=== PATIENT | male | born 1940 | race Caucasian/White ===

== ENCOUNTER 2021-05-27 08:35 | Emergency (ER) | payer MEDICARE, SELFPAY ==
[2021-05-27] VITALS (12 sets, daily range): BP systolic 105–151; BP diastolic 39–69; PULSE 65–94; RESP 16–21; TEMP 36.9–38.8; O2SAT 94–98; BMI 39.2
--- NOTE | ~2021-05-27 | XR_ITS ---
EXAMINATION: CHEST, BILATERAL KNEE AND BILATERAL HIPS. CLINICAL INFORMATION: Fall. COMPARISON: None TECHNIQUE: Chest one view. 4 views each knee, AP pelvis and 2 views each hip. FINDINGS: Chest: The lungs are well-expanded and clear. The heart size and pulmonary vascularity is normal. There is mild spondylosis dorsal spine. No lytic process seen. Right knee: There is moderate to severe loss of tricompartment joint space with periarticular spurring but no loose body seen. No abnormal joint effusion. No acute fracture or dislocation. There is mild varus deformity.. The soft tissues are normal. Left knee: There is moderate loss of medial mild loss of patellofemoral and lateral compartment joint space with moderate periarticular spurring medial compartment. No visible acute fracture, dislocation or subluxation seen. No abnormal joint effusion. No bony erosive changes. AP pelvis: There is loss of bilateral SI joint space. Hip joint spaces are maintained. No visible acute fracture or dislocation seen. Right hip: There is no visible acute fracture, dislocation or lytic process. The soft tissues are normal.. There are enthesophytes along the hip joint and greater trochanter. Left hip: There is joint space is maintained normal. No fracture or dislocation. There is periarticular spurring enthesophytes along the greater trochanter. XR/XR knee RT 4V IMPRESSION: No acute process seen in the chest. 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 No visible fracture or dislocation in either knee. No joint effusion. Mild degenerative changes bilateral SI joints. No acute fracture or dislocation or bony erosive changes in either hip joints. Unremarkable soft tissues.
--- NOTE | ~2021-05-27 | XR_ITS ---
EXAMINATION: CHEST, BILATERAL KNEE AND BILATERAL HIPS. CLINICAL INFORMATION: Fall. COMPARISON: None TECHNIQUE: Chest one view. 4 views each knee, AP pelvis and 2 views each hip. FINDINGS: Chest: The lungs are well-expanded and clear. The heart size and pulmonary vascularity is normal. There is mild spondylosis dorsal spine. No lytic process seen. Right knee: There is moderate to severe loss of tricompartment joint space with periarticular spurring but no loose body seen. No abnormal joint effusion. No acute fracture or dislocation. There is mild varus deformity.. The soft tissues are normal. Left knee: There is moderate loss of medial mild loss of patellofemoral and lateral compartment joint space with moderate periarticular spurring medial compartment. No visible acute fracture, dislocation or subluxation seen. No abnormal joint effusion. No bony erosive changes. AP pelvis: There is loss of bilateral SI joint space. Hip joint spaces are maintained. No visible acute fracture or dislocation seen. Right hip: There is no visible acute fracture, dislocation or lytic process. The soft tissues are normal.. There are enthesophytes along the hip joint and greater trochanter. Left hip: There is joint space is maintained normal. No fracture or dislocation. There is periarticular spurring enthesophytes along the greater trochanter. XR/XR knee LT 4V IMPRESSION: No acute process seen in the chest. 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 No visible fracture or dislocation in either knee. No joint effusion. Mild degenerative changes bilateral SI joints. No acute fracture or dislocation or bony erosive changes in either hip joints. Unremarkable soft tissues.
--- NOTE | ~2021-05-27 | XR_ITS ---
EXAMINATION: CHEST, BILATERAL KNEE AND BILATERAL HIPS. CLINICAL INFORMATION: Fall. COMPARISON: None TECHNIQUE: Chest one view. 4 views each knee, AP pelvis and 2 views each hip. FINDINGS: Chest: The lungs are well-expanded and clear. The heart size and pulmonary vascularity is normal. There is mild spondylosis dorsal spine. No lytic process seen. Right knee: There is moderate to severe loss of tricompartment joint space with periarticular spurring but no loose body seen. No abnormal joint effusion. No acute fracture or dislocation. There is mild varus deformity.. The soft tissues are normal. Left knee: There is moderate loss of medial mild loss of patellofemoral and lateral compartment joint space with moderate periarticular spurring medial compartment. No visible acute fracture, dislocation or subluxation seen. No abnormal joint effusion. No bony erosive changes. AP pelvis: There is loss of bilateral SI joint space. Hip joint spaces are maintained. No visible acute fracture or dislocation seen. Right hip: There is no visible acute fracture, dislocation or lytic process. The soft tissues are normal.. There are enthesophytes along the hip joint and greater trochanter. Left hip: There is joint space is maintained normal. No fracture or dislocation. There is periarticular spurring enthesophytes along the greater trochanter. XR/XR chest 1V IMPRESSION: No acute process seen in the chest. 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 No visible fracture or dislocation in either knee. No joint effusion. Mild degenerative changes bilateral SI joints. No acute fracture or dislocation or bony erosive changes in either hip joints. Unremarkable soft tissues.
--- NOTE | ~2021-05-27 | CT_ITS ---
EXAMINATION: CT ABDOMEN AND PELVIS WITH CONTRAST CLINICAL INFORMATION: Elevated WBC. COMPARISON: Renal ultrasound of 05/21/2021 TECHNIQUE: Multidetector volumetric images were obtained from the superior aspect of the liver through the pubic symphysis following administration 85 mL of Omnipaque 350 intravenous contrast. Sagittal and coronal reformatted images were obtained on the technologist's workstation. Oral contrast: No This CT examination was performed using dose optimization techniques as appropriate, variously including the following: *Automated exposure control *Adjustment of mA and/or kV according to patient size (this includes techniques or standardized protocols for targeted exams where dose is matched to indication/reason for exam; i.e. extremities or head) *Use of iterative reconstruction technique DLP: 1163 mGy-cm FINDINGS: LUNG BASES: Mild bronchiectatic changes are noted at the lung bases. Minimal dependent atelectasis. No pleural or pericardial effusion. Cardiac size is normal. LIVER, GALLBLADDER, AND BILIARY TREE: The liver is normal in size, shape and attenuation. Innumerable diffusely scattered hypodense liver lesions are noted of varying sizes ranging from a few millimeters to a largest one at the junction of hepatic segments 5 and 6 measuring 3.9 cm in maximum dimension. The lesions greater than 1 cm in size and represent cysts by CT Hounsfield units criteria. Subcentimeter lesions are too small to characterize accurately. Several of the liver lesions demonstrate peripheral rim calcifications. The gallbladder is unremarkable with no evidence of radiopaque gallstones, gallbladder wall thickening, or obvious pericholecystic inflammatory changes. No biliary ductal dilatation. Common bile duct is normal in caliber and there is no evidence of filling defect in the common bile duct. PANCREAS: Unremarkable. SPLEEN: Unremarkable. ADRENAL GLANDS: Unremarkable. KIDNEYS AND URETERS: The kidneys are normal in size, shape and attenuation. A 4.6 cm partially exophytic hypodense lesion is noted from the lower pole of the left kidney laterally representing a cyst by CT Hounsfield units criteria; there is likely thin septation with punctate calcifications in the superior inferior aspect of the cyst (series 4 image 273, 303). The cyst is not significantly changed in size compared to previous ultrasound of 08/12/2019. No imaging follow-up of this cyst is recommended. There is no evidence of radiopaque urinary tract calculi, hydroureteronephrosis or significant perinephric stranding. There is an ill-defined area of abnormal hypoattenuation in the lower pole of the right kidney (series 4 image 309, series 5 image 48); possibility of focal pyelonephritis in this region cannot be excluded. A few small scattered hypodense right renal lesions, with the most prominent one in the mid kidney anteromedially represents a benign cyst by CT Hounsfield units criteria and no further imaging follow-up is recommended. A 1.1 cm peripelvic cyst in the right renal lower pole posteromedially. BLADDER: Unremarkable. 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 There is peristomal hernia containing omental fat and multiple nonobstructed small bowel loops. There is no evidence of abnormal bowel dilatation or bowel obstruction. 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 LYMPH NODES: No pathologically enlarged lymph nodes are seen. VASCULAR: The aortoiliac vessels are normal in caliber. Moderate to severe calcific atherosclerosis of the aorta and iliac vessels. PELVIC VISCERA: Unremarkable. OSSEOUS STRUCTURES: Prominent size anterolateral endplate osteophytes are noted in the visualized spine. Facet arthropathy in the lower lumbar spine. No acute or suspicious osseous lesions. Partial fusion of the bilateral sacroiliac joints is suspected. CT/CT abdomen pelvis w con IMPRESSION: Focal area of abnormal hypoattenuation in the lower pole of the right kidney is nonspecific, findings can be seen in the setting of pyelonephritis. No evidence of renal parenchymal or perirenal abscess collection at this time. Recommend clinical correlation and correlation with lab values and urinalysis. Multiple bilateral hypodense renal lesions representing cysts. No further imaging follow-up of this cyst is recommended. Innumerable hypodense liver lesions as detailed above; findings are consistent with polycystic liver disease. Changes suggestive of total colectomy and an ileostomy in the right lower abdominal quadrant with stomal/peristomal hernia containing omental fat and multiple nonobstructed small bowel loops. No evidence of abnormal bowel dilatation or bowel obstruction. Recommend correlation with surgical history.
--- NOTE | ~2021-05-27 | XR_ITS ---
EXAMINATION: CHEST, BILATERAL KNEE AND BILATERAL HIPS. CLINICAL INFORMATION: Fall. COMPARISON: None TECHNIQUE: Chest one view. 4 views each knee, AP pelvis and 2 views each hip. FINDINGS: Chest: The lungs are well-expanded and clear. The heart size and pulmonary vascularity is normal. There is mild spondylosis dorsal spine. No lytic process seen. Right knee: There is moderate to severe loss of tricompartment joint space with periarticular spurring but no loose body seen. No abnormal joint effusion. No acute fracture or dislocation. There is mild varus deformity.. The soft tissues are normal. Left knee: There is moderate loss of medial mild loss of patellofemoral and lateral compartment joint space with moderate periarticular spurring medial compartment. No visible acute fracture, dislocation or subluxation seen. No abnormal joint effusion. No bony erosive changes. AP pelvis: There is loss of bilateral SI joint space. Hip joint spaces are maintained. No visible acute fracture or dislocation seen. Right hip: There is no visible acute fracture, dislocation or lytic process. The soft tissues are normal.. There are enthesophytes along the hip joint and greater trochanter. Left hip: There is joint space is maintained normal. No fracture or dislocation. There is periarticular spurring enthesophytes along the greater trochanter. XR/XR hip BI w PEL1V IMPRESSION: No acute process seen in the chest. 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 No visible fracture or dislocation in either knee. No joint effusion. Mild degenerative changes bilateral SI joints. No acute fracture or dislocation or bony erosive changes in either hip joints. Unremarkable soft tissues.
--- NOTE | ~2021-05-27 | CT_ITS ---
EXAMINATION: CT BRAIN AND CT CERVICAL SPINE WITHOUT CONTRAST. CLINICAL INFORMATION: Fall. COMPARISON: None TECHNIQUE: 5 mm thin axial and reformatted 2 mm thin sagittal and coronal images of brain were obtained. Subsequently axial 3 mm thin and reformatted 2 mm thin sagittal and coronal images of cervical spine were obtained. DLP 1718 mGy. FINDINGS: Brain: There is no acute intra-axial, extra-axial bleed, masses, collection or midline shift. There is no acute infarction evolution. There is no edema. The lateral ventricles are symmetrical in size and configuration with mild prominence. There is mild periventricular hypodensity in both cerebral hemispheres without mass effect. Bone windows reveal no calvarial abnormality. Cervical spine: There is mild straightening of cervical lordosis. The vertebral heights are normal. There is minimal grade 1 anterolisthesis C3 over C4 and C4 over C5. There is loss of C5-C6 and C6-C7 and C7-T1 disc heights with moderate ventral and posterior spondylosis. No visible acute fracture, dislocation or subluxation seen. The craniovertebral junction and the C1-C2 alignment is normal except for mild degenerative spurring and the C1-C2 alignment. There is moderate left C2-C3, bilateral C3-C4, C4-C5 facet joint arthropathy and hypertrophy. The lung apices are clear. The thyroid glands are symmetrical and normal. Visualized salivary glands are symmetrical and normal. The prevertebral and the paravertebral soft tissues are normal. No visible acute fracture, dislocation or subluxation seen. CT/CT cervical spine wo con IMPRESSION: No acute intracranial process seen. No acute fracture or dislocation cervical spine. There are degenerative disc changes and spondylosis C5-C6 through C7-T1 disc levels. Grade 1 anterolisthesis C3 over C4 and C4-C5.
--- NOTE | 2021-05-27 08:58 | ECG_ITS ---
Test Reason : GENERALIZED WEAKNESS Blood Pressure : / mmHG Vent. Rate : 076 BPM Atrial Rate : 076 BPM P-R Int : 216 ms QRS Dur : 146 ms QT Int : 428 ms P-R-T Axes : 073 069 013 degrees QTc Int : 481 ms Sinus rhythm with 1st degree A-V block with Premature atrial complexes Right bundle branch block Abnormal ECG No previous ECGs available Referred By: Finn Shelton Electronically Signed By:MIO GARVEY MD
[2021-05-27 09:26] LABS: Basophils Percent Auto 0.1 % (0-2); Eosinophils Percent Auto 0.1 % (0-4); Hematocrit 39.9 % (42.0-52.0); Hemoglobin 12.5 g/dl (14.0-18.0); Imm Gran Abs Auto 0.08 X10*3/uL (0.00-0.03); Imm Gran Pct Auto 0.5 % (0.0-0.4); Lymphocytes Absolute Auto 0.4 X10*3/uL (1.2-4.9); Lymphocytes Percent Auto 2.5 % (20-40); MANUAL DIFF FLAG SCAN; Mean Corpuscular HGB Conc 31.3 g/dl (31.0-36.0); Mean Corpuscular Hemoglobin 31.4 pg (27.0-33.0); Mean Corpuscular Volume 100.3 fL (80.0-98.0); Mean Platelet Volume 8.7 fL (9.4-12.4); Monocytes Absolute Auto 0.7 X10*3/uL (0.1-1.2); Monocytes Percent Auto 4.2 % (2-11); Neutrophils Absolute Auto 15.1 x10*3/uL (2.0-8.3); Neutrophils Percent Auto 92.6 % (45-73); Platelet Count 161 X10*3/uL (160-400); Red Blood Count 3.98 X10*6/uL (4.60-5.80); Red Cell Distribution Width 13.4 % (11.0-16.0); SCAN SMEAR FLAG 1; White Blood Count 16.3 X10*3/uL (4.8-10.8)
--- NOTE | 2021-05-27 09:27 | ED_ITS ---
HPI - General Adult General Chief complaint: Fall <TANK Manuel - Last Filed: 05/27/21 17:09> Stated complaint: fall/weakness <TANK Manuel - Last Filed: 05/27/21 17:09> Time Seen by Provider: 05/27/21 08:57 <TANK Manuel - Last Filed: 05/27/21 17:09> Source: patient <TANK Manuel - Last Filed: 05/27/21 17:09> Mode of arrival: ambulatory <TANK Manuel - Last Filed: 05/27/21 17:09> Limitations: no limitations <TANK Manuel Last Filed: 05/27/21 17:09> History of Present Illness HPI narrative: 80-year-old male with history of high retention, DVT, ulcers colitis, stents placed 15 years ago and his heart presents to the ED for fall. Patient states walking from the bathroom back to his room and the floor was cleaned and was wet which caused him to slip and fall onto his knees. Patient states since yesterday with generalized weakness but had no neuro deficits. Patient does feel fatigued. Patient denied any slurred speech, loss of vision, paralysis of extremities, facial droop, or dizziness. States yesterday he also fell had another mechanical fall. Patient usually ambulate with walker. Patient states since incident this morning asymptomatic <TANK Manuel - Last Filed: 05/27/21 17:09> Related Data Home medications: Home Medications Medication Instructions Recorded Confirmed Flomax 0.4 mg PO BEDTIME 05/27/21 05/27/21 Januvia 100 mg PO DAILY 05/27/21 05/27/21 atenolol 25 mg tablet 1 tab PO DAILY 05/27/21 05/27/21 donepezil 10 mg tablet 1 tab PO DAILY 05/27/21 05/27/21 fenofibrate 160 mg tablet 1 tab PO DAILY 05/27/21 05/27/21 gabapentin 100 mg capsule 1 cap PO TID 05/27/21 05/27/21 glipizide 10 mg tablet 10 mg PO BID 05/27/21 05/27/21 insulin glargine 100 unit/mL 100 unit SUBCUT 05/27/21 subcutaneous solution (Lantus U-100 Insulin) rivaroxaban 20 mg tablet (Xarelto) 1 tab PO DAILY 05/27/21 05/27/21 <TANK Manuel Last Filed: 05/27/21 17:09> Allergies/adverse reactions: Allergies Allergy/AdvReac Type Severity Reaction Status Date / Time No Known Allergies Allergy Unverified 03/19/20 18:26 <TANK Manuel Last Filed: 05/27/21 17:09> Review of Systems Review of Systems: Yes all other systems are reviewed and are negative <TANK Manuel Last Filed: 05/27/21 17:09> Constitutional: Constitutional: Reports as per HPI, Reports no additional co nstitutional complaints and Reports fatigue <TANK Manuel Last Filed: 05/27/21 17:09> Eyes: Eyes: Reports as per HPI and Reports no additional eye complaints <TANK Manuel Last Filed: 05/27/21 17:09> ENT: Reports system reviewed and no additional complaints, except as documented and Reports as per HPI <TANK Manuel Last Filed: 05/27/21 17:09> Cardiovascular: Cardiovascular: Reports as per HPI and Reports no additional cardiovascular complaints <TANK Manuel Last Filed: 05/27/21 17:09> Respiratory: Respiratory: Reports as per HPI and Reports no additional respiratory complaints <TANK Manuel Last Filed: 05/27/21 17:09> Gastrointestinal: Gastrointestinal: Reports as per HPI and Reports no additional gastrointestinal complaints <TANK Manuel Last Filed: 05/27 17:09> Genitourinary: Genitourinary: Reports no additional male genitourinary complaints and Reports as per HPI <TANK Manuel Last Filed: 05/27/21 17:09> Musculoskeletal: Musculoskeletal: Reports no additional musculoskeletal complaints and Reports as per HPI <TANK Manuel Last Filed: 05/27/21 17:09> Comments: Bilateral knee pain <TANK Manuel Last Filed: 05/27/21 17:09> Neurologic: Reports system reviewed and no additional complaints, except as documented and Reports as per HPI <TANK Manuel Last Filed: 05/27/21 17:09> Psychiatric: Psychiatric: Reports no additional psychiatric complaints and Reports as per HPI <TANK Manuel - Last Filed: 05/27/21 17:09> Endocrine: Endocrine: Reports fatigue <TANK Manuel - Last Filed: 05/27/21 17:09> [facility] Social History Social History: Social History Alcohol intake: never Patient Tobacco Use Status: Never used Tobacco Use of substances other than those prescribed or required for medical reasons: No Advance Directives: Yes Advance Directives Information Provided: No Advance Directives on File: No <TANK Manuel - Last Filed: 05/27/21 17:09> Physical Exam Vital Signs: Vital Signs: Last Vital Signs Temp 99.1 F 05/27/21 14:07 Pulse 84 05/27/21 14:07 Resp 18 05/27/21 14:07 BP 151/53 H 05/27/21 14:07 Pulse Ox 96 05/27/21 14:07 Body Mass Index 39.2 <TANK Manuel - Last Filed: 05/27/21 17:09> Vital Signs: Last Vital Signs Temp 99.1 F 05/27/21 14:07 Pulse 84 05/27/21 14:07 Resp 18 05/27/21 14:07 BP 151/53 H 05/27/21 14:07 Pulse Ox 96 05/27/21 14:07 Body Mass Index 39.2 <Nav De La Cruz MD - Last Filed: 05/27/21 13:57> Const: General: cooperative, healthy appearing, comfortable, no acute distress, well developed, alert, awake and Physically active <TANK Manuel - Last Filed: 05/27/21 17:09> Orientation/consciousness: patient oriented x3 <TANK Manuel - Last Filed: 05/27/21 17:09> HENMT: Head: Yes normal to inspection, Yes No palpable skull fracture present, Yes normocephalic, Yes atraumatic, Yes abrasion, No Selby's sign, No contusion, No cranial bruits, No hematoma, No laceration, No occipital foramen tenderness, No palpable skull fracture, No raccoon eyes, No scalp lesion, No scalp tenderness and No Temporal artery tenderness present <TANK Manuel - Last Filed: 05/27/21 17:09> Eyes: General: appearance normal, both eyes and all related structures <Finn Nikita, PA Tami Last Filed: 05/27/21 17:09> Neck: Neck: Yes normal visual inspection, Yes full ROM, Yes no lymphadenopathy, Yes no meningeal signs, Yes trachea midline, Yes supple and No tender <Finn Nikita, PA Last Filed: 05/27/21 17:09> Chest: Chest palpation & inspection: normal inspection of the chest and normal palpation of entire chest wall <TANK Manuel Last Filed: 05/27/21 17:09> Resp: Effort & Inspection: normal respiratory effort and able to speak in complete sentences <TANK Manuel Last Filed: 05/27/21 17:09> Auscultation: clear to auscultation bilaterally <TANK Manuel Filed: 05/27/21 17:09> GI: Inspection: Yes normal to inspection and No abdominal wall ecchymosis <TANK Manuel Filed: 05/27/21 17:09> Palpation (GI): Soft to palpation, not firm, nontender, no guarding and not rigid <Finn Nikita, PA Last Filed: 05/27/21 17:09> : General: No CVA tenderness and Yes no CVA tenderness <Finn Nikita, PA Filed: 05/27/21 17:09> Back/Spine/Pelvis: Back: no CVA tenderness, No CVA tenderness and No back tenderness <TANK Manuel Last Filed: 05/27/21 17:09> Skin: General skin exam: no rashes or lesions noted and elasticity normal <Finn Nikita, PA Filed: 05/27/21 17:09> Neuro: Other: Negative facial droop. Negative pronator drift. All extremities equal strength 5+. [id number] and rapid hand movement intact. Negative slurred speech. <TANK Manuel Last Filed: 05/27/21 17:09> General: patient oriented x3, gait normal, no meningeal signs and CN's II-XI intact bilaterally <TANK Manuel Last Filed: 05/27/21 17:09> Cranial nerves: Yes CN's II-XII intact bilaterally <TANK Manuel Last Filed: 05/27/21 17:09> Extrem: Other: Patient able to move all extremities. Negative for any deformity, crepitus, or tenderness on evaluation of extremities. Negative for a ny internal/ external rotation of lower extremities. Patient states right knee pain but states chronic and is supposed to have knee replacement surgery. Patient states since fall able to walk with walker at home. Patient came to the ED to be evaluated <TANK Manuel Last Filed: 05/27/21 17:09> General: Yes normal to inspection and Yes full ROM <TANK Manuel Last Filed: 05/27/21 17:09> Psych: Appearance: grossly normal, well kempt and not disheveled <TANK Manuel Last Filed: 05/27/21 17:09> NIH Stroke Scale Internal: Other <TANK Manuel Last Filed: 05/27/21 17:09> Level of Consciousness: Alert <TANK Manuel Last Filed: 05/27/21 17:09> Level of Consciousness Questions: Answers both questions correctly <TANK Manuel Last Filed: 05/27/21 17:09> Level of Consciousness Commands: Performs both tasks correctly <TANK Manuel Last Filed: 05/27/21 17:09> Best Gaze: Normal <TANK Manuel Last Filed: 05/27/21 17:09> Visual: No visual loss <TANK Manuel Last Filed: 05/27/21 17:09> Facial Palsy: Normal <TANK Manuel Last Filed: 05/27/21 17:09> Motor Arm (Right): No drift <TANK Manuel Last Filed: 05/27/21 17:09> Motor Arm (Left): No drift <TANK Manuel Last Filed: 05/27/21 17:09> Motor Leg (Right): No drift <TANK Manuel Last Filed: 05/27/21 17:09> Motor Leg (Left): No drift <TANK Manuel Last Filed: 05/27/21 17:09> Limb Ataxia: Absent <Finn Nikita, PA - Last Filed: 05/27/21 17:09> Sensory: Normal <Finn Nikita, PA - Last Filed: 05/27/21 17:09> Best Language: No aphasia <Finn Nikita, PA - Last Filed: 05/27/21 17:09> Dysarthia: Normal <Finn Nikita, PA - Last Filed: 05/27/21 17:09> Extinction and Inattention: No abnormality <TANK Manuel - Last Filed: 05/27/21 17:09> Score: 0 <Finn Nikita, PA - Last Filed: 05/27/21 17:09> Course Course Course Narrative: Patient alert oriented x3 and well appearing. Today patient fell onto his knees yesterday he fell in his head. Presently patient is symptomatic. Due to patient stating fatigue since yesterday and mechanical fall will do medical workup. EKG, troponin, CPK, chest x-ray, UA, and other x-rays ordered to make sure there is no fracture although patient denies any pain anywhere in the body. <TANK Manuel - Last Filed: 05/27/21 17:09> Reevaluation(s) Reevaluation #1: Initial orthostatics were positive. EKG negative STEMI. White blood cell count [id number]. Presently no source of infection. Reason for chest x-ray UA results. CT normal. <TANK Manuel - Last Filed: 05/27/21 17:09> Reevaluation #2: I agree with the history and plan <Nav De La Cruz MD - Last Filed: 05/27/21 13:57> Time: 13:57 <Nav De La Cruz MD - Last Filed: 05/27/21 13:57> Reevaluation #3: Patient's repeat orthostatics normal. Both troponins negative. Images negative for fracture. CT abdomen does not show any acute medical/surgical etiology. CT scan states possible pyelonephritis but patient has a normal UA and most likely has polycystic disease. Patient was given walker to try to ambulate with a but still states feeling fatigue. Negative for any neuro deficits. Negative for any nystagmus. Discussed with Dr. De La Cruz and we agreed not suspecting posterior stroke. Patient had initial orthostatic hypotension which caused his weakness. Patient Told me front of his son that he admits to not drinking water but losts of coffee and food. Son and patient states patient was admitted 3 times for similar presentation for dehydration. Patient agreeable with plan for overnight stay in the ER for PT case management e valuation morning. <TANK Manuel - Last Filed: 05/27/21 17:09> Medical Decision Making Lab Data Result diagrams: : 05/27/21 09:17 05/27/21 09:17 <TANK Manuel - Last Filed: 05/27/21 17:09> Labs: Lab Results 05/27/21 05/27/21 05/27/21 Range/Units 09:17 09:17 09:17 WBC 16.3 H (4.8-10.8) X10*3/uL RBC 3.98 L (4.60-5.80) X10*6/uL Hgb 12.5 L (14.0-18.0) g/dl Hct 39.9 L (42.0-52.0) % MCV 100.3 H (80.0-98.0) fL MCH 31.4 (27.0-33.0) pg MCHC 31.3 (31.0-36.0) g/dl RDW 13.4 (11.0-16.0) % Plt Count 161 (160-400) X10*3/uL MPV 8.7 L (9.4-12.4) fL Immature Gran % (Auto) 0.5 H (0.0-0.4) % Neut % (Auto) 92.6 H (45-73) % Lymph % (Auto) 2.5 L (20-40) % [place] % (Auto) 4.2 (2-11) % Eos % (Auto) 0.1 (0-4) % Baso % (Auto) 0.1 (0-2) % Lymph # (Auto) 0.4 L (1.2-4.9) X10*3/uL [place] # (Auto) 0.7 (0.1-1.2) X10*3/uL Eos # (Auto) 0.0 (0.0-0.4) X10*3/uL Baso # (Auto) 0.0 (0.0-0.2) X10*3/uL Abs Immat Gran (auto) 0.08 H (0.00-0.03) X10*3/uL Absolute Neuts (auto) 15.1 H (2.0-8.3) x10*3/uL Absolute Nucleated RBC 0.000 (0.0-0.012) X10*3/uL Nucleated RBC % (auto) 0.0 (0.0-0.2) /100WBC Smear Tech's Comments VERIFIED PT (9.9-13.0) SEC INR (0.9-1.1) APTT (24.1-38.0) SEC Sodium 141 (135-145) mmol/L Potassium 4.7 (3.3-5.1) mmol/L Chloride 107 (96-108) mmol/L Carbon Dioxide 25 (22-29) mmol/L Anion Gap 14 (12-20) BUN 23 H (9-16) mg/dL Creatinine 1.33 (0.5-1.4) mg/dL Estim Creat Clear Calc 51.5 Estimated GFR 51 Random Glucose 108 (60-115) mg/dL Lactic Acid (0.5-2.0) mmol/L Calcium 9.5 (8.4-10.2) mg/dL Total Bilirubin 0.8 (0.0-1.0) mg/dL AST 26 (5-37) U/L ALT 15 (0-40) U/L Alkaline Phosphatase 59 (39-117) U/L Total Creatine Kinase 299 H (38-174) U/L Troponin I High Sens 22.2 (<3.5-35.0) ng/L B-Natriuretic Peptide 73 (<100) pg/mL Total Protein 6.4 L (6.5-8.0) g/dL Albumin 3.9 (3.5-5.0) g/dL Urine Color Urine Appearance Urine pH (5.0-8.0) Ur Specific [place] (1.005-1.025) Urine Protein (NEG-TRACE) MG/DL Urine Glucose (UA) (NEG) MG/DL Urine Ketones (NEG) MG/DL Urine Blood (NEG) Urine Nitrite (NEG) Ur Leukocyte Esterase (NEG) Urine RBC (0) /HPF Urine WBC (0-4) /HPF Ur Squamous Epith Cells /LPF Urine Bacteria /LPF Urine Mucus /LPF COVID-19 (MARTHA) (Negative) COVID-19 Clin Com 05/27/21 05/27/21 05/27/21 Range/Units 09:17 10:02 10:50 WBC (4.8-10.8) X10*3/uL RBC (4.60-5.80) X10*6/uL Hgb (14.0-18.0) g/dl Hct (42.0-52.0) % MCV (80.0-98.0) fL MCH (27.0-33.0) pg MCHC (31.0-36.0) g/dl RDW (11.0-16.0) % Plt Count (160-400) X10*3/uL MPV (9.4-12.4) fL Immature Gran % (Auto) (0.0-0.4) % Neut % (Auto) (45-73) % Lymph % (Auto) (20-40) % [place] % (Auto) (2-11) % Eos % (Auto) (0-4) % Baso % (Auto) (0-2) % Lymph # (Auto) (1.2-4.9) X10*3/uL [place] # (Auto) (0.1-1.2) X10*3/uL Eos # (Auto) (0.0-0.4) X10*3/uL Baso # (Auto) (0.0-0.2) X10*3/uL Abs Immat Gran (auto) (0.00-0.03) X10*3/uL Absolute Neuts (auto) (2.0-8.3) x10*3/uL Absolute Nucleated RBC (0.0-0.012) X10*3/uL Nucleated RBC % (auto) (0.0-0.2) /100WBC Smear Tech's Comments PT 22.7 H (9.9-13.0) SEC INR 2.0 H (0.9-1.1) APTT 40.0 H (24.1-38.0) SEC Sodium (135-145) mmol/L Potassium (3.3-5.1) mmol/L Chloride (96-108) mmol/L Carbon Dioxide (22-29) mmol/L Anion Gap (12-20) BUN (9-16) mg/dL Creatinine (0.5-1.4) mg/dL Estim Creat Clear Calc Estimated GFR Random Glucose (60-115) mg/dL Lactic Acid 1.1 (0.5-2.0) mmol/L Calcium (8.4-10.2) mg/dL Total Bilirubin (0.0-1.0) mg/dL AST (5-37) U/L ALT (0-40) U/L Alkaline Phosphatase (39-117) U/L Total Creatine Kinase (38-174) U/L Troponin I High Sens (<3.5-35.0) ng/L B-Natriuretic Peptide (<100) pg/mL Total Protein (6.5-8.0) g/dL Albumin (3.5-5.0) g/dL Urine Color YELLOW Urine Appearance CLEAR Urine pH 5.5 (5.0-8.0) Ur Specific [place] 1.025 (1.005-1.025) Urine Protein NEG (NEG-TRACE) MG/DL Urine Glucose (UA) NEG (NEG) MG/DL Urine Ketones NEG (NEG) MG/DL Urine Blood 1+ H (NEG) Urine Nitrite NEG (NEG) Ur Leukocyte Esterase NEG (NEG) Urine RBC 1-4 (0) /HPF Urine WBC 0-2 (0-4) /HPF Ur Squamous Epith Cells TRACE /LPF Urine Bacteria NONE /LPF Urine Mucus TRACE /LPF COVID-19 (MARTHA) (Negative) COVID-19 Clin Com 05/27/21 05/27/21 Range/Units 11:57 12:34 WBC (4.8-10.8) X10*3/uL RBC (4.60-5.80) X10*6/uL Hgb (14.0-18.0) g/dl Hct (42.0-52.0) % MCV (80.0-98.0) fL MCH (27.0-33.0) pg MCHC (31.0-36.0) g/dl RDW (11.0-16.0) % Plt Count (160-400) X10*3/uL MPV (9.4-12.4) fL Immature Gran % (Auto) (0.0-0.4) % Neut % (Auto) (45-73) % Lymph % (Auto) (20-40) % [place] % (Auto) (2-11) % Eos % (Auto) (0-4) % Baso % (Auto) (0-2) % Lymph # (Auto) (1.2-4.9) X10*3/uL [place] # (Auto) (0.1-1.2) X10*3/uL Eos # (Auto) (0.0-0.4) X10*3/uL Baso # (Auto) (0.0-0.2) X10*3/uL Abs Immat Gran (auto) (0.00-0.03) X10*3/uL Absolute Neuts (auto) (2.0-8.3) x10*3/uL Absolute Nucleated RBC (0.0-0.012) X10*3/uL Nucleated RBC % (auto) (0.0-0.2) /100WBC Smear Tech's Comments PT (9.9-13.0) SEC INR (0.9-1.1) APTT (24.1-38.0) SEC Sodium (135-145) mmol/L Potassium (3.3-5.1) mmol/L Chloride (96-108) mmol/L Carbon Dioxide (22-29) mmol/L Anion Gap (12-20) BUN (9-16) mg/dL Creatinine (0.5-1.4) mg/dL Estim Creat Clear Calc Estimated GFR Random Glucose (60-115) mg/dL Lactic Acid (0.5-2.0) mmol/L Calcium (8.4-10.2) mg/dL Total Bilirubin (0.0-1.0) mg/dL AST (5-37) U/L ALT (0-40) U/L Alkaline Phosphatase (39-117) U/L Total Creatine Kinase (38-174) U/L Troponin I High Sens 24.7 (<3.5-35.0) ng/L B-Natriuretic Peptide (<100) pg/mL Total Protein (6.5-8.0) g/dL Albumin (3.5-5.0) g/dL Urine Color Urine Appearance Urine pH (5.0-8.0) Ur Specific [place] (1.005-1.025) Urine Protein (NEG-TRACE) MG/DL Urine Glucose (UA) (NEG) MG/DL Urine Ketones (NEG) MG/DL Urine Blood (NEG) Urine Nitrite (NEG) Ur Leukocyte Esterase (NEG) Urine RBC (0) /HPF Urine WBC (0-4) /HPF Ur Squamous Epith Cells /LPF Urine Bacteria /LPF Urine Mucus /LPF COVID-19 (MARTHA) Negative (Negative) COVID-19 Clin Com See Note <TANK Manuel - Last Filed: 05/27/21 17:09> Lab Results 05/27/21 05/27/21 05/27/21 Range/Units 09:17 09:17 09:17 WBC 16.3 H (4.8-10.8) X10*3/uL RBC 3.98 L (4.60-5.80) X10*6/uL Hgb 12.5 L (14.0-18.0) g/dl Hct 39.9 L (42.0-52.0) % MCV 100.3 H (80.0-98.0) fL MCH 31.4 (27.0-33.0) pg MCHC 31.3 (31.0-36.0) g/dl RDW 13.4 (11.0-16.0) % Plt Count 161 (160-400) X10*3/uL MPV 8.7 L (9.4-12.4) fL Immature Gran % (Auto) 0.5 H (0.0-0.4) % Neut % (Auto) 92.6 H (45-73) % Lymph % (Auto) 2.5 L (20-40) % [place] % (Auto) 4.2 (2-11) % Eos % (Auto) 0.1 (0-4) % Baso % (Auto) 0.1 (0-2) % Lymph # (Auto) 0.4 L (1.2-4.9) X10*3/uL [place] # (Auto) 0.7 (0.1-1.2) X10*3/uL Eos # (Auto) 0.0 (0.0-0.4) X10*3/uL Baso # (Auto) 0.0 (0.0-0.2) X10*3/uL Abs Immat Gran (auto) 0.08 H (0.00-0.03) X10*3/uL Absolute Neuts (auto) 15.1 H (2.0-8.3) x10*3/uL Absolute Nucleated RBC 0.000 (0.0-0.012) X10*3/uL Nucleated RBC % (auto) 0.0 (0.0-0.2) /100WBC Smear Tech's Comments VERIFIED PT (9.9-13.0) SEC INR (0.9-1.1) APTT (24.1-38.0) SEC Sodium 141 (135-145) mmol/L Potassium 4.7 (3.3-5.1) mmol/L Chloride 107 (96-108) mmol/L Carbon Dioxide 25 (22-29) mmol/L Anion Gap 14 (12-20) BUN 23 H (9-16) mg/dL Creatinine 1.33 (0.5-1.4) mg/dL Estim Creat Clear Calc 51.5 Estimated GFR 51 Random Glucose 108 (60-115) mg/dL Lactic Acid (0.5-2.0) mmol/L Calcium 9.5 (8.4-10.2) mg/dL Total Bilirubin 0.8 (0.0-1.0) mg/dL AST 26 (5-37) U/L ALT 15 (0-40) U/L Alkaline Phosphatase 59 (39-117) U/L Total Creatine Kinase 299 H (38-174) U/L Troponin I High Sens 22.2 (<3.5-35.0) ng/L B-Natriuretic Peptide 73 (<100) pg/mL Total Protein 6.4 L (6.5-8.0) g/dL Albumin 3.9 (3.5-5.0) g/dL Urine Color Urine Appearance Urine pH (5.0-8.0) Ur Specific [place] (1.005-1.025) Urine Protein (NEG-TRACE) MG/DL Urine Glucose (UA) (NEG) MG/DL Urine Ketones (NEG) MG/DL Urine Blood (NEG) Urine Nitrite (NEG) Ur Leukocyte Esterase (NEG) Urine RBC (0) /HPF Urine WBC (0-4) /HPF Ur Squamous Epith Cells /LPF Urine Bacteria /LPF Urine Mucus /LPF COVID-19 (MARTHA) (Negative) COVID-19 Clin Com 05/27/21 05/27/21 05/27/21 Range/Units 09:17 10:02 10:50 WBC (4.8-10.8) X10*3/uL RBC (4.60-5.80) X10*6/uL Hgb (14.0-18.0) g/dl Hct (42.0-52.0) % MCV (80.0-98.0) fL MCH (27.0-33.0) pg MCHC (31.0-36.0) g/dl RDW (11.0-16.0) % Plt Count (160-400) X10*3/uL MPV (9.4-12.4) fL Immature Gran % (Auto) (0.0-0.4) % Neut % (Auto) (45-73) % Lymph % (Auto) (20-40) % [place] % (Auto) (2-11) % Eos % (Auto) (0-4) % Baso % (Auto) (0-2) % Lymph # (Auto) (1.2-4.9) X10*3/uL [place] # (Auto) (0.1-1.2) X10*3/uL Eos # (Auto) (0.0-0.4) X10*3/uL Baso # (Auto) (0.0-0.2) X10*3/uL Abs Immat Gran (auto) (0.00-0.03) X10*3/uL Absolute Neuts (auto) (2.0-8.3) x10*3/uL Absolute Nucleated RBC (0.0-0.012) X10*3/uL Nucleated RBC % (auto) (0.0-0.2) /100WBC Smear Tech's Comments PT 22.7 H (9.9-13.0) SEC INR 2.0 H (0.9-1.1) APTT 40.0 H (24.1-38.0) SEC Sodium (135-145) mmol/L Potassium (3.3-5.1) mmol/L Chloride (96-108) mmol/L Carbon Dioxide (22-29) mmol/L Anion Gap (12-20) BUN (9-16) mg/dL Creatinine (0.5-1.4) mg/dL Estim Creat Clear Calc Estimated GFR Random Glucose (60-115) mg/dL Lactic Acid 1.1 (0.5-2.0) mmol/L Calcium (8.4-10.2) mg/dL Total Bilirubin (0.0-1.0) mg/dL AST (5-37) U/L ALT (0-40) U/L Alkaline Phosphatase (39-117) U/L Total Creatine Kinase (38-174) U/L Troponin I High Sens (<3.5-35.0) ng/L B-Natriuretic Peptide (<100) pg/mL Total Protein (6.5-8.0) g/dL Albumin (3.5-5.0) g/dL Urine Color YELLOW Urine Appearance CLEAR Urine pH 5.5 (5.0-8.0) Ur Specific [place] 1.025 (1.005-1.025) Urine Protein NEG (NEG-TRACE) MG/DL Urine Glucose (UA) NEG (NEG) MG/DL Urine Ketones NEG (NEG) MG/DL Urine Blood 1+ H (NEG) Urine Nitrite NEG (NEG) Ur Leukocyte Esterase NEG (NEG) Urine RBC 1-4 (0) /HPF Urine WBC 0-2 (0-4) /HPF Ur Squamous Epith Cells TRACE /LPF Urine Bacteria NONE /LPF Urine Mucus TRACE /LPF COVID-19 (MARTHA) (Negative) COVID-19 Clin Com 05/27/21 05/27/21 Range/Units 11:57 12:34 WBC (4.8-10.8) X10*3/uL RBC (4.60-5.80) X10*6/uL Hgb (14.0-18.0) g/dl Hct (42.0-52.0) % MCV (80.0-98.0) fL MCH (27.0-33.0) pg MCHC (31.0-36.0) g/dl RDW (11.0-16.0) % Plt Count (160-400) X10*3/uL MPV (9.4-12.4) fL Immature Gran % (Auto) (0.0-0.4) % Neut % (Auto) (45-73) % Lymph % (Auto) (20-40) % [place] % (Auto) (2-11) % Eos % (Auto) (0-4) % Baso % (Auto) (0-2) % Lymph # (Auto) (1.2-4.9) X10*3/uL [place] # (Auto) (0.1-1.2) X10*3/uL Eos # (Auto) (0.0-0.4) X10*3/uL Baso # (Auto) (0.0-0.2) X10*3/uL Abs Immat Gran (auto) (0.00-0.03) X10*3/uL Absolute Neuts (auto) (2.0-8.3) x10*3/uL Absolute Nucleated RBC (0.0-0.012) X10*3/uL Nucleated RBC % (auto) (0.0-0.2) /100WBC Smear Tech's Comments PT (9.9-13.0) SEC INR (0.9-1.1) APTT (24.1-38.0) SEC Sodium (135-145) mmol/L Potassium (3.3-5.1) mmol/L Chloride (96-108) mmol/L Carbon Dioxide (22-29) mmol/L Anion Gap (12-20) BUN (9-16) mg/dL Creatinine (0.5-1.4) mg/dL Estim Creat Clear Calc Estimated GFR Random Glucose (60-115) mg/dL Lactic Acid (0.5-2.0) mmol/L Calcium (8.4-10.2) mg/dL Total Bilirubin (0.0-1.0) mg/dL AST (5-37) U/L ALT (0-40) U/L Alkaline Phosphatase (39-117) U/L Total Creatine Kinase (38-174) U/L Troponin I High Sens 24.7 (<3.5-35.0) ng/L B-Natriuretic Peptide (<100) pg/mL Total Protein (6.5-8.0) g/dL Albumin (3.5-5.0) g/dL Urine Color Urine Appearance Urine pH (5.0-8.0) Ur Specific [place] (1.005-1.025) Urine Protein (NEG-TRACE) MG/DL Urine Glucose (UA) (NEG) MG/DL Urine Ketones (NEG) MG/DL Urine Blood (NEG) Urine Nitrite (NEG) Ur Leukocyte Esterase (NEG) Urine RBC (0) /HPF Urine WBC (0-4) /HPF Ur Squamous Epith Cells /LPF Urine Bacteria /LPF Urine Mucus /LPF COVID-19 (MARTHA) Negative (Negative) COVID-19 Clin Com See Note <Nav De La Cruz MD - Last Filed: 05/27/21 13:57> ECG Data Interpretation: Sinus rhythm with first-degree AV block with premature atrial complexes. Ventricular rate 76. Peer interval 216. QRS 146. QTC 481. Negative <TANK Manuel - Last Filed: 05/27/21 17:09> Discharge Plan Discharge Clinical Impression: Generalized weakness <TANK Manuel - Last Filed: 05/27/21 17:09> Prescriptions: No Action donepezil 10 mg tablet 1 tab PO DAILY RF: 0 atenolol 25 mg tablet 1 tab PO DAILY RF: 0 gabapentin 100 mg capsule 1 cap PO TID RF: 0 fenofibrate 160 mg tablet 1 tab PO DAILY RF: 0 Xarelto 20 mg tablet 1 tab PO DAILY RF: 0 glipizide 10 mg Tablet 10 mg PO BID RF: 0 Flomax tablet 0.4 mg PO BEDTIME RF: 0 Januvia 100 mg PO DAILY RF: 0 Lantus U-100 Insulin 100 unit/mL Solution 100 unit SUBCUT RF: 0 <TANK Manuel - Last Filed: 05/27/21 17:09>
[2021-05-27 09:31] LABS: Prothrombin Time 22.7 SEC (9.9-13.0)
[2021-05-27 09:43] LABS: Alanine Aminotransferase 15 U/L (0-40); Albumin Level 3.9 g/dL (3.5-5.0); Alkaline Phosphatase 59 U/L (39-117); Anion Gap 14 (12-20); Aspartate Amino Transferase 26 U/L (5-37); Bilirubin Total 0.8 mg/dL (0.0-1.0); Blood Urea Nitrogen 23 mg/dL (9-16); Calcium 9.5 mg/dL (8.4-10.2); Carbon Dioxide 25 mmol/L (22-29); Chloride 107 mmol/L (96-108); Creatinine Clr Calc Pharmacy 51.5; Estimated Glomerular Filt Rate 51; Glucose Random 108 mg/dL (60-115); Potassium 4.7 mmol/L (3.3-5.1); Sodium 141 mmol/L (135-145); Total Protein 6.4 g/dL (6.5-8.0)
[2021-05-27 09:50] LABS: B Type Natriuretic Peptide 73 pg/mL (<100); Troponin-I High Sensitivity 22.2 ng/L (<3.5-35.0)
[2021-05-27 10:11] LABS: Appearance Urine CLEAR; Color Urine YELLOW; Glucose Urine UA NEG (NEG); Leukocyte Esterase Urine NEG (NEG); Nitrite Urine NEG (NEG); PH 5.5 (5.0-8.0); Specific Gravity - Urine 1.025 (1.005-1.025); UACC Culture Trigger NO; Urine Blood 1+ (NEG); Urine Ketones NEG (NEG); Urine Protein NEG (NEG-TRACE)
[2021-05-27 10:12] LABS: SLIDE REVIEW VERIFIED
[2021-05-27 10:25] LABS: Mucus Urine TRACE /LPF; Squamous Epithelial Cell Urine TRACE /LPF; WBC Urine 0-2 /HPF (0-4)
[2021-05-27] MEDS: 0.9 % Sodium Chloride 1,000 ML 999 ML IV ×2 (10:53→11:29)
[2021-05-27 11:07] LABS: Lactic Acid 1.1 mmol/L (0.5-2.0)
[2021-05-27] MEDS: iohexoL 350 MG/ML 100 ML INFUS..BTL IV (12:05)
[2021-05-27 12:21] LABS: COVID-19 Test Negative (Negative)
[2021-05-27 13:06] LABS: Troponin-I High Sensitivity 24.7 ng/L (<3.5-35.0)
[2021-05-27] MEDS: Acetaminophen 325 MG TABLET 650 MG PO (16:39)
[2021-05-27] MEDS: atenoloL 25 MG TABLET PO (17:22)
[2021-05-27] MEDS: Gabapentin 100 MG CAPSULE PO ×2 (17:22→20:44)
[2021-05-27] MEDS: Donepezil HCl 10 MG TABLET PO (17:22)
[2021-05-27] MEDS: Fenofibrate 160 MG TABLET PO (17:23)
[2021-05-27] MEDS: Rivaroxaban 20 MG TABLET PO (17:23)
[2021-05-27] MEDS: Tamsulosin HCL 0.4 MG CAPSULE PO (20:44)
[2021-05-27] MEDS: glipiZIDE 10 MG TABLET PO (20:44)
[2021-05-28 02:00] VITALS: BP 116/47; PULSE 72; RESP 16; TEMP 36.4; O2SAT 96
[2021-05-28 06:15] VITALS: BP 108/60; PULSE 85; RESP 20
[2021-05-28 07:41] VITALS: BP 127/47; PULSE 68
[2021-05-28] MEDS: glipiZIDE 10 MG TABLET PO (07:41)
[2021-05-28] MEDS: Gabapentin 100 MG CAPSULE PO (07:41)
[2021-05-28] MEDS: Donepezil HCl 10 MG TABLET PO (07:41)
[2021-05-28] MEDS: SITagliptin Phosphate 100 MG TABLET PO (07:41)
[2021-05-28] MEDS: Fenofibrate 160 MG TABLET PO (07:41)
[2021-05-28] MEDS: atenoloL 25 MG TABLET PO (07:41)
[2021-05-28] MEDS: Rivaroxaban 20 MG TABLET PO (07:41)
[2021-05-28 08:00] VITALS: BP 127/47; PULSE 68; RESP 16
--- NOTE | 2021-05-28 08:00 | PC.NURSE ---
pt covered in leaking ostomy from head to toe. linen soiled. pt cleaned and ostomy care provided. bed changed and pt re positioned and assisted to use bedside urinal. medicated per emar.
[2021-05-28 09:10] VITALS: O2SAT 92
--- NOTE | 2021-05-28 09:54 | MHC.CM.ED ---
Received case management consult overnight. Patient came to the ER due to weakness. Patient found to be mildly dehydrated. IVF and rest provided. Physical therapy eval completed. Home therapy is recommended. Attempted to meet with patient. Patient currently sleeping. Spoke with patient's son, Mega, via telephone at [phone]. Patient lives with his at [facility] independent living, ambulates with a walker and had no services prior to coming to the ER. PCP verified. Patient has a HCP. Mega will try to obtain a copy. Mega agreeable to referral to [facility]. Referral made via [employer]. Mega will come to ER to transport patient home. Patient, Lety TAYLOR and Finn FU aware. Continue to monitor for d/c needs.
== END 2021-05-28 10:37 | disposition home or self-care (01) ==
PROVIDERS: Physician Assistant; Emergency Provider Emergency Medicine; PCP Family Medicine
DX: R53.1 Weakness (principal); I95.1 Orthostatic hypotension; Z20.822 Contact with and (suspected) exposure to COVID-19; Z91.81 History of falling
CPT/HCPCS: 36415; 51701; 70450; 71045; 72125; 73521; 73564; 74177; 80053; 81001; 82550; 83605; 83880; 84484; 85025; 85610; 85730; 87040; 87635; 93005; 96360; 97162; 99285; Q9967

== ENCOUNTER 2021-11-24 14:00 | Outpatient (RCR) | payer MEDICARE, SELFPAY | END 2021-12-21 13:10 | disposition home or self-care (01) | LOC: HO.PT 14:00 | PROVIDERS: PCP Family Medicine; Visit Provider Family Medicine | DX: H81.10 Benign paroxysmal vertigo, unspecified ear (principal); M25.561 Pain in right knee | CPT/HCPCS: 95992; 97110; 97112; 97163; 97530 ==

== ENCOUNTER 2021-12-08 13:45 | Emergency (ER) | payer MEDICARE, SELFPAY ==
--- NOTE | ~2021-12-08 | XR_ITS ---
EXAMINATION: XR RIBS, RIGHT CLINICAL INFORMATION: Fall with pain COMPARISON: Chest x-ray of May 27, 2021 TECHNIQUE: PA chest with 3 views of the right ribs. FINDINGS: There is no evidence of acute parenchymal disease, pneumothorax, or pleural effusion. Heart normal size. No evidence of pulmonary edema. There is degenerative marginal spurring seen throughout the thoracic spine. There is an essentially nondisplaced fracture seen involving the anterolateral aspect of the right 10th rib. There is question of some osteopenia involving regions of the ribs which may be related to osteoporosis. Infiltrative process cannot be excluded. XR/XR ribs RT min 3V w CXR1V IMPRESSION: No acute parenchymal disease within the chest. No evidence of pneumothorax or hemothorax. Fracture anterolateral aspect of the right 10th rib. Osteopenia visualized bones as described.
[2021-12-08 13:53] VITALS: BP 138/70; BP 162/68; PULSE 63; PULSE 68; RESP 20; TEMP 36.8; O2SAT 99; BMI 35.8
--- NOTE | 2021-12-08 14:03 | ED_ITS ---
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 Patient tells me he slipped while he was in the shower hitting his right ribs on the shower wall. He denies hitting his head. No loss of consciousness. Since the fall he has had right rib pain. No abdominal pain, no nausea, vomiting. No headache, neck pain, back pain, dizziness, vision changes. Related Data Home Medications Medication Instructions Recorded Confirmed Flomax 0.4 mg PO BEDTIME 05/27/21 05/27/21 Januvia 100 mg PO DAILY 05/27/21 05/27/21 atenolol 25 mg tablet 1 tab PO DAILY 05/27/21 05/27/21 donepezil 10 mg tablet 1 tab PO DAILY 05/27/21 05/27/21 fenofibrate 160 mg tablet 1 tab PO DAILY 05/27/21 05/27/21 gabapentin 100 mg capsule 1 cap PO TID 05/27/21 05/27/21 glipizide 10 mg tablet 10 mg PO BID 05/27/21 05/27/21 insulin glargine 100 unit/mL 100 unit subcut 05/27/21 subcutaneous solution (Lantus U-100 Insulin) rivaroxaban 20 mg tablet (Xarelto) 1 tab PO DAILY 05/27/21 05/27/21 Previous Rx's Medication Instructions Recorded oxycodone 5 mg tablet 5 mg PO Q8H PRN pain #8 tabs 12/08/21 Allergies Allergy/AdvReac Type Severity Reaction Status Date / Time No Known Allergies Allergy Unverified 03/19/20 18:26 Review of Systems Review of Systems: Yes all other systems are reviewed and are negative Constitutional: Constitutional: Reports no additional constitutional complaints, Denies body ache(s), Denies chills, Denies fever(s), Denies headache(s) and Denies weakness Eyes: Eyes: Reports no additional eye complaints and Denies change in vision ENT: Reports system reviewed and no additional complaints, except as documented, Denies dizziness, Denies headache(s), Denies nasal congestion, Denies nasal discharge and Denies neck pain Cardiovascular: Cardiovascular: Reports no additional cardiovascular complaints, Reports chest pain, Denies leg edema and Denies dyspnea Respiratory: Respiratory: Reports no additional respiratory complaints, Denies cough and Denies dyspnea Gastrointestinal: Gastrointestinal: Reports no additional gastrointestinal complaints, Denies abdominal pain, Denies diarrhea, Denies nausea and Denies vomiting Genitourinary: Genitourinary: Denies urinary incontinence Musculoskeletal: Musculoskeletal: Reports no additional musculoskeletal comp laints, Denies back pain, Denies arthralgias, Denies joint swelling, Denies neck pain, Denies numbness and Denies tingling Integumentary/Breasts: Skin/Breast: Reports system reviewed and no additional complaints, except as docu and Denies rash Neurologic: Reports system reviewed and no additional complaints, except as documented, Denies Abnormal speech present, Denies dizziness, Denies headache(s), Denies numbness, Denies tingling and Denies weakness PMFSH Past Medical History Attestation statement: The following information was validated with the patient. Source: old records reviewed and nursing notes reviewed Social History Social History Alcohol intake: never Patient Tobacco Use Status: Never used Tobacco Advance Directives: Yes Advance Directives Information Provided: No Advance Directives on File: No Physical Exam Vital Signs: Vital Signs: Last Vital Signs Temp 98.3 F 12/08/21 13:53 Pulse 68 12/08/21 13:53 Resp 20 12/08/21 13:53 BP 162/68 H 12/08/21 13:53 Pulse Ox 99 12/08/21 13:53 O2 Del Method 12/08/21 13:53 BMI result Body Mass Index 35.8 Const: General: cooperative, healthy appearing, comfortable and no acute distress Orientation/consciousness: patient oriented x3 Limitations: no limitations HEENT: Head: Yes normal to inspection Ears: hearing grossly normal bilaterally and TM's normal bilaterally General nose exam: Normal external nose present Face and sinus: Yes normal facial exam Mouth: Normal oral and palatal mucosa present Throat: Yes posterior oropharynx normal, Yes tonsils normal and Yes uvula midline Eyes: General: appearance normal, both eyes and all related structures Pupils: Equal, round and reactive pupils present Neck: Other: No cervical tenderness, step-offs deformities Neck: Yes normal visual inspection and Yes full ROM Chest: Other: Tenderness to the right lateral chest wall with no crepitus or ecchymosis. Chest palpation & inspection: normal inspection of the chest Resp: Effort & Inspection: normal respiratory effort Auscultation: clear to auscultation bilaterally Cardio: Rate: regular rate Rhythm: regular rhythm Peripheral pulses: Peripheral pulses 2+ throughout GI: Inspection: Yes normal to inspection Palpation (GI): Soft to palpation and nontender Auscultation: normal bowel sounds Back/Spine/Pelvis: Thoracic/Lumbar Spine: thoracic and lumbar spine normal to inspection Skin: General skin exam: no rashes or lesions noted Neuro: General: patient oriented x3, moves all extremities, no focal motor deficits and normal sensation to monofilament Cranial nerves: Yes CN's II-XII intact bilaterally, Yes Equal, round and reactive pupils present, Yes Bilaterally intact EOM present, Yes Nystagmus not present, Yes Normal facial strength present and Yes Midline tongue present Cognition (Neuro): normal cognition Speech: No Abnormal speech present Gait exam (Neuro): Normal gait present Motor exam (neuro): 5/5 motor strength present throughout Sensory Exam: Normal double simultaneous stimulation for sensation Extrem: General: Yes normal to inspection Course Course Course Narrative: 81-year-old male here with right chest wall pain after mechanical fall which occurred just prior to arrival. No head injury or loss of consciousness. Normal neuro exam. Will obtain x-ray of the right ribs and provide analgesia Reevaluation(s) Reevaluation #1: Chest x-ray shows a solitary rib fracture over the 10th rib which is nondisplaced. Patient has stable vital signs. No hypoxia. He was instructed how to use an incentive spirometer. He has no abdominal pain. No vomiting. No headache or reports of head injury. I reviewed with the patient that he should return should he developed the symptoms. He should also return for any shortness of breath, cough or fever. Reviewed worrisome signs and symptoms with the patient and his family. Comfortable plan for discharge home. Time: 15:30 MDM - Fall MDM Narrative Medical decision making narrative: Contusion, fracture Medical Records Attestation: I reviewed the patient's medical records. Lab Data Attestation: I reviewed the patient's lab results. Imaging Data Chest x-ray: Attestation: I personally reviewed and interpreted this imaging study as follows: Radiologist's impression: [address] [address] XRay Report Signed Patient: Kevin Pena MR#: [id number] : 1940 Acct:[id number] Age/Sex: 81 / M ADM Date: 12/08/21 Loc: HO.ED Attending Dr: Ordering Physician: Mary Jo Miles NP Date of Service: 12/08/21 Procedure(s): XR ribs RT min 3V w CXR1V Accession Number(s): [id number] cc: Mary Jo Miles NP~ EXAMINATION: XR RIBS, RIGHT CLINICAL INFORMATION: Fall with pain COMPARISON: Chest x-ray of May 27, 2021 TECHNIQUE: PA chest with 3 views of the right ribs. FINDINGS: There is no evidence of acute parenchymal disease, pneumothorax, or pleural effusion. Heart normal size. No evidence of pulmonary edema. There is degenerative marginal spurring seen throughout the thoracic spine. There is an essentially nondisplaced fracture seen involving the anterolateral aspect of the right 10th rib. There is question of some osteopenia involving regions of the ribs which may be related to osteoporosis. Infiltrative process cannot be excluded. XR/XR ribs RT min 3V w CXR1V IMPRESSION: No acute parenchymal disease within the chest. No evidence of pneumothorax or hemothorax. ? Fracture anterolateral aspect of the right 10th rib. ? Osteopenia visualized bones as described. ? ? ? Discharge Plan Discharge Clinical Impression: Closed rib fracture Patient Disposition: Home, Self-Care Instructions: Rib Fracture (ED) Additional Instructions: Use incentive spirometer 10 times a day Tylenol several times a day for pain Only takes oxycodone as needed Return for severe pain, difficulty breathing, cough, fever Prescriptions: New oxycodone 5 mg tablet 5 mg PO Q8H PRN (Reason: pain) Qty: 8 0RF Rx Instructions: Partial Fill upon patient request. No Action donepezil 10 mg tablet 1 tab PO DAILY atenolol 25 mg tablet 1 tab PO DAILY gabapentin 100 mg capsule 1 cap PO TID fenofibrate 160 mg tablet 1 tab PO DAILY Xarelto 20 mg tablet 1 tab PO DAILY glipizide 10 mg Tablet 10 mg PO BID Flomax tablet 0.4 mg PO BEDTIME Januvia 100 mg PO DAILY Lantus U-100 Insulin 100 unit/mL Solution 100 unit SUBCUT Referrals: Shahid Reno MD [Primary Care Provider] - 1 week
[2021-12-08] MEDS: oxyCODONE HCl Immed Release 5 MG TABLET PO (14:17)
[2021-12-08] MEDS: Acetaminophen 325 MG TABLET 975 MG PO (14:17)
== END 2021-12-08 15:48 | disposition home or self-care (01) ==
PROVIDERS: Emergency Provider Emergency Medicine; PCP Family Medicine
DX: S22.31XA Fracture of one rib, right side, initial encounter for closed fracture (principal); W18.2XXA Fall in (into) shower or empty bathtub, initial encounter; Y93.E1 Activity, personal bathing and showering; Y92.031 Bathroom in apartment as the place of occurrence of the external cause; Y99.9 Unspecified external cause status
CPT/HCPCS: 71101; 99283

== ENCOUNTER 2022-10-20 09:23 | Emergency (ER) | payer MEDICARE, SELFPAY ==
--- NOTE | ~2022-10-20 | CT_ITS ---
EXAMINATION: CT HEAD W/O IV CONTRAST CT CERVICAL SPINE W/O IV CONTRAST CLINICAL INFORMATION: Unwitnessed fall. Patient on blood thinner. Possible head and neck injury. COMPARISON: 05/27/2021 TECHNIQUE: Head - Contiguous axial imaging of the head was performed from the skull base to the vertex without the administration of intravenous contrast, and axial images are reconstructed at 2 mm and 5 mm slice thickness. Cervical spine - A volumetric, helical CT acquisition of the cervical spine was obtained without contrast; in addition to the standard set of axial images, multiplanar reformatted images were provided in the coronal and sagittal imaging planes. This CT examination was performed using dose optimization techniques as appropriate, variously including the following: *Automated exposure control *Adjustment of mA and/or kV according to patient size (this includes techniques or standardized protocols for targeted exams where dose is matched to indication/reason for exam; i.e. extremities or head) *Use of iterative reconstruction technique DLP: 1358 mGy-cm (total) FINDINGS: HEAD: There is mild amount of hyperdense subarachnoid hemorrhage overlying right cerebral hemisphere in region of right central and precentral sulcus. Atherosclerotic calcification of vertebral and cavernous carotid arteries. Chronic patchy hypoattenuation within the supratentorial white matter is compatible with sequela of moderate microangiopathy. 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 The ramírez-white matter differentiation is maintained. No evidence of an acute major vascular territory infarction. Chronic [id number] parenchymal volume loss with commensurate prominence of ventricles and sulci; no hydrocephalus. The brainstem and cerebellum are unremarkable. No evidence of calvarial fracture. The visualized paranasal sinuses and mastoid air cells are well aerated. Temporomandibular joints and orbits are unremarkable. CERVICAL SPINE: No acute abnormality compared to 05/27/2021. There is chronic lack of lordotic curvature of the degenerated cervical spine. The craniocervical junction is normal. The occipital condyles, dens and atlantodental articulation are intact. The vertebral body heights are maintained. Chronic multilevel facet osteoarthritis and degenerative disc disease. Chronic mild degenerative anterolisthesis at C3-C4 and C4-C5. There is right-sided facet joint ankylosis at C4-C5. Mild spinal canal stenosis at C4-C5, C5-C6 and C6-C7. There are varying degrees of chronic multilevel bilateral neural foraminal stenosis. No acute fracture or traumatic subluxation. No prevertebral edema or soft tissue hematoma. Lung apices are unremarkable. The visualized portion of the thyroid gland is normal. CT/CT cervical spine wo IV con IMPRESSION: * There is acute subarachnoid hemorrhage in the right perirolandic region. Otherwise, no acute intracranial pathology compared to prior head CT from 05/27/2021. * No fracture or traumatic subluxation in the chronically degenerated cervical spine. The critical test result was discussed with Dr. Lovett at 11:23 AM on 10/20/2022 was ascertained that the content and the importance of the findings was understood at the time of the direct communication.
--- NOTE | ~2022-10-20 | XR_ITS ---
EXAMINATION: XR CHEST CLINICAL INFORMATION: Unwitnessed fall COMPARISON: 12/08/2021 TECHNIQUE: Frontal view of the chest was obtained. FINDINGS: Cardiac leads overlie the chest. The lungs are well expanded. There is no focal consolidation, edema, or effusion. No pneumothorax. The cardiomediastinal silhouette is within normal limits of size with a calcified aorta. No acute osseous abnormality. Degenerative changes throughout the spine. Degenerative change at both shoulders.. Chronic appearing right lateral healed rib fractures. XR/XR chest 1V IMPRESSION: No acute pulmonary disease. No displaced fractures are seen.
[2022-10-20 09:24] VITALS: BP 124/58; BP 128/80; PULSE 73; PULSE 74; RESP 14; O2SAT 94; O2SAT 98; BMI 34.5
--- NOTE | 2022-10-20 09:37 | ECG_ITS ---
Test Reason : fall possible syncope Blood Pressure : / mmHG Vent. Rate : 060 BPM Atrial Rate : 060 BPM P-R Int : 220 ms QRS Dur : 144 ms QT Int : 452 ms P-R-T Axes : 086 059 034 degrees QTc Int : 452 ms Sinus rhythm with 1st degree A-V block Right bundle branch block Abnormal ECG When compared with ECG of 27-MAY-2021 09:03, No significant changes seen Referred By: Nima Lovett Electronically Signed By:YOSELIN BAIRES
--- NOTE | 2022-10-20 09:41 | ED.GENADULT ---
HPI - General Adult General Chief complaint: Fall Stated complaint: UNWIT FALL IN BR,EVENT/UNK,NECK PAIN/+CCOLLAR Time Seen by Provider: 10/20/22 09:33 Source: patient Mode of arrival: ambulatory Limitations: no limitations History of Present Illness HPI narrative: 81-year-old male presents after an unwitnessed fall. Patient was found in the bathroom pain behind the door. He does not remember falling. He does not know if he hit his head. Denies any pain such as headache, chest pain, shortness breath, palpitations, lightheadedness. Denies any pelvic pain or hip pain. Patient is on blood thinning medications. There are no clear relieving or exacerbating features. Symptoms are described as moderate to severe. It was unable to get himself up. Patient appears to be at his baseline mental status. Related Data Home Medications Medication Instructions Recorded Confirmed atenolol 25 mg tablet 1 tab PO DAILY 05/27/21 10/20/22 donepezil 10 mg tablet 1 tab PO BEDTIME 05/27/21 10/20/22 gabapentin 100 mg capsule 1 cap PO TID 05/27/21 10/20/22 insulin glargine 100 unit/mL 30 unit subcut DAILY 05/27/21 10/20/22 subcutaneous solution (Lantus U-100 Insulin) rivaroxaban 20 mg tablet (Xarelto) 1 tab PO DAILY@1700 05/27/21 10/20/22 atorvastatin 40 mg tablet 40 mg PO BEDTIME 10/20/22 10/20/22 sitagliptin phosphate 100 mg 100 mg PO DAILY 10/20/22 10/20/22 tablet (Januvia) venlafaxine 150 mg 150 mg PO DAILY 10/20/22 10/20/22 capsule,extended release 24 hr Allergies Allergy/AdvReac Type Severity Reaction Status Date / Time No Known Allergies Allergy Verified 10/20/22 09:37 [facility] Social History Social History Alcohol intake: never Patient Tobacco Use Status: Never used Tobacco Advance Directives: No Physical Exam ED Vital Signs: Vital Signs - 24 hr 10/20/22 09:24 10/20/22 10:53 Temperature 95.8 F L Pulse Rate 74 64 Respiratory Rate 14 10 L Blood Pressure 124/58 L 141/62 H Pulse Oximetry 98 99 Oxygen Delivery Method Room Air Room Air BMI result Body Mass Index 34.5 GEN: Well developed, no acute distress, alert, oriented HEENT: Normocephalic, atraumatic, normal external ears, nose appears normal, no oropharyngeal edema or exudates Eyes: Normal to appearance Neck: c collar, no midline tenderness Respiratory: Talks in complete sentences, no respiratory distress, clear to auscultation bilaterally Cardiovascular: Regular rate and rhythm, 2/6 systolic blowing murmur Abdomen: Soft, nontender, nondistended, no guarding, no rebound Back: No CVA tenderness Extremities: No clubbing cyanosis or edema Neurologic: No focal neurologic deficits, cranial nerves 2-12 intact, strength is 5/5 bilaterally Skin: No rash Course Course Course Narrative: 81-year-old male presents with an unwitnessed fall. There is no evidence of traumatic injury however, patient is on blood thinning medications will scan head and cervical spine. Will obtain chest x-ray. There is no pelvic or hip tenderness. There is no external rotation or shortening of the lower extremity. Abdomen is soft and nontender. He does have a systolic murmur. Will place patient on a monitor tech, EKG, laboratory analysis. Would consider admitting patient for possible syncope. Reevaluation(s) Reevaluation #1: I discussed off the phone with Radiology. They are identifying a subarachnoid hemorrhage in the right parietal area. He is on Xarelto. Last dose was last night. Did not take a dose this morning. I was able to remove his C-collar based on verbal report from Radiology. Time: 11:30 Reevaluation #2: Has been approximately 15-20 minutes bedside discussing transfer, all results with patient in the family. They are aware of her recent for transfer to [facility]. They are aware that this represents a higher level of care with the trauma team. I spoke with the emergency attending Dr. Herminio Parmar who accepted the patient to the ED. Time: 12:36 Consultations Consultation #1: Contacting [facility] for traumatic bleedon Xarelto Time: 11:37 Medical Decision Making Medical Decision Making MDM Narrative: 81-year-old male presents with an unwitnessed fall. There is no evidence of traumatic injury however, patient is on blood thinning medications will scan head and cervical spine. Will obtain chest x-ray. There is no pelvic or hip tenderness. There is no external rotation or shortening of the lower extremity. Abdomen is soft and nontender. He does have a systolic murmur. Will place patient on a monitor tech, EKG, laboratory analysis. Would consider admitting patient for possible syncope. Differential Diagnosis Differential Diagnoses: The differential diagnosis associated with the presentation includes (Fall, syncope, anemia, electrolyte abnormality, cardiac dysrhythmia) Admission/Observation Consideration of admission/observation: Escalation of care including admission/observation considered Lab Data MDM Lab Attestation statement: I reviewed the patient's lab results. 10/20/22 09:59 10/20/22 11:05 Labs: Lab Results 10/20/22 10/20/22 10/20/22 Range/Units 09:59 09:59 10:47 WBC 8.5 (4.8-10.8) X10*3/uL RBC 4.13 L (4.60-5.80) X10*6/uL Hgb 13.3 L (14.0-18.0) g/dl Hct 39.7 L (42.0-52.0) % MCV 96.1 (80.0-98.0) fL MCH 32.2 (27.0-33.0) pg MCHC 33.5 (31.0-36.0) g/dl RDW 13.2 (11.0-16.0) % Plt Count 148 L (160-400) X10*3/uL MPV 9.7 (9.4-12.4) fL Immature Gran % (Auto) 0.6 H (0.0-0.4) % Neut % (Auto) 84.2 H (45-73) % Lymph % (Auto) 10.0 L (20-40) % Lynn % (Auto) 4.1 (2-11) % Eos % (Auto) 0.7 (0-4) % Baso % (Auto) 0.4 (0-2) % Lymph # (Auto) 0.9 L (1.2-4.9) X10*3/uL Lynn # (Auto) 0.4 (0.1-1.2) X10*3/uL Eos # (Auto) 0.1 (0.0-0.4) X10*3/uL Baso # (Auto) 0.0 (0.0-0.2) X10*3/uL Abs Immat Gran (auto) 0.05 H (0.00-0.03) X10*3/uL Absolute Neuts (auto) 7.2 (2.0-8.3) x10*3/uL Absolute Nucleated RBC 0.000 (0.0-0.012) X10*3/uL Nucleated RBC % (auto) 0.0 (0.0-0.2) /100WBC Troponin I High Sens 22.4 (<3.5-35.0) ng/L Urine Color Yellow Urine Appearance Clear Urine pH 5.5 (5.0-9.0) Ur Specific [place] >= 1.030 H (1.005-1.025) Urine Protein 30 (1+) H (Neg-Trace) mg/dL Urine Glucose (UA) 500 H (Negative) mg/dL Urine Ketones Negative (Negative) mg/dL Urine Blood Small (1+) H (Negative) Urine Nitrite Negative (Negative) Ur Leukocyte Esterase Negative (Negative) Urine RBC 0-2 (0-2) /HPF Urine WBC 0-5 (0-5) /HPF Ur Squamous Epith Cells 0-2 (0-2) /HPF Urine Bacteria None Seen (None Seen) Hyaline Casts 0-2 (0-2) /LPF COVID-19 (MARTHA) (Negative) COVID-19 Clin Com 10/20/22 Range/Units 11:46 WBC (4.8-10.8) X10*3/uL RBC (4.60-5.80) X10*6/uL Hgb (14.0-18.0) g/dl Hct (42.0-52.0) % MCV (80.0-98.0) fL MCH (27.0-33.0) pg MCHC (31.0-36.0) g/dl RDW (11.0-16.0) % Plt Count (160-400) X10*3/uL MPV (9.4-12.4) fL Immature Gran % (Auto) (0.0-0.4) % Neut % (Auto) (45-73) % Lymph % (Auto) (20-40) % Lynn % (Auto) (2-11) % Eos % (Auto) (0-4) % Baso % (Auto) (0-2) % Lymph # (Auto) (1.2-4.9) X10*3/uL Lynn # (Auto) (0.1-1.2) X10*3/uL Eos # (Auto) (0.0-0.4) X10*3/uL Baso # (Auto) (0.0-0.2) X10*3/uL Abs Immat Gran (auto) (0.00-0.03) X10*3/uL Absolute Neuts (auto) (2.0-8.3) x10*3/uL Absolute Nucleated RBC (0.0-0.012) X10*3/uL Nucleated RBC % (auto) (0.0-0.2) /100WBC Troponin I High Sens (<3.5-35.0) ng/L Urine Color Urine Appearance Urine pH (5.0-9.0) Ur Specific [place] (1.005-1.025) Urine Protein (Neg-Trace) mg/dL Urine Glucose (UA) (Negative) mg/dL Urine Ketones (Negative) mg/dL Urine Blood (Negative) Urine Nitrite (Negative) Ur Leukocyte Esterase (Negative) Urine RBC (0-2) /HPF Urine WBC (0-5) /HPF Ur Squamous Epith Cells (0-2) /HPF Urine Bacteria (None Seen) Hyaline Casts (0-2) /LPF COVID-19 (MARTHA) Negative (Negative) COVID-19 Clin Com See Note Independent Interpretation I performed an independent interpretation of an: EKG (Normal sinus rhythm heart rate 60, first-degree AV block, right bundle branch block, no acute ST elevations or depressions), Plain X-Ray and CT Scan (Hyperattenuation in the right parietal area consistent with intracranial bleeding) Radiology Impression Discussion of test interpretation with radiology: I have reviewed the radiologist's reading. ( CT/CT head/brain wo IV con IMPRESSION: * There is acute subarachnoid hemorrhage in the right perirolandic region. Otherwise, no acute intracranial pathology compared to prior head CT from 05/27/2021. * No fracture or traumatic subluxation in the chronically degenerated cervical ) Independent Historian Clinical information obtained from an independent historian. History obtained from or confirmed by: Other (Son) Chronic Conditions Patient?s care impacted by: Diabetes Critical Care Time Critical Care Time Critical Care Time: Yes Total Critical Care Time: 45 Attestation: Critical care time in the amount of approximately 45 minutes was perform with bedside care, conversation with family and patient, interpretation and medical data, consultation with outside hospital providers, arranging transfer patient to higher level of care. Discharge Plan Discharge Clinical Impression: Unwitnessed fall, Subarachnoid hemorrhage Patient Disposition: [facility] Hospital Transfer Details: [facility] Emergency Department Prescriptions: No Action donepezil 10 mg tablet 1 tab PO BEDTIME atenolol 25 mg tablet 1 tab PO DAILY gabapentin 100 mg capsule 1 cap PO TID Xarelto 20 mg tablet 1 tab PO DAILY@1700 insulin glargine [Lantus U-100 Insulin] 100 unit/mL Solution 30 unit SUBCUT DAILY atorvastatin 40 mg tablet 40 mg PO BEDTIME Januvia 100 mg tablet 100 mg PO DAILY venlafaxine 150 mg capsule,extended release 24hr 150 mg PO DAILY
--- NOTE | 2022-10-20 10:06 | PC.NURSE ---
Pt arrived via EMS, in C-Collar, fall in bathroom this morning, denies pain, numbness or tingling. Son at bedside, awaiting results
[2022-10-20 10:08] LABS: MANUAL DIFF FLAG NO
[2022-10-20 10:11] LABS: Basophils Percent Auto 0.4 % (0-2); Eosinophils Absolute Auto 0.1 X10*3/uL (0.0-0.4); Eosinophils Percent Auto 0.7 % (0-4); Hematocrit 39.7 % (42.0-52.0); Hemoglobin 13.3 g/dl (14.0-18.0); Imm Gran Abs Auto 0.05 X10*3/uL (0.00-0.03); Imm Gran Pct Auto 0.6 % (0.0-0.4); Lymphocytes Absolute Auto 0.9 X10*3/uL (1.2-4.9); Mean Corpuscular HGB Conc 33.5 g/dl (31.0-36.0); Mean Corpuscular Hemoglobin 32.2 pg (27.0-33.0); Mean Corpuscular Volume 96.1 fL (80.0-98.0); Mean Platelet Volume 9.7 fL (9.4-12.4); Monocytes Absolute Auto 0.4 X10*3/uL (0.1-1.2); Monocytes Percent Auto 4.1 % (2-11); Neutrophils Absolute Auto 7.2 x10*3/uL (2.0-8.3); Neutrophils Percent Auto 84.2 % (45-73); Platelet Count 148 X10*3/uL (160-400); Red Blood Count 4.13 X10*6/uL (4.60-5.80); Red Cell Distribution Width 13.2 % (11.0-16.0); White Blood Count 8.5 X10*3/uL (4.8-10.8)
[2022-10-20 10:32] LABS: Troponin-I High Sensitivity 22.4 ng/L (<3.5-35.0)
[2022-10-20 10:53] VITALS: BP 141/62; PULSE 64; RESP 10; TEMP 35.4; O2SAT 99
[2022-10-20 11:08] LABS: Appearance Urine Clear; Color Urine Yellow; Glucose Urine UA 500 mg/dL (Negative); Leukocyte Esterase Urine Negative (Negative); Nitrite Urine Negative (Negative); PH 5.5 (5.0-9.0); Specific Gravity - Urine >= 1.030 (1.005-1.025); UMIC TRIGGER UACC YES; Urine Blood Small (1+) (Negative); Urine Ketones Negative (Negative); Urine Protein 30 (1+) mg/dL (Neg-Trace)
[2022-10-20 11:17] LABS: Bacteria Urine None Seen (None Seen); Hyaline Casts Urine 0-2 /LPF (0-2); RBC Urine 0-2 /HPF (0-2); Squamous Epithelial Cell Urine 0-2 /HPF (0-2); WBC Urine 0-5 /HPF (0-5)
--- NOTE | 2022-10-20 11:23 | PHA.MEDREC ---
Pharmacy Consult ? Medication Reconciliation Pharmacy has completed the medication reconciliation. Patient has not been taking lantus for a while now secondary to not having pen needles (prefers the vials anyway). He knew most of the meds, but got some from [facility]. I called [facility] mail order that gave me a complete list of medications. Patient states he is not on flomax. Kamron
[2022-10-20 12:15] LABS: COVID-19 Test Negative (Negative); IDNOW Serial# 55D5AD1C
--- NOTE | 2022-10-20 13:06 | PC.NURSE ---
Report given to EMS, family at bedside, patient to be transferred to [facility] ED. Report called to ED for nurse to nurse. Pt was a/ox4 when he left, and was in agreement with current plan.
[2022-10-20 14:45] LABS: Anion Gap 15 (12-20); Blood Urea Nitrogen 16 mg/dL (9-16); Calcium 9.4 mg/dL (8.4-10.2); Carbon Dioxide 24 mmol/L (22-29); Chloride 104 mmol/L (96-108); Creatinine Clr Calc Pharmacy 57.6; Estimated Glomerular Filt Rate > 60; Glucose Random 286 mg/dL (60-115); Potassium 4.5 mmol/L (3.3-5.1); Sodium 138 mmol/L (135-145)
== END 2022-10-20 19:49 | disposition short-term general hospital (02) ==
PROVIDERS: Emergency Provider Emergency Medicine; PCP Family Medicine
DX: S06.6XAA Traumatic subarachnoid hemorrhage with loss of consciousness status unknown, initial encounter (principal); W19.XXXA Unspecified fall, initial encounter; R01.1 Cardiac murmur, unspecified; Z20.822 Contact with and (suspected) exposure to COVID-19; E11.9 Type 2 diabetes mellitus without complications; Z79.01 Long term (current) use of anticoagulants; Z79.4 Long term (current) use of insulin; Z79.02 Long term (current) use of antithrombotics/antiplatelets; Z79.899 Other long term (current) drug therapy; Y93.89 Activity, other specified; Y92.121 Bathroom in nursing home as the place of occurrence of the external cause; Y99.9 Unspecified external cause status
CPT/HCPCS: 36415; 70450; 71045; 72125; 80048; 81001; 81003; 82550; 84484; 85025; 87635; 93005; 99284; 99285

== ENCOUNTER 2022-12-11 10:44 | Emergency (ER) | payer MEDICARE, SELFPAY ==
--- NOTE | ~2022-12-11 | XR_ITS ---
EXAMINATION: XR CHEST CLINICAL INFORMATION: Shortness of breath. COMPARISON: 10/20/2022 chest radiograph. TECHNIQUE: Frontal view of the chest was obtained. FINDINGS: The lungs are clear. Old healed right rib fractures are noted. The heart and mediastinal structures are unremarkable. Bilateral shoulder degenerative joint changes. XR/XR chest 1V IMPRESSION: No acute cardiopulmonary process.
--- NOTE | ~2022-12-11 | CT_ITS ---
EXAMINATION: CT HEAD WITHOUT CONTRAST (STROKE PROTOCOL) CLINICAL INFORMATION: Stroke protocol. Left upper extremity weakness. COMPARISON: 10/20/[address] scan. TECHNIQUE: Contiguous axial imaging was performed from the skull base to vertex without intravenous administration of contrast. Coronal and sagittal reformatted images were obtained. This CT examination was performed using dose optimization techniques as appropriate, variously including the following: *Automated exposure control *Adjustment of mA and/or kV according to patient size (this includes techniques or standardized protocols for targeted exams where dose is matched to indication/reason for exam; i.e. extremities or head) *Use of iterative reconstruction technique DLP: 830 mGy-cm FINDINGS: There is mild widening of the cortical sulci and associated ventriculomegaly. The lateral ventricles are symmetrical. The third and fourth ventricles are in their normal midline position. The basilar and prepontine cisterns are unremarkable. Mild periventricular microvascular changes are seen. There is no acute intra or extracerebral abnormality. There is no mass effect or midline shift. Sections through the bony calvarium are unremarkable. The orbits are intact. The paranasal sinuses are clear. The mastoid air cells are clear. CT/CT head for stroke IMPRESSION: No acute intracranial pathology. This critical result was discussed with Jess FU at 12:25 PM hours on 12/11/2022. It was ascertained that the content and urgency of the report was understood at the time of direct communication.
[2022-12-11 10:49] VITALS: BP 110/56; PULSE 66; RESP 16; TEMP 36.4; O2SAT 94
--- NOTE | 2022-12-11 10:55 | ECG_ITS ---
Test Reason : WEAKNESS Blood Pressure : / mmHG Vent. Rate : 065 BPM Atrial Rate : 065 BPM P-R Int : 210 ms QRS Dur : 146 ms QT Int : 458 ms P-R-T Axes : 100 050 066 degrees QTc Int : 476 ms Sinus rhythm with 1st degree A-V block Right bundle branch block Cannot rule out Inferior infarct , age undetermined Abnormal ECG When compared with ECG of 20-OCT-2022 09:50, Minimal criteria for Inferior infarct are now Present T wave inversion now evident in Anterior leads Referred By: Bree Valenzuela Electronically Signed By:[place]
[2022-12-11 10:59] VITALS: BP 110/56; PULSE 65; RESP 16; TEMP 36.4; O2SAT 95; BMI 34.5
[2022-12-11 11:02] VITALS: BP 142/78; PULSE 56; O2SAT 100
[2022-12-11 11:21] LABS: MANUAL DIFF FLAG NO
[2022-12-11 11:39] LABS: Lactic Acid 1.5 mmol/L (0.5-2.0)
[2022-12-11 11:43] LABS: Alanine Aminotransferase 19 U/L (0-40); Albumin Level 4.2 g/dL (3.5-5.0); Alkaline Phosphatase 65 U/L (39-117); Anion Gap 16 (12-20); Aspartate Amino Transferase 20 U/L (5-37); Bilirubin Total 1.9 mg/dL (0.0-1.0); Blood Urea Nitrogen 41 mg/dL (9-16); Carbon Dioxide 23 mmol/L (22-29); Chloride 105 mmol/L (96-108); Creatinine Clr Calc Pharmacy 39.7; Estimated Glomerular Filt Rate 41; Glucose Random 134 mg/dL (60-115); Magnesium 1.9 mg/dL (1.6-2.6); Potassium 4.2 mmol/L (3.3-5.1); Sodium 140 mmol/L (135-145); Total Protein 7.1 g/dL (6.5-8.0)
[2022-12-11 11:47] LABS: Basophils Percent Auto 0.4 % (0-2); Eosinophils Absolute Auto 0.1 X10*3/uL (0.0-0.4); Eosinophils Percent Auto 0.6 % (0-4); Hematocrit 40.5 % (42.0-52.0); Hemoglobin 13.4 g/dl (14.0-18.0); Imm Gran Abs Auto 0.04 X10*3/uL (0.00-0.03); Imm Gran Pct Auto 0.4 % (0.0-0.4); Lymphocytes Absolute Auto 1.6 X10*3/uL (1.2-4.9); Lymphocytes Percent Auto 16.3 % (20-40); Mean Corpuscular HGB Conc 33.1 g/dl (31.0-36.0); Mean Corpuscular Hemoglobin 32.1 pg (27.0-33.0); Mean Corpuscular Volume 96.9 fL (80.0-98.0); Mean Platelet Volume 9.3 fL (9.4-12.4); Monocytes Absolute Auto 0.7 X10*3/uL (0.1-1.2); Monocytes Percent Auto 7.4 % (2-11); Neutrophils Absolute Auto 7.3 x10*3/uL (2.0-8.3); Neutrophils Percent Auto 74.9 % (45-73); Platelet Count 220 X10*3/uL (160-400); Red Blood Count 4.18 X10*6/uL (4.60-5.80); Red Cell Distribution Width 13.2 % (11.0-16.0); White Blood Count 9.8 X10*3/uL (4.8-10.8)
[2022-12-11 11:51] LABS: Troponin-I High Sensitivity 17.5 ng/L (<3.5-35.0)
[2022-12-11 12:09] LABS: COVID-19 Test Negative (Negative); IDNOW Serial# 6674DD1D
--- NOTE | 2022-12-11 12:30 | ED.GENADULT ---
HPI - General Adult General Chief complaint: Weakness Stated complaint: Increased weakness, from SNF per EMS Time Seen by Provider: 12/11/22 10:47 Source: patient and family Mode of arrival: EMS Limitations: no limitations History of Present Illness HPI narrative: This is an 82-year-old male history of DVTs on Xarelto, cardiac stents, recently with a hematoma head presenting to the emergency department with fatigue, malaise, weakness, shortness of breath with exertion worsening over the past few days however worse this morning. According to patient's son who is here at the bedside this morning patient had a difficult time ambulating about 8 ft, he became very short of breath, and experience labored breathing. Also noted that approximately 930 this morning patient had some left upper extremity weakness and difficulty walking which has since resolved. Patient is anticoagulated on Xarelto and med compliant. Patient endorses shortness of breath only with exertion not at rest. Denies chest pain, fevers, chills, nausea, vomiting, abdominal pain, headache, vision changes, dizziness and weakness. On arrival NIH stroke scale is 0. Related Data Home Medications Medication Instructions Recorded Confirmed atenolol 25 mg tablet 1 tab PO DAILY 05/27/21 10/20/22 donepezil 10 mg tablet 1 tab PO BEDTIME 05/27/21 10/20/22 gabapentin 100 mg capsule 1 cap PO TID 05/27/21 10/20/22 insulin glargine 100 unit/mL 30 unit subcut DAILY 05/27/21 10/20/22 subcutaneous solution (Lantus U-100 Insulin) rivaroxaban 20 mg tablet (Xarelto) 1 tab PO DAILY@1700 05/27/21 10/20/22 atorvastatin 40 mg tablet 40 mg PO BEDTIME 10/20/22 10/20/22 sitagliptin phosphate 100 mg 100 mg PO DAILY 10/20/22 10/20/22 tablet (Januvia) venlafaxine 150 mg 150 mg PO DAILY 10/20/22 10/20/22 capsule,extended release 24 hr Allergies Allergy/AdvReac Type Severity Reaction Status Date / Time No Known Allergies Allergy Verified 10/20/22 09:37 Review of Systems Review of Systems: Constitutional : No Weight loss, No Fever, No Chills, + Fatigue, + Malaise ENT/Mouth : No sore throat, No Rhinorrhea Eyes: No Eye Pain, No Swelling, No Redness Cardiovascular : No Chest Pain, No SOB, No Dyspnea on Exertion, No Orthopnea, No Edema, No Palpitations Respiratory : No Cough, No Sputum, No Wheezing Gastrointestinal : No Nausea, No Vomiting, No Diarrhea, No Constipation, No abdominal Pain, No Hematochezia, No Melena Genitourinary : No Dysuria, No Urinary Frequency, No Hematuria, Musculoskeletal : No joint pain, No Myalgias, No Joint Swelling Skin : No Skin Lesions, No rash Neuro : + Weakness, No Numbness, No Dizziness, No Headache Psych : No Anxiety/Panic, No Depression All other systems reviewed and are negative Yes all other systems are reviewed and are negative [facility] Past Medical History Attestation statement: The following information was validated with the patient. Source: old records reviewed and nursing notes reviewed Social History Social History Alcohol intake: never Patient Tobacco Use Status: Never used Tobacco Smoked in Last 30 Days: No Advance Directives: No Physical Exam ED Vital Signs: Vital Signs - 24 hr 12/11/22 10:49 12/11/22 10:59 Temperature 97.6 F 97.6 F Pulse Rate 66 65 Respiratory Rate 16 16 Blood Pressure 110/56 L 110/56 L Pulse Oximetry 94 95 Oxygen Delivery Method Room Air Room Air BMI result Body Mass Index 34.5 Vital signs stable Appearance: Alert.? Oriented X3.? No acute distress.? Head: Normocephalic, atraumatic, no step-offs or deformities Eyes: Pupils equal, round and reactive to light.? CVS: Normal heart rate and rhythm.? Pulses normal.? Respiratory: No respiratory distress.? Breath sounds normal.? Abdomen: Soft and nontender.? Skin: Skin warm and dry.? Normal skin color.? Normal skin turgor.? Extremities: No lower extremity edema.? No calf ttp. 5/5 strength to bilateral upper and lower extremities Neuro: Oriented X 3.? No motor deficit.? No sensory deficit. CN 2-12 intact . Normal [id number], negative Romberg and pronator drift. Normal hand toggler bilaterally. NIH stroke scale 0. Course Reevaluation(s) Reevaluation #1: CBC appears to be around patient's baseline with normocytic anemia. Patient's chemistry with slight MARIAN, will give IV fluids at this time. Lactic acid within normal limits. Total bilirubin 1.9 however there is no abdominal tenderness to palpation on exam no need for the further imaging at this time with patient without abdominal pain. Patient's initial troponin 17.5, EKG showing ST elevations in lead 3, however these appear to be old, also noted to have first-degree AV block and right bundle-branch block, similar to previous EKGs I do not suspect acute ischemia at this time. BNP is pending. Low suspicion for PE as patient is med compliant and anticoagulated. Chest x-ray no acute finding. Head CT no sign of stroke. Time: 13:00 Reevaluation #2: Second troponin flat, unlikely that this is ACS, BNP within normal limits. Kidney function improved, patient's son did state that he was eating and drinking less than usual, likely some dehydration involved. Patient is not feeling short of breath in states he feels well just weak. As stated previously he is anticoagulated therefore low suspicion for PE. UA without infection. Spoke to patient's son who does not feel comfortable taking patient home due to increasing weakness, and he lives at home. For this reason patient will be placed into observation to allow more time to be evaluated by physical therapy and case management. At time observation was started patient has neuro nonfocal. Time: 15:29 Medications Administered Discontinued Medications Generic Name Dose Route Start Last Admin Trade Name Freq PRN Reason Stop Dose Admin Sodium Chloride 1,000 mls @ 999 mls/hr 12/11/22 12:30 12/11/22 13:56 Ns IV 12/11/22 13:30 Infused .Q1H1M [facility] Infusion Medical Decision Making Medical Decision Making [facility] Narrative: 1232 82-year-old male presents with physical deconditioning, fatigue, malaise, dyspnea on exertion. Physical examination benign. NIH stroke scale 0. Cerebellar intact. Abdomen soft nontender nondistended. Breath sounds clear bilaterally. Regular rate and rhythm. Vital signs stable. Concerns for possible electrolyte abnormalities, CHF, unlikely pneumonia, PE, ACS, dissection. I do not suspect stroke or posterior stroke. Possible TIA Plan labs, imaging, urine. Differential Diagnosis Differential Diagnoses: The differential diagnosis associated with the presentation includes Concerns for possible act to light abnormalities, CHF, unlikely pneumonia, PE, ACS, dissection. I do not suspect stroke or posterior stroke. Possible TIA Admission/Observation Consideration of admission/observation: Escalation of care including admission/observation considered Lab Data MDM Lab Attestation statement: I reviewed the patient's lab results. 12/11/22 11:13 12/11/22 11:13 Labs: Lab Results 12/11/22 12/11/22 12/11/22 Range/Units 11:13 11:13 11:13 WBC 9.8 (4.8-10.8) X10*3/uL RBC 4.18 L (4.60-5.80) X10*6/uL Hgb 13.4 L (14.0-18.0) g/dl Hct 40.5 L (42.0-52.0) % MCV 96.9 (80.0-98.0) fL MCH 32.1 (27.0-33.0) pg MCHC 33.1 (31.0-36.0) g/dl RDW 13.2 (11.0-16.0) % Plt Count 220 D (160-400) X10*3/uL MPV 9.3 L (9.4-12.4) fL Immature Gran % (Auto) 0.4 (0.0-0.4) % Neut % (Auto) 74.9 H (45-73) % Lymph % (Auto) 16.3 L (20-40) % [place] % (Auto) 7.4 (2-11) % Eos % (Auto) 0.6 (0-4) % Baso % (Auto) 0.4 (0-2) % Lymph # (Auto) 1.6 (1.2-4.9) X10*3/uL [place] # (Auto) 0.7 (0.1-1.2) X10*3/uL Eos # (Auto) 0.1 (0.0-0.4) X10*3/uL Baso # (Auto) 0.0 (0.0-0.2) X10*3/uL Abs Immat Gran (auto) 0.04 H (0.00-0.03) X10*3/uL Absolute Neuts (auto) 7.3 (2.0-8.3) x10*3/uL Absolute Nucleated RBC 0.000 (0.0-0.012) X10*3/uL Nucleated RBC % (auto) 0.0 (0.0-0.2) /100WBC Sodium 140 (135-145) mmol/L Potassium 4.2 (3.3-5.1) mmol/L Chloride 105 (96-108) mmol/L Carbon Dioxide 23 (22-29) mmol/L Anion Gap 16 (12-20) BUN 41 H (9-16) mg/dL Creatinine 1.61 H (0.5-1.4) mg/dL Estim Creat Clear Calc 39.7 Estimated GFR 41 Random Glucose 134 H (60-115) mg/dL Lactic Acid (0.5-2.0) mmol/L Calcium 10.0 D (8.4-10.2) mg/dL Magnesium 1.9 (1.6-2.6) mg/dL Total Bilirubin 1.9 H (0.0-1.0) mg/dL AST 20 (5-37) U/L ALT 19 (0-40) U/L Alkaline Phosphatase 65 (39-117) U/L Troponin I High Sens 17.5 (<3.5-35.0) ng/L B-Natriuretic Peptide (<100) pg/mL Total Protein 7.1 (6.5-8.0) g/dL Albumin 4.2 (3.5-5.0) g/dL Urine Color Urine Appearance Urine pH (5.0-9.0) Ur Specific [place] (1.005-1.025) Urine Protein (Neg-Trace) mg/dL Urine Glucose (UA) (Negative) mg/dL Urine Ketones (Negative) mg/dL Urine Blood (Negative) Urine Nitrite (Negative) Ur Leukocyte Esterase (Negative) Urine RBC (0-2) /HPF Urine WBC (0-5) /HPF Ur Squamous Epith Cells (0-2) /HPF Urine Bacteria (None Seen) Hyaline Casts (0-2) /LPF Granular Casts COVID-19 (MARTHA) (Negative) COVID-19 Clin Com 12/11/22 12/11/22 12/11/22 Range/Units 11:13 11:13 11:13 WBC (4.8-10.8) X10*3/uL RBC (4.60-5.80) X10*6/uL Hgb (14.0-18.0) g/dl Hct (42.0-52.0) % MCV (80.0-98.0) fL MCH (27.0-33.0) pg MCHC (31.0-36.0) g/dl RDW (11.0-16.0) % Plt Count (160-400) X10*3/uL MPV (9.4-12.4) fL Immature Gran % (Auto) (0.0-0.4) % Neut % (Auto) (45-73) % Lymph % (Auto) (20-40) % [place] % (Auto) (2-11) % Eos % (Auto) (0-4) % Baso % (Auto) (0-2) % Lymph # (Auto) (1.2-4.9) X10*3/uL [place] # (Auto) (0.1-1.2) X10*3/uL Eos # (Auto) (0.0-0.4) X10*3/uL Baso # (Auto) (0.0-0.2) X10*3/uL Abs Immat Gran (auto) (0.00-0.03) X10*3/uL Absolute Neuts (auto) (2.0-8.3) x10*3/uL Absolute Nucleated RBC (0.0-0.012) X10*3/uL Nucleated RBC % (auto) (0.0-0.2) /100WBC Sodium (135-145) mmol/L Potassium (3.3-5.1) mmol/L Chloride (96-108) mmol/L Carbon Dioxide (22-29) mmol/L Anion Gap (12-20) BUN (9-16) mg/dL Creatinine (0.5-1.4) mg/dL Estim Creat Clear Calc Estimated GFR Random Glucose (60-115) mg/dL Lactic Acid 1.5 (0.5-2.0) mmol/L Calcium (8.4-10.2) mg/dL Magnesium (1.6-2.6) mg/dL Total Bilirubin (0.0-1.0) mg/dL AST (5-37) U/L ALT (0-40) U/L Alkaline Phosphatase (39-117) U/L Troponin I High Sens (<3.5-35.0) ng/L B-Natriuretic Peptide 30 (<100) pg/mL Total Protein (6.5-8.0) g/dL Albumin (3.5-5.0) g/dL Urine Color Urine Appearance Urine pH (5.0-9.0) Ur Specific [place] (1.005-1.025) Urine Protein (Neg-Trace) mg/dL Urine Glucose (UA) (Negative) mg/dL Urine Ketones (Negative) mg/dL Urine Blood (Negative) Urine Nitrite (Negative) Ur Leukocyte Esterase (Negative) Urine RBC (0-2) /HPF Urine WBC (0-5) /HPF Ur Squamous Epith Cells (0-2) /HPF Urine Bacteria (None Seen) Hyaline Casts (0-2) /LPF Granular Casts COVID-19 (MARTHA) Negative (Negative) COVID-19 Clin Com See Note 12/11/22 12/11/22 12/11/22 Range/Units 14:02 14:45 14:45 WBC (4.8-10.8) X10*3/uL RBC (4.60-5.80) X10*6/uL Hgb (14.0-18.0) g/dl Hct (42.0-52.0) % MCV (80.0-98.0) fL MCH (27.0-33.0) pg MCHC (31.0-36.0) g/dl RDW (11.0-16.0) % Plt Count (160-400) X10*3/uL MPV (9.4-12.4) fL Immature Gran % (Auto) (0.0-0.4) % Neut % (Auto) (45-73) % Lymph % (Auto) (20-40) % [place] % (Auto) (2-11) % Eos % (Auto) (0-4) % Baso % (Auto) (0-2) % Lymph # (Auto) (1.2-4.9) X10*3/uL [place] # (Auto) (0.1-1.2) X10*3/uL Eos # (Auto) (0.0-0.4) X10*3/uL Baso # (Auto) (0.0-0.2) X10*3/uL Abs Immat Gran (auto) (0.00-0.03) X10*3/uL Absolute Neuts (auto) (2.0-8.3) x10*3/uL Absolute Nucleated RBC (0.0-0.012) X10*3/uL Nucleated RBC % (auto) (0.0-0.2) /100WBC Sodium 140 (135-145) mmol/L Potassium 4.6 (3.3-5.1) mmol/L Chloride 108 (96-108) mmol/L Carbon Dioxide 21 L (22-29) mmol/L Anion Gap 16 (12-20) BUN 37 H (9-16) mg/dL Creatinine 1.31 (0.5-1.4) mg/dL Estim Creat Clear Calc 48.8 Estimated GFR 52 Random Glucose 132 H (60-115) mg/dL Lactic Acid (0.5-2.0) mmol/L Calcium 9.2 D (8.4-10.2) mg/dL Magnesium (1.6-2.6) mg/dL Total Bilirubin (0.0-1.0) mg/dL AST (5-37) U/L ALT (0-40) U/L Alkaline Phosphatase (39-117) U/L Troponin I High Sens 10.4 (<3.5-35.0) ng/L B-Natriuretic Peptide (<100) pg/mL Total Protein (6.5-8.0) g/dL Albumin (3.5-5.0) g/dL Urine Color Yellow Urine Appearance Clear Urine pH 5.5 (5.0-9.0) Ur Specific [place] 1.025 (1.005-1.025) Urine Protein 30 (1+) H (Neg-Trace) mg/dL Urine Glucose (UA) Negative (Negative) mg/dL Urine Ketones Trace (Negative) mg/dL Urine Blood Negative (Negative) Urine Nitrite Negative (Negative) Ur Leukocyte Esterase Negative (Negative) Urine RBC 0-2 (0-2) /HPF Urine WBC 0-5 (0-5) /HPF Ur Squamous Epith Cells 0-2 (0-2) /HPF Urine Bacteria None Seen (None Seen) Hyaline Casts 6-10 (0-2) /LPF Granular Casts Present COVID-19 (MARTHA) (Negative) COVID-19 Clin Com Independent Interpretation I performed an independent interpretation of an: EKG (Ventricular rate of 65, MD normal, QRS normal, QT/QTC normal. EKG with ST elevations in lead 3, sinus rhythm with first-degree AV block, right bundle branch block, when compared to EKG from 10/20/2022 no acute findings.), Plain X-Ray (XR/XR chest 1V IMPRESSION: No acute cardiopulmonary process.) and CT Scan (CT/CT head for stroke IMPRESSION: No acute intracranial pathology.) Radiology Impression Discussion of test interpretation with radiology: I have reviewed the radiologist's reading. Tests considered The following testing was considered but not selected: No focal neuro deficits no need for CTA or MRI. Core Measures AMI core measures followed: Yes Measure exclusions: not indicated Critical Care Time Critical Care Time Critical Care Time: No Discharge Plan Discharge Clinical Impression: Dehydration, Physical deconditioning, Shortness of breath Patient Disposition: Still a Patient Prescriptions: No Action donepezil 10 mg tablet 1 tab PO BEDTIME atenolol 25 mg tablet 1 tab PO DAILY gabapentin 100 mg capsule 1 cap PO TID Xarelto 20 mg tablet 1 tab PO DAILY@1700 insulin glargine [Lantus U-100 Insulin] 100 unit/mL Solution 30 unit SUBCUT DAILY atorvastatin 40 mg tablet 40 mg PO BEDTIME Januvia 100 mg tablet 100 mg PO DAILY venlafaxine 150 mg capsule,extended release 24hr 150 mg PO DAILY
[2022-12-11 12:36] LABS: B Type Natriuretic Peptide 30 pg/mL (<100)
[2022-12-11] MEDS: 0.9 % Sodium Chloride 1,000 ML 999 ML IV ×2 (12:49→15:17)
[2022-12-11 14:10] LABS: Appearance Urine Clear; Color Urine Yellow; Glucose Urine UA Negative (Negative); Leukocyte Esterase Urine Negative (Negative); Nitrite Urine Negative (Negative); PH 5.5 (5.0-9.0); Specific Gravity - Urine 1.025 (1.005-1.025); UMIC TRIGGER UACC YES; Urine Blood Negative (Negative); Urine Ketones Trace mg/dL (Negative); Urine Protein 30 (1+) mg/dL (Neg-Trace)
[2022-12-11 14:25] LABS: Bacteria Urine None Seen (None Seen); Granular Casts Urine Present; RBC Urine 0-2 /HPF (0-2); Squamous Epithelial Cell Urine 0-2 /HPF (0-2); WBC Urine 0-5 /HPF (0-5)
[2022-12-11 15:10] LABS: Anion Gap 16 (12-20); Blood Urea Nitrogen 37 mg/dL (9-16); Calcium 9.2 mg/dL (8.4-10.2); Carbon Dioxide 21 mmol/L (22-29); Chloride 108 mmol/L (96-108); Creatinine Clr Calc Pharmacy 48.8; Estimated Glomerular Filt Rate 52; Glucose Random 132 mg/dL (60-115); Potassium 4.6 mmol/L (3.3-5.1); Sodium 140 mmol/L (135-145)
[2022-12-11 15:12] LABS: Troponin-I High Sensitivity 10.4 ng/L (<3.5-35.0)
--- NOTE | 2022-12-11 15:44 | MHC.CM.ED ---
PATIENT ASKS THAT THIS MEAT PASSER CALL HIS SON, JAYASHREE. [phone] PATIENT IS ACTIVE WITH [facility] FOR HOME HEALTH AID, RN SKILLS (OSTOMY CARE), AND P.T. PATIENT WAS IN REHAB AT [facility] UNTIL MOTHER'S DAY (NOVEMBER 13, 2022). SON ASKS FOR A REFERRAL TO FACILITY, NOW PLACED. COPY OF HCP REQUESTED IT IS REPORTEDLY AT PCP OFFICE. CALL CAN BE MADE ON MONDAY SON IS TRAVELING TO [place], [place] TOMORROW MORNING. HE CAN BE REACHED BY PHONE AND ASKS FOR UPDATE.
[2022-12-11 15:54] VITALS: BP 120/56; PULSE 56; RESP 12; TEMP 36.4; O2SAT 100
--- NOTE | 2022-12-11 17:05 | PHA.MEDREC ---
Pharmacy Consult ? Medication Reconciliation Pharmacy has completed the medication reconciliation. Patient's son at bedside with list of medications on phone
--- NOTE | 2022-12-11 17:30 | MHC.EDTECH ---
at 1727 tw assisted pt to empt out his colostomy bag. The content discarded had a liquid and brown-gus aspect, it was aprox 200mL.
--- NOTE | 2022-12-11 18:37 | PC.NURSE ---
Patient transferred from main ED to [facility] via stretcher. Patient attempted to ambulate from stretcher to bed but felt too dizzy. Patient AAOx3, reports continued lightheadedness. Denies chest pain, SOB, or generalized pains. Ostomy in place, emptied shortly before transfer. Urinal at bedside. Water given. Dinner ordered, awaiting for it to be brought. All needs met at this time.
--- NOTE | 2022-12-11 18:47 | MHC.EDTECH ---
pt did not receive dinner although order placed. pt moved to overflow after kitchen closed. t/w provided pt w/ sandwich, crackers, and cheese stick. pt currently resting, watching tv
[2022-12-11 19:36] VITALS: BP 138/65; PULSE 60; RESP 15; TEMP 37; O2SAT 98
--- NOTE | 2022-12-11 21:14 | MHC.EDTECH ---
t/w emptied ostomy bag per pt request. emptied 100 cc liquid output and mostly gas.
--- NOTE | 2022-12-11 21:30 | PC.NURSE ---
Pt A&OX4, calm and cooperative. VSS, on RA, Pt has ostomy to RLQ and uses urinal. He has some redness to R-leg and some non pitting lower ext edema. Pts med list has been confirmed by pharmacy however there are no meds ordered for him. Provider Ananya notified. Awaiting orders.
[2022-12-12 05:07] VITALS: BP 149/59; PULSE 61; RESP 18; TEMP 36.1; O2SAT 97
--- NOTE | 2022-12-12 08:57 | MHC.CM.ED ---
Addendum entered by Dorothy Mukherjee 12/12/22 12:00: PT eval completed. Short term rehab is recommended. [facility] has been asked to go for insurance auth. Original Note: Patient remains in ER overflow. Physical therapy eval is pending. Clinical updates sent to [facility]. Continue to monitor for d/c needs.
[2022-12-12] MEDS: Venlafaxine HCl ER 150 MG CAP.ER.24H PO (09:26)
[2022-12-12] MEDS: atenoloL 25 MG TABLET PO (09:27)
[2022-12-12] MEDS: amLODIPine Besylate 10 MG TABLET PO (09:27)
[2022-12-12] MEDS: Donepezil HCl 10 MG TABLET PO (09:27)
[2022-12-12] MEDS: Venlafaxine HCl ER 37.5 MG CAP.ER.24H PO (09:27)
[2022-12-12] MEDS: Gabapentin 100 MG CAPSULE 200 MG PO (09:27)
[2022-12-12] MEDS: Acetaminophen 325 MG TABLET 650 MG PO ×2 (09:28→20:37)
[2022-12-12] MEDS: SITagliptin Phosphate 100 MG TABLET PO (09:28)
[2022-12-12 10:52] VITALS: BP 136/61
[2022-12-12 13:42] VITALS: BP 142/69; PULSE 94; RESP 18; TEMP 36.6; O2SAT 98
--- NOTE | 2022-12-12 17:13 | PC.NURSE ---
Pt A/Ox3. PT eval completed today, rec rehab. CM involved and referral sent to [facility], awaiting auth. VSS, denies any pain or discomfort. Family in to visit. Ostomy in place, emptied as needed. Pt voiding in urinal without issues. Blood cultures 2 our of 2 came back positive for gram+ cocci TANK ramos made aware and repeat cultures drawn and sent to lab. Will cont to monitor.
[2022-12-12] MEDS: Rivaroxaban 20 MG TABLET PO (17:36)
[2022-12-12] MEDS: Atorvastatin Calcium 40 MG TABLET PO (20:37)
[2022-12-12] MEDS: Gabapentin 100 MG CAPSULE PO (20:37)
[2022-12-12] MEDS: Insulin Glargine,Hum.rec.anlog 100 UNIT/ML 10 ML VIAL 30 UNIT SUBCUT (20:37)
[2022-12-12 20:55] LABS: Glucose, Whole Blood 260 mg/dL (60-115)
[2022-12-12 22:00] VITALS: BP 149/59; PULSE 62; RESP 16; TEMP 36.4; O2SAT 98
--- NOTE | 2022-12-12 23:02 | MHC.EDTECH ---
Boost up in bed, emptied urinal, and gave a cup of water.
[2022-12-13 06:00] VITALS: BP 148/64; PULSE 60; RESP 20; TEMP 36.2; O2SAT 98
[2022-12-13 07:14] VITALS: BP 137/79; PULSE 98; RESP 18; TEMP 36.6; O2SAT 100
[2022-12-13 07:19] VITALS: BP 150/70; PULSE 59; RESP 16; TEMP 36.9; O2SAT 96
[2022-12-13] MEDS: amLODIPine Besylate 10 MG TABLET PO (08:14)
[2022-12-13] MEDS: Venlafaxine HCl ER 150 MG CAP.ER.24H PO (08:14)
[2022-12-13] MEDS: SITagliptin Phosphate 100 MG TABLET PO (08:14)
[2022-12-13] MEDS: Acetaminophen 325 MG TABLET 650 MG PO (08:14)
[2022-12-13] MEDS: Donepezil HCl 10 MG TABLET PO (08:14)
[2022-12-13] MEDS: Gabapentin 100 MG CAPSULE 200 MG PO (08:14)
[2022-12-13] MEDS: atenoloL 25 MG TABLET PO (08:14)
[2022-12-13] MEDS: Venlafaxine HCl ER 37.5 MG CAP.ER.24H PO (08:14)
--- NOTE | 2022-12-13 14:54 | MHC.CM.ED ---
Addendum entered by Dorothy Mukherjee 12/13/22 15:42: Insurance has been obtained from [facility]. Patient can leave at 5pm. [facility] booked. Med nec with chart. Patient, son JeancarlosCarmen RN and Kimberly FU aware. Original Note: Patient remains in ER overflow. Still waiting for insurance auth for [facility]. Continue to monitor for d/c needs.
--- NOTE | 2022-12-13 16:01 | PC.NURSE ---
Pt A/Ox3. VSS, denies any pain or discomfort. Family in to visit. Ostomy in place, emptied as needed. Pt voiding in urinal without issues. Plan to d/c to [facility] at 1700 via ambulance. Pt and family aware and in agreement with plan. Will cont to monitor.
[2022-12-13 16:05] VITALS: BP 132/61; PULSE 60; RESP 18; TEMP 36.3; O2SAT 97
[2022-12-13] MEDS: Rivaroxaban 20 MG TABLET PO (16:42)
== END 2022-12-13 16:20 | disposition skilled nursing facility (03) ==
PROVIDERS: Physician Assistant; Emergency Provider Student in an Organized Health Care Education/Training Program; PCP Family Medicine
DX: E86.0 Dehydration (principal); R06.02 Shortness of breath; R26.2 Difficulty in walking, not elsewhere classified; R51.9 Headache, unspecified; Z20.822 Contact with and (suspected) exposure to COVID-19; Z20.828 Contact with and (suspected) exposure to other viral communicable diseases; Z79.899 Other long term (current) drug therapy
CPT/HCPCS: 36415; 70450; 71045; 80048; 80053; 81001; 82947; 83605; 83735; 83880; 84484; 85025; 87040; 87077; 87147; 87186; 87205; 87635; 93005; 96360; 96361; 97162; 99285

== ENCOUNTER 2023-01-03 06:05 | Emergency (ER) | payer MEDICARE, SELFPAY ==
[2023-01-03 06:40] VITALS: BP 116/62; BP 148/60; PULSE 66; PULSE 90; RESP 17; O2SAT 99; BMI 31.8
[2023-01-03 06:51] VITALS: BP 140/64; BP 148/60; PULSE 66; RESP 17; O2SAT 99
--- NOTE | 2023-01-03 06:51 | PC.NURSE ---
pt comes from [facility] independent living with on blood thinners (Xarelto) fall- no LOC, no head strike, downtime 30-45 min slip/fall while attempting to empty ileostomy bag lac on back? pt's skin assessed, observed scrape/scratch on part of back, no lac noted C Collar placed
--- NOTE | 2023-01-03 07:15 | PC.NURSE ---
Dr Rain aware of pt's multiple falls and downtime, blood thinners
--- NOTE | 2023-01-03 07:17 | ED.FALL ---
HPI - Fall General Chief Complaint: Fall Stated Complaint: Fall Time Seen by Provider: 01/03/23 07:16 Source: patient and family (Son, Mega) Mode of arrival: EMS Limitations: no limitations History of Present Illness HPI Narrative: 82-year-old male patient who was brought to the emergency department by ambulance evaluation of fall this morning. Information came from the patient and from the patient's son, Mega was here in the emergency department according to the patient's son the patient had a fall in October 2022, initially presented here and was found to have a small hematoma is sent to [facility]. After leaving [facility] the patient was in rehab for approximately 3 weeks. He came home for a short period of time but needed to go back to short-term rehab again in October. Patient has been home from short-term rehab since 12/29/2022, 5 days. The patient does have a history of gait instability and orthostatic hypotension. The patient had a fall yesterday, his son was able to get him off the floor and get him back in bed. This morning, the patient states that he got up to empty his ileostomy bag. He states that after he got the bag back on he turned, lost his balance and fell. He does not believe that he struck his head or loss consciousness. He was on the floor for approximately 30-45 minutes. The patient was then brought to the emergency department by ambulance. The patient is awake and alert and is able to answer questions. He denied headache, neck pain, chest pain, abdominal pain. He states that the ostomy output is normal, he has not noticed any blood in the ostomy bag or dark stool. He denied fever, chills, chest pain, cough. Patient states that he has short shortness of breath at baseline and has dyspnea on exertion at 5-6 feet. The son notes that the patient gets very winded walking from his bed to the kitchen. Patient denied nausea, vomiting, frequency, urgency or dysuria. Related Data Home Medications Medication Instructions Recorded Confirmed atenolol 25 mg tablet 1 tab PO DAILY 05/27/21 01/03/23 donepezil 10 mg tablet 1 tab PO BEDTIME 05/27/21 01/03/23 insulin glargine 100 unit/mL 30 unit subcut DAILY 05/27/21 01/03/23 subcutaneous solution (Lantus U-100 Insulin) rivaroxaban 20 mg tablet (Xarelto) 1 tab PO DAILY@1700 05/27/21 01/03/23 atorvastatin 40 mg tablet 40 mg PO BEDTIME 10/20/22 01/03/23 sitagliptin phosphate 100 mg 100 mg PO DAILY 10/20/22 01/03/23 tablet (Januvia) venlafaxine 150 mg 150 mg PO DAILY 10/20/22 01/03/23 capsule,extended release 24 hr gabapentin 100 mg capsule 100 mg PO DAILY 12/11/22 01/03/23 Allergies Allergy/AdvReac Type Severity Reaction Status Date / Time No Known Allergies Allergy Verified 10/20/22 09:37 Review of Systems Review of Systems: Yes all other systems are reviewed and are negative [facility] Past Medical History [facility] Narrative: Past medical history: DVT on Xarelto, cardiac stent, colitis -ostomy bag, right 10 rib fracture-12/08/2021, acute subarachnoid hemorrhage 10/20/2022 in the right perirolandic region, diabetes mellitus, hyperlipidemia, cognitive impairment, orthostatic hypotension. Social history: He lives with his in an assisted living apartment. He denies tobacco, alcohol and drug use. Social History Social History Alcohol intake: never Patient Tobacco Use Status: Never used Tobacco Smoked in Last 30 Days: No Use of substances other than those prescribed or required for medical reasons: No Advance Directives: No Advance Directives Information Provided: Yes Physical Exam Vital Signs: Vital Signs: Last Vital Signs Temp 97.1 F 01/03/23 14:00 Pulse 72 01/03/23 14:00 Resp 16 01/03/23 14:00 BP 137/63 01/03/23 14:00 Pulse Ox 98 01/03/23 14:00 O2 Del Method Room Air 01/03/23 14:00 BMI result Body Mass Index 31.8 Vital signs were normal General: Awake, alert, elderly male, answers questions appropriately, HEENT: Head is normal cephalic and atraumatic, pupils were equal round reactive light, sclera contact however normal, mouth revealed moist membranes Neck: Supple, nontender Lungs: Clear to auscultation, breath sounds symmetric bilaterally Heart: Regular rate rhythm, normal S1-S2, 2/6 systolic murmur best heard at the left lower sternal border Abdomen: Soft, nontender, non distended, patient does have an ostomy bag which is filled with brown loose stool, the bag is leaking from the bottom since the patient did not fold the bottom and attaches with the Velcro older Back: No tenderness, patient does have a skin tear over the sacral area and sacral area skin appears to be very thin Neuro: Cranial nerves 2-12 intact, strength symmetric, patient was able to stand but appeared to be very off balance and can only take 1 step before we had to put him back in bed Medications Administered Generic Name Dose Route Start Last Admin Trade Name Freq PRN Reason Stop Dose Admin Atenolol 25 mg 01/03/23 10:30 01/03/23 11:52 Atenolol 25 Mg Tablet PO 25 mg DAILY SCOTT Administration Protocol Gabapentin 100 mg 01/03/23 10:45 01/03/23 11:52 Gabapentin 100 Mg Capsule PO 100 mg DAILY SCOTT Administration Insulin Glargine 30 unit 01/03/23 10:45 01/03/23 11:52 Insulin Glargine,Hum.Rec.Anlog 100 Unit/Ml 10 Ml Vial SUBCUT 30 unit DAILY SCOTT Administration Sitagliptin Phosphate 100 mg 01/03/23 10:45 01/03/23 11:53 Sitagliptin Phosphate 100 Mg Tablet PO 100 mg DAILY SCOTT Administration Venlafaxine HCl 150 mg 01/03/23 10:45 01/03/23 11:53 Venlafaxine Hcl Er 150 Mg Cap.Er.24h PO 150 mg DAILY SCOTT Administration Medical Decision Making Medical Decision Making [facility] Narrative: 82-year-old male with a history of diabetes mellitus, hyperlipidemia, hypertension, orthostatic hypotension, cognitive impairment, coronary artery disease with stent, DVT on Xarelto, subarachnoid hemorrhage (10/20/2022) who was released from short-term rehab 12/29/2022 and now presents emergency department for evaluation of a fall yesterday and a fall this morning. Patient's examination is most significant for inability to stand and walk-appears to be very off balance. I ordered a CBC, CMP, urinalysis, CT scan of the head and cervical spine 0803: Patient's laboratory evaluation is consistent with his baseline. I will get a case management and physical therapy consult to determine if this patient is safe to be discharged home I did discuss my concerns with the patient's son. The patient has been short-term rehab at least 2 times and at this time I believe that long-term care facility needs to be considered since despite having home VNA and today [facility] services, the family is not able to care for the patient at home. 1010: Start physician observation: The patient CT scan of the head and neck was unremarkable. Laboratory evaluation was consistent with mild anemia, elevated INR, PTT related to Xarelto treatment Urinalysis was negative. Patient is medically cleared for PT/case management evaluation I did order a diabetic diet, we will check patient's when he for glucose before meals and at bedtime Patient's medications were reconciled in ordered Patient will be sent to the overflow area and kept on physician observation until appropriate/safe disposition can be determined. 1523: Physician observation continued The patient is waiting for normal physical therapy and case management evaluation. At the end of my shift, patient's care was turned over to my colleague, Dr. Hein Differential Diagnosis Differential Diagnoses: The differential diagnosis associated with the presentation includes Differential diagnosis includes was not limited to skull fracture, cerebral bleed neck fracture, neck sprain, anemia, electrolyte abnormality, urinary tract infection, gait instability Admission/Observation Consideration of admission/observation: Escalation of care including admission/observation considered Consult Healthcare Provider Management of the patient was discussed with: Registered Massage Therapist (Case management and physical therapy) Lab Data MDM Lab Attestation statement: I reviewed the patient's lab results. My interpretation patient's laboratory evaluation is as follows: WBC was normal. Patient is anemic with an H&H of 12 and 36.5. Platelet count was normal. BUN and creatinine are elevated 32 and 1.41-this is chronic. Glucose elevated 260. Urinalysis was negative. 01/03/23 06:56 01/03/23 06:56 Labs: Lab Results 01/03/23 01/03/23 01/03/23 Range/Units 06:56 06:56 07:45 WBC 9.2 (4.8-10.8) X10*3/uL RBC 3.77 L (4.60-5.80) X10*6/uL Hgb 12.0 L (14.0-18.0) g/dl Hct 36.5 L (42.0-52.0) % MCV 96.8 (80.0-98.0) fL MCH 31.8 (27.0-33.0) pg MCHC 32.9 (31.0-36.0) g/dl RDW 13.7 (11.0-16.0) % Plt Count 187 (160-400) X10*3/uL MPV 9.4 (9.4-12.4) fL Immature Gran % (Auto) 0.4 (0.0-0.4) % Neut % (Auto) 75.5 H (45-73) % Lymph % (Auto) 15.4 L (20-40) % [place] % (Auto) 7.9 (2-11) % Eos % (Auto) 0.5 (0-4) % Baso % (Auto) 0.3 (0-2) % Lymph # (Auto) 1.4 (1.2-4.9) X10*3/uL [place] # (Auto) 0.7 (0.1-1.2) X10*3/uL Eos # (Auto) 0.1 (0.0-0.4) X10*3/uL Baso # (Auto) 0.0 (0.0-0.2) X10*3/uL Abs Immat Gran (auto) 0.04 H (0.00-0.03) X10*3/uL Absolute Neuts (auto) 6.9 (2.0-8.3) x10*3/uL Absolute Nucleated RBC 0.000 (0.0-0.012) X10*3/uL Nucleated RBC % (auto) 0.0 (0.0-0.2) /100WBC Sodium 137 (135-145) mmol/L Potassium 4.5 (3.3-5.1) mmol/L Chloride 105 (96-108) mmol/L Carbon Dioxide 20 L (22-29) mmol/L Anion Gap 17 (12-20) BUN 32 H (9-16) mg/dL Creatinine 1.41 H (0.5-1.4) mg/dL Estim Creat Clear Calc 43.5 Estimated GFR 48 POC Glucose (60-115) mg/dL Random Glucose 99 (60-115) mg/dL Calcium 10.3 H D (8.4-10.2) mg/dL Total Bilirubin 1.7 H (0.0-1.0) mg/dL AST 20 (5-37) U/L ALT 19 (0-40) U/L Alkaline Phosphatase 65 (39-117) U/L Total Protein 6.9 (6.5-8.0) g/dL Albumin 4.0 (3.5-5.0) g/dL Urine Color Yellow Urine Appearance Clear Urine pH 5.0 (5.0-9.0) Ur Specific [place] <= 1.005 (1.005-1.025) Urine Protein Negative (Neg-Trace) mg/dL Urine Glucose (UA) Negative (Negative) mg/dL Urine Ketones Negative (Negative) mg/dL Urine Blood Negative (Negative) Urine Nitrite Negative (Negative) Ur Leukocyte Esterase Negative (Negative) COVID-19 (MARTHA) (Negative) COVID-19 Clin Com 01/03/23 01/03/23 Range/Units 09:26 11:29 WBC (4.8-10.8) X10*3/uL RBC (4.60-5.80) X10*6/uL Hgb (14.0-18.0) g/dl Hct (42.0-52.0) % MCV (80.0-98.0) fL MCH (27.0-33.0) pg MCHC (31.0-36.0) g/dl RDW (11.0-16.0) % Plt Count (160-400) X10*3/uL MPV (9.4-12.4) fL Immature Gran % (Auto) (0.0-0.4) % Neut % (Auto) (45-73) % Lymph % (Auto) (20-40) % [place] % (Auto) (2-11) % Eos % (Auto) (0-4) % Baso % (Auto) (0-2) % Lymph # (Auto) (1.2-4.9) X10*3/uL [place] # (Auto) (0.1-1.2) X10*3/uL Eos # (Auto) (0.0-0.4) X10*3/uL Baso # (Auto) (0.0-0.2) X10*3/uL Abs Immat Gran (auto) (0.00-0.03) X10*3/uL Absolute Neuts (auto) (2.0-8.3) x10*3/uL Absolute Nucleated RBC (0.0-0.012) X10*3/uL Nucleated RBC % (auto) (0.0-0.2) /100WBC Sodium (135-145) mmol/L Potassium (3.3-5.1) mmol/L Chloride (96-108) mmol/L Carbon Dioxide (22-29) mmol/L Anion Gap (12-20) BUN (9-16) mg/dL Creatinine (0.5-1.4) mg/dL Estim Creat Clear Calc Estimated GFR POC Glucose 201 H (60-115) mg/dL Random Glucose (60-115) mg/dL Calcium (8.4-10.2) mg/dL Total Bilirubin (0.0-1.0) mg/dL AST (5-37) U/L ALT (0-40) U/L Alkaline Phosphatase (39-117) U/L Total Protein (6.5-8.0) g/dL Albumin (3.5-5.0) g/dL Urine Color Urine Appearance Urine pH (5.0-9.0) Ur Specific [place] (1.005-1.025) Urine Protein (Neg-Trace) mg/dL Urine Glucose (UA) (Negative) mg/dL Urine Ketones (Negative) mg/dL Urine Blood (Negative) Urine Nitrite (Negative) Ur Leukocyte Esterase (Negative) COVID-19 (MARTHA) Negative (Negative) COVID-19 Clin Com See Note Independent Interpretation I performed an independent interpretation of an: CT Scan Interpretation: My independent interpretation patient's CT scan of the brain is as follows: No acute fracture, no acute bleed Radiology Impression Discussion of test interpretation with radiology: I discussed test interpretation with the radiologist Radiologist Impression: CT head/brain and CT cervical spine wo IV con IMPRESSION: 1. No acute intracranial pathology. 2. No fractures or dislocations of the cervical spine. Dictated By:Rizwan Palacio MD Discharge Plan Discharge Clinical Impression: Fall, Abnormal gait Patient Disposition: Still a Patient Prescriptions: No Action donepezil 10 mg tablet 1 tab PO BEDTIME atenolol 25 mg tablet 1 tab PO DAILY Xarelto 20 mg tablet 1 tab PO DAILY@1700 insulin glargine [Lantus U-100 Insulin] 100 unit/mL Solution 30 unit SUBCUT DAILY atorvastatin 40 mg tablet 40 mg PO BEDTIME Januvia 100 mg tablet 100 mg PO DAILY venlafaxine 150 mg capsule,extended release 24hr 150 mg PO DAILY gabapentin 100 mg capsule 100 mg PO DAILY
[2023-01-03 07:22] LABS: Alanine Aminotransferase 19 U/L (0-40); Alkaline Phosphatase 65 U/L (39-117); Anion Gap 17 (12-20); Aspartate Amino Transferase 20 U/L (5-37); Bilirubin Total 1.7 mg/dL (0.0-1.0); Blood Urea Nitrogen 32 mg/dL (9-16); Calcium 10.3 mg/dL (8.4-10.2); Carbon Dioxide 20 mmol/L (22-29); Chloride 105 mmol/L (96-108); Creatinine Clr Calc Pharmacy 43.5; Estimated Glomerular Filt Rate 48; Glucose Random 99 mg/dL (60-115); Potassium 4.5 mmol/L (3.3-5.1); Sodium 137 mmol/L (135-145); Total Protein 6.9 g/dL (6.5-8.0)
--- NOTE | 2023-01-03 08:27 | PHA.MEDREC ---
Pharmacy Consult ? Medication Reconciliation Pharmacy has completed the medication reconciliation. Med rec complete using list from [facility].
--- NOTE | 2023-01-03 09:16 | PC.NURSE ---
pt reporting that his ostomy is constantly draining and that's why he is falling so much. upon inspection, pt ostomy bag not properly closed, leading to drainage. educated pt on proper closure technique of ostomy bag.
[2023-01-03 10:51] VITALS: BP 145/65; PULSE 77; RESP 16; TEMP 36.1; O2SAT 98
--- NOTE | 2023-01-03 11:22 | MHC.CM.ED ---
Received consult for assessment of d/c needs. Met w/pt who states he has [facility] for RN and PT visits at [facility]. He states he is mostly independent but is slowing down. His son/HCP is concerned about his fall hx and is hoping for a PT eval and possible STR placement. Pt is in agreement w/plan: Pt states he uses a walker, PCP is Dr. Cotter ([facility]). PT eval to occur on 01/04 - STR referrals placed and pt re-referred to [facility] should he be able to return to home. ED CM to follow.
[2023-01-03 14:00] VITALS: BP 137/63; PULSE 72; RESP 16; TEMP 36.2; O2SAT 98
[2023-01-03 22:24] VITALS: BP 149/67; PULSE 67; O2SAT 97
--- NOTE | 2023-01-03 22:37 | PC.NURSE ---
patient resting in bed quietly,has no complaints
--- NOTE | 2023-01-03 23:13 | PC.NURSE ---
colostomy intact,emptied for large amt of flatus and medium soft brown BM
--- NOTE | 2023-01-03 23:15 | PC.NURSE ---
voided 220 ml yellow rine in urinal
--- NOTE | 2023-01-03 23:18 | PC.NURSE ---
repositioned patient,redness present under bilateral abdominal folds,bilateral groins and [place]-rectal area,cleansed patient and protective cream applied,small open area present on patient coocyx,area cleansed and protective drsg applied also noticed redness to bilateral heels,elevated both heels on 2 pillows,need for frequent hygiene and skin reassessment communicated with JON Kearns and 11-7 BRANDON Cantor.
--- NOTE | 2023-01-03 23:45 | PC.NURSE ---
BS 250 at 2245,patient asymptomatic,tiger message sent to Dr. Coelho.
[2023-01-04 00:34] VITALS: TEMP 36.3
--- NOTE | 2023-01-04 01:12 | PC.NURSE ---
Assumed care of patient at 2300. Patient resting quietly. No complaints at present time. Will continue to monitor.
[2023-01-04 05:20] VITALS: BP 138/65; PULSE 76; RESP 16; TEMP 36.3; O2SAT 96
[2023-01-04 14:00] VITALS: BP 134/53; PULSE 55; RESP 16; TEMP 36.9; O2SAT 99
--- NOTE | 2023-01-04 15:37 | PC.NURSE ---
Pt resting in bed at this time. Denies pain. All needs in reach
[2023-01-04 22:42] VITALS: BP 162/70; PULSE 66; RESP 20; O2SAT 97
--- NOTE | 2023-01-05 03:21 | PC.NURSE ---
ileostomy emptied. using urinal without difficulty. mental status at baseline, speech clear. madison care given--redness to abdominal folds/poweder applied. denies pain. awaiting authorization for placement to rehab. cont to reinforce safety.
[2023-01-05 06:00] VITALS: BP 152/93; PULSE 66; RESP 16; TEMP 36.1; O2SAT 95
[2023-01-05 11:29] VITALS: O2SAT 83
--- NOTE | 2023-01-05 11:49 | MHC.CM.ED ---
Addendum entered by Dorothy Mukherjee 01/05/23 13:12: Insurance auth has been obtained by [facility]. Patient can leave at 3pm. Lisa YOUNG booked. [facility] with chart. Patient, son Mega, Griselda RN and Kimberly FU aware. Original Note: Patient remains in ER oveflow. [facility] is in the process of trying to obtain insurance auth. Insurance is asking for additional PT note. Additional PT note provided to [facility]. Continue to monitor for d/c needs.
[2023-01-05 15:29] VITALS: BP 139/68; PULSE 56; RESP 18; TEMP 36.7; O2SAT 96
--- NOTE | 2023-01-05 15:40 | PC.NURSE ---
Patient transported to [facility] in [place] via ems. aware
== END 2023-01-05 15:42 | disposition skilled nursing facility (03) ==
PROVIDERS: Emergency Medicine Emergency Medical Services; Emergency Provider Emergency Medicine Emergency Medical Services; PCP Family Medicine
DX: R26.9 Unspecified abnormalities of gait and mobility (principal); Z91.81 History of falling; I95.1 Orthostatic hypotension; R06.09 Other forms of dyspnea; I82.409 Acute embolism and thrombosis of unspecified deep veins of unspecified lower extremity; Z79.01 Long term (current) use of anticoagulants; E11.9 Type 2 diabetes mellitus without complications; E78.5 Hyperlipidemia, unspecified; G31.84 Mild cognitive impairment of uncertain or unknown etiology; Z93.2 Ileostomy status
CPT/HCPCS: 36415; 70450; 72125; 80053; 81003; 82947; 85025; 87635; 97162; 97530; 99285

== ENCOUNTER 2023-03-07 15:28 | Emergency (ER) | payer MEDICARE, SELFPAY ==
--- NOTE | ~2023-03-07 | CT_ITS ---
EXAMINATION: CT CHEST WITHOUT CONTRAST CLINICAL INFORMATION: Left-sided rib pain COMPARISON: Previous chest x-ray most recent December 2022 TECHNIQUE: Multidetector volumetric CT imaging of the chest was done. Axial MIP volume rendering provided. Sagittal and coronal reformatted images were obtained. This CT examination was performed using dose optimization techniques as appropriate, variously including the following: *Automated exposure control *Adjustment of mA and/or kV according to patient size (this includes techniques or standardized protocols for targeted exams where dose is matched to indication/reason for exam; i.e. extremities or head) *Use of iterative reconstruction technique DLP: 384 mGy-cm FINDINGS: LUNGS: Mild increased peripheral reticular markings at the lung bases. There is some traction bronchiolectasis. Appearance is suggestive of mild interstitial lung disease. MEDIASTINUM: Normal heart size. Severe coronary artery calcification. Aortic valve calcification. No pericardial effusion. No enlarged lymph nodes. CORONARY ARTERY CALCIFICATION: Severe PLEURA: Trace bilateral pleural effusion or pleural thickening. AXILLA: No lymphadenopathy. UPPER ABDOMEN: Numerous liver cysts. Some cysts demonstrate wall calcification. Left renal cysts. No imaging follow-up recommended. Left renal stone. OSSEOUS STRUCTURES: Degenerative changes of the spine. Right rib fractures. No acute rib fractures. CT/CT chest wo IV con IMPRESSION: No acute rib fracture or chest wall finding. Severe degenerative changes of the thoracic spine. Mild peripheral interstitial lung disease. Trace bilateral pleural effusion or pleural thickening. Severe coronary artery calcification and aortic valve calcification. Fleischner guidelines were followed.
[2023-03-07 15:35] VITALS: BP 132/56; PULSE 51; RESP 18; TEMP 37; O2SAT 99; BMI 33.4
--- NOTE | 2023-03-07 15:36 | ED.GENADULT ---
HPI - General Adult General Chief complaint: Fall Stated complaint: Fall 03/05, Rib pain Related Data Home Medications Medication Instructions Recorded Confirmed atenolol 25 mg tablet 1 tab PO DAILY 05/27/21 06/04/23 donepezil 10 mg tablet 1 tab PO BEDTIME 05/27/21 06/04/23 insulin glargine 100 unit/mL 30 unit subcut DAILY 05/27/21 06/04/23 subcutaneous solution (Lantus U-100 Insulin) rivaroxaban 20 mg tablet (Xarelto) 1 tab PO DAILY@1700 05/27/21 06/04/23 atorvastatin 40 mg tablet 40 mg PO DAILY 10/20/22 06/04/23 sitagliptin phosphate 100 mg 100 mg PO DAILY 10/20/22 06/04/23 tablet (Januvia) venlafaxine 150 mg 150 mg PO DAILY 10/20/22 06/04/23 capsule,extended release 24 hr gabapentin 100 mg capsule 100 mg PO BID 12/11/22 06/04/23 acetaminophen 500 mg tablet 1,000 mg PO BID Pain 06/04/23 06/04/23 amlodipine 10 mg tablet 5 mg PO DAILY 06/04/23 06/04/23 ipratropium bromide 21 mcg (0.03 2 spray intranasal BID 06/04/23 06/04/23 %) nasal spray pioglitazone 15 mg tablet 15 mg PO DAILY 06/04/23 06/04/23 venlafaxine 37.5 mg 37.5 mg PO DAILY 06/04/23 06/04/23 capsule,extended release 24 hr Allergies Allergy/AdvReac Type Severity Reaction Status Date / Time No Known Allergies Allergy Verified 03/07/23 15:35 [facility] Social History Social History Alcohol intake: never Patient Tobacco Use Status: Never used Tobacco Advance Directives: No Advance Directives Information Provided: No Physical Exam ED Vital Signs: BMI result Body Mass Index 33.4 Course Course Course Narrative: Patient is an 82 year old male presenting after a fall on 03/05 where he hit his left side. On thinners. He hit his ribs, denies headstrike. Hard to take a deep breath. Rates pain a 7-8/10. Plan: Chest CT Discharge Plan Discharge Clinical Impression: Eloped from emergency department Patient Disposition: Elopement Prescriptions: No Action donepezil 10 mg tablet 1 tab PO BEDTIME atenolol 25 mg tablet 1 tab PO DAILY Xarelto 20 mg tablet 1 tab PO DAILY@1700 insulin glargine [Lantus U-100 Insulin] 100 unit/mL Solution 30 unit SUBCUT DAILY atorvastatin 40 mg tablet 40 mg PO DAILY Januvia 100 mg tablet 100 mg PO DAILY venlafaxine 150 mg capsule,extended release 24hr 150 mg PO DAILY Rx Instructions: take with 37.5 mg capsule pioglitazone 15 mg tablet 15 mg PO DAILY venlafaxine 37.5 mg capsule,extended release 24hr 37.5 mg PO DAILY Rx Instructions: take with 150 mg capsule amlodipine 10 mg tablet 5 mg PO DAILY ipratropium bromide 21 mcg (0.03 %) spray,non-aerosol 2 spray intranasal BID acetaminophen 500 mg Tablet 1,000 mg PO BID gabapentin 100 mg capsule 100 mg PO BID Discharge Date/Time: 03/07/23 17:54
== END 2023-03-07 17:54 | disposition left against medical advice (07) ==
PROVIDERS: Emergency Provider Emergency Medicine; PCP Family Medicine
DX: R07.81 Pleurodynia (principal); R06.02 Shortness of breath; Z79.899 Other long term (current) drug therapy; Z79.01 Long term (current) use of anticoagulants
CPT/HCPCS: 71250; 99281; 99284

== ENCOUNTER 2023-06-04 03:58 | Emergency (ER) | payer MEDICARE, SELFPAY ==
[2023-06-04] VITALS (11 sets, daily range): BP systolic 107–163; BP diastolic 51–71; PULSE 71–84; RESP 16–18; TEMP 36.2–37.1; O2SAT 96–100; BMI 34.9
--- NOTE | 2023-06-04 | ECG_ITS ---
Test Reason : FALL Blood Pressure : / mmHG Vent. Rate : 074 BPM Atrial Rate : 074 BPM P-R Int : 230 ms QRS Dur : 158 ms QT Int : 436 ms P-R-T Axes : 082 058 003 degrees QTc Int : 483 ms Sinus rhythm with 1st degree A-V block Right bundle branch block Abnormal ECG When compared with ECG of 11-DEC-2022 11:17, Minimal criteria for Inferior infarct are no longer Present T wave inversion now evident in Inferior leads T wave inversion no longer evident in Anterior leads Referred By: Generic ED Physician Electronically Signed By:YOSELIN BAIRES
--- NOTE | ~2023-06-04 | CT_ITS ---
EXAM: CT HEAD WITHOUT CONTRAST CT CERVICAL SPINE INDICATION: Reason for Exam +head strike, fall TECHNIQUE: A noncontrast CT scan was performed from the skull base to the vertex. A noncontrast CT scan of the cervical spine was performed from the base of the skull through T1 at 2.5 mm and 0.625 mm collimation. Coronal and sagittal reformats were obtained at the acquisition workstation. This CT examination was performed using dose optimization techniques as appropriate, variously including the following: * Automated exposure control * Adjustment of mA and/or kV according to patient size (this includes techniques or standardized protocols for targeted exams where dose is matched to indication/reason for exam; i.e. extremities or head) * Use of iterative reconstruction technique Dose length product is 505 mGy-cm. COMPARISON: None FINDINGS: Head: There is no evidence of acute intracranial hemorrhage or territorial infarction. No abnormal mass effect or midline shift is seen. Shah to white matter differentiation is well preserved. No extra-axial fluid collections are identified. Commensurate prominence of the ventricles and sulci is compatible with generalized parenchymal volume loss. There is periventricular and subcortical white matter hypoattenuation, most likely representing microangiopathic disease . No acute calvarial fracture.. Paranasal sinuses and mastoid air cells are well-aerated. Cervical Spine: The atlantooccipital and atlantoaxial articulations remain well aligned. Straightening of the normal cervical lordosis. Mild anterolisthesis of C3 on C4, C4 on C5. No evidence of acute fracture. Severe arthritis of the anterior arch of C1-dense. Multilevel disc degenerative changes, more prominent changes of severe disc degeneration at C5-6, C6-7, C7-T1. Multilevel posterior disc osteophyte complex protruding into the central canal. Anterior bridging osteophytes at C2-3. Multilevel severe facet degeneration. Chronic heterotopic ossification in the posterior soft tissues. Prevertebral soft tissue swelling. No suspicious thyroid findings. Subcentimeter lymph nodes in the neck. No pneumothorax in the lung apices. CT/CT cervical spine wo IV con IMPRESSION: Head: No CT evidence of acute intracranial hemorrhage or edematous territorial infarction. Chronic changes as detailed above. Cervical spine: No CT evidence of acute fracture. Severe cervical spondylosis.
--- NOTE | ~2023-06-04 | XR_ITS ---
EXAMINATION: XR CHEST CLINICAL INFORMATION: Dizziness COMPARISON: 03/07/2023 TECHNIQUE: Frontal view of the chest was obtained. FINDINGS: Lung volumes are symmetric. No focal consolidation is seen. No evidence of pneumothorax, pleural effusion, or pulmonary edema. Cardiac size is within normal limits. Calcification is present at the aortic arch. Degenerative changes noted in the shoulders and spine. XR/XR chest 1V IMPRESSION: No acute cardiopulmonary findings.
[2023-06-04 04:23] LABS: MANUAL DIFF FLAG NO
[2023-06-04 04:24] LABS: Basophils Percent Auto 0.3 % (0-2); Eosinophils Absolute Auto 0.2 X10*3/uL (0.0-0.4); Eosinophils Percent Auto 2.6 % (0-4); Hematocrit 33.4 % (42.0-52.0); Hemoglobin 10.8 g/dl (14.0-18.0); Imm Gran Abs Auto 0.02 X10*3/uL (0.00-0.03); Imm Gran Pct Auto 0.3 % (0.0-0.4); Lymphocytes Percent Auto 13.9 % (20-40); Mean Corpuscular HGB Conc 32.3 g/dl (31.0-36.0); Mean Corpuscular Hemoglobin 30.9 pg (27.0-33.0); Mean Corpuscular Volume 95.4 fL (80.0-98.0); Mean Platelet Volume 8.7 fL (9.4-12.4); Monocytes Absolute Auto 0.6 X10*3/uL (0.1-1.2); Monocytes Percent Auto 8.2 % (2-11); Neutrophils Absolute Auto 5.1 x10*3/uL (2.0-8.3); Neutrophils Percent Auto 74.7 % (45-73); Platelet Count 112 X10*3/uL (160-400); White Blood Count 6.8 X10*3/uL (4.8-10.8)
[2023-06-04 04:30] LABS: Prothrombin Time 24.9 SEC (11.1-13.3)
[2023-06-04 04:33] LABS: Partial Thromboplastin Time 41.6 SEC (26.0-36.4)
[2023-06-04 04:42] LABS: Alanine Aminotransferase 16 U/L (0-40); Albumin Level 3.8 g/dL (3.5-5.0); Alkaline Phosphatase 78 U/L (39-117); Anion Gap 13 (12-20); Aspartate Amino Transferase 26 U/L (5-37); Bilirubin Total 0.7 mg/dL (0.0-1.0); Blood Urea Nitrogen 28 mg/dL (9-16); Calcium 9.4 mg/dL (8.4-10.2); Carbon Dioxide 22 mmol/L (22-29); Chloride 107 mmol/L (96-108); Creatinine Clr Calc Pharmacy 52.6; Estimated Glomerular Filt Rate 53; Glucose Random 142 mg/dL (60-115); Potassium 4.3 mmol/L (3.3-5.1); Sodium 138 mmol/L (135-145)
[2023-06-04 04:42] LABS: Appearance Urine Clear; Color Urine Yellow; Glucose Urine UA Negative (Negative); Leukocyte Esterase Urine Negative (Negative); Nitrite Urine Negative (Negative); PH 5.5 (5.0-9.0); Specific Gravity - Urine 1.025 (1.005-1.025); UMIC TRIGGER UACC YES; Urine Blood Trace (Negative); Urine Ketones Negative (Negative); Urine Protein Negative (Neg-Trace)
[2023-06-04 04:43] LABS: Troponin-I High Sensitivity 10.4 ng/L (<3.5-35.0)
[2023-06-04 04:49] LABS: Bacteria Urine None Seen (None Seen); RBC Urine 0-2 /HPF (0-2); Squamous Epithelial Cell Urine 0-2 /HPF (0-2); WBC Urine 0-5 /HPF (0-5)
--- NOTE | 2023-06-04 06:38 | ED_ITS ---
HPI - General Adult General Chief complaint: Dizziness Stated complaint: Fall,Dizziness, Time Seen by Provider: 06/04/23 06:33 Source: patient and RN notes reviewed Mode of arrival: ambulatory Limitations: no limitations History of Present Illness HPI narrative: This is a 82-year-old male, with a history of DVTs on Xarelto, cardiac stents, presenting to the emergency department after mechanical fall which occurred last night. Patient reports that approximately 7:00 p.m. he was walking to the bathroom when he slipped and fell backwards on a wet floor and struck his head on ?something?, he believes it was the corner of his bed. He denies loss of consciousness. He states that he was on the ground for approximately 6 hours as his attempted to get him off the floor. They ultimately called the cash reconciliation specialist to help pick him up and bring him to be medically evaluated. Patient states that since the fall he has had dizziness only with ambulation, and has been unable to walk due to the dizziness. Denies any weakness. He states that he felt well prior to the fall. Denies any chest pain or shortness of breath. He states that he has a history of vertigo, he was in the rehabilitation center for 3 months last summer due to this. No other complaints or concerns at this time. MD complaint: Fall Onset (ago): hour(s) Radiation: non-radiation Quality: aching Pain Consistency: constant Relieving factors: none Exacerbating factors: none Associated symptoms: denies other symptoms Treatments prior to arrival: none Related Data Home Medications Medication Instructions Recorded Confirmed atenolol 25 mg tablet 1 tab PO DAILY 05/27/21 06/04/23 donepezil 10 mg tablet 1 tab PO BEDTIME 05/27/21 06/04/23 insulin glargine 100 unit/mL 30 unit subcut DAILY 05/27/21 06/04/23 subcutaneous solution (Lantus U-100 Insulin) rivaroxaban 20 mg tablet (Xarelto) 1 tab PO DAILY@1700 05/27/21 06/04/23 atorvastatin 40 mg tablet 40 mg PO DAILY 10/20/22 06/04/23 sitagliptin phosphate 100 mg 100 mg PO DAILY 10/20/22 06/04/23 tablet (Januvia) venlafaxine 150 mg 150 mg PO DAILY 10/20/22 06/04/23 capsule,extended release 24 hr gabapentin 100 mg capsule 100 mg PO BID 12/11/22 06/04/23 acetaminophen 500 mg tablet 1,000 mg PO BID Pain 06/04/23 06/04/23 amlodipine 10 mg tablet 5 mg PO DAILY 06/04/23 06/04/23 ipratropium bromide 21 mcg (0.03 2 spray intranasal BID 06/04/23 06/04/23 %) nasal spray pioglitazone 15 mg tablet 15 mg PO DAILY 06/04/23 06/04/23 venlafaxine 37.5 mg 37.5 mg PO DAILY 06/04/23 06/04/23 capsule,extended release 24 hr Allergies Allergy/AdvReac Type Severity Reaction Status Date / Time No Known Allergies Allergy Verified 03/07/23 15:35 Review of Systems 2 Review of Systems: Yes all other systems are reviewed and are negative Constitutional: Constitutional: Reports as per [facility] Past Medical History Attestation statement: The following information was validated with the patient. Social History Social History Alcohol intake: never Patient Tobacco Use Status: Never used Tobacco Advance Directives: No Advance Directives Information Provided: No Physical Exam ED Vital Signs: Vital Signs - 24 hr 06/04/23 04:11 06/04/23 05:54 06/04/23 08:49 Temperature 98.7 F 98.4 F 98.2 F Pulse Rate 73 75 80 Respiratory Rate 18 16 16 Blood Pressure 136/59 L 152/58 H 145/67 H Pulse Oximetry 97 96 100 Oxygen Delivery Method Room Air Room Air Room Air 06/04/23 09:57 06/04/23 09:58 06/04/23 10:00 Temperature 97.2 F Pulse Rate 75 84 71 Respiratory Rate 16 Blood Pressure 145/68 H 107/51 L 163/71 H Pulse Oximetry 99 Oxygen Delivery Method Room Air 06/04/23 15:00 06/04/23 15:18 06/04/23 15:21 Temperature 98.0 F Pulse Rate 73 81 79 Respiratory Rate 16 Blood Pressure 146/61 H 138/64 143/67 H Pulse Oximetry 100 Oxygen Delivery Method Room Air 06/04/23 15:22 Temperature Pulse Rate 84 Respiratory Rate Blood Pressure 142/66 H Pulse Oximetry Oxygen Delivery Method BMI result Body Mass Index 34.9 Const General: cooperative, comfortable and no acute distress Orientation/consciousness: patient oriented x3 Limitations: no limitations HENMT Other: Left occiput with hematoma noted, no skull step-off or deformity. Head: Yes normal to inspection and Yes normocephalic Ears: hearing grossly normal bilaterally General nose exam: Normal external nose present Face and sinus: Yes normal facial exam Mouth: Normal oral and palatal mucosa present, oropharynx normal and moist mucous membranes Throat: Yes posterior oropharynx normal Eyes General: appearance normal, both eyes and all related structures Eyelids: Yes eyelids normal Conjunctivae: conjunctivae normal Sclerae: sclerae normal Pupils: Equal, round and reactive pupils present EOM: EOMs intact bilaterally Neck Neck: Yes normal visual inspection, Yes full ROM and Yes no lymphadenopathy Lymphatic: no lymphadenopathy noted Chest Chest palpation & inspection: normal inspection of the chest and normal palpation of entire chest wall Resp Effort & Inspection: normal respiratory effort and able to speak in complete sentences Auscultation: clear to auscultation bilaterally, no crackles, no rales, no rhonchi and no wheezes Cardio Rate: regular rate Rhythm: regular rhythm Heart sounds: S1 normal heart sound present and S2 normal heart sound present GI Other: Abdomen is soft nontender, + 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 Neuro General: patient oriented x3 and moves all extremities Cranial nerves: Yes CN's II-XII intact bilaterally and Yes Equal, round and reactive pupils present Motor exam (neuro): 5/5 motor strength present throughout and Pronator motor function not present Coordination: [id number] test normal Romberg Test: Negative Extrem Other: Chronic venous stasis changes to the lower extremities, no calf tenderness. Upper and lower extremity strength 5/5. General: Yes normal to inspection Right upper extremity: normal to inspection Left upper extremity: normal to inspection Right lower extremity: normal to inspection Left lower extremity: normal to inspection NIH Stroke Scale Internal: Initial- Upon Arrival Level of Consciousness: Alert Level of Consciousness Questions: Answers both questions correctly Level of Consciousness Commands: Performs both tasks correctly Best Gaze: Normal Visual: No visual loss Facial Palsy: Normal Motor Arm (Right): No drift Motor Arm (Left): No drift Motor Leg (Right): No drift Motor Leg (Left): No drift Limb Ataxia: Absent Sensory: Normal Best Language: No aphasia Dysarthia: Normal Extinction and Inattention: No abnormality Score: 0 Course Reevaluation(s) Reevaluation #1: CT head and CT cervical spine without any acute findings. Patient is orthostatic. Patient not steady on his feet, will need to be seen and evaluated by Physical therapy. Patient medicated with 1 L of IV fluids. Time: 10:06 Reevaluation #2: Patient has been resting comfortably, was medicated with 1 L of IV fluids, patient is no longer orthostatic. He still has some dizziness, will be evaluated by PT and Case Management in the morning for evaluation. Patient is agreeable for staying the night to be seen by them. Patient given sign out to my colleague, Jaskaran Hayward pending PT/CM disposition Time: 16:56 Medications Administered Discontinued Medications Generic Name Dose Route Start Last Admin Trade Name Freq PRN Reason Stop Dose Admin Sodium Chloride 1,000 mls @ 999 mls/hr 06/04/23 13:00 06/04/23 15:50 Ns IV 06/04/23 14:00 Infused .Q1H1M ONE Infusion Procedures Procedure Narrative Procedure Narrative: Left elbow skin tear was cleansed with Betadine and saline, wound well approximated with for Steri-Strips. Patient tolerated procedure well without any complications or concerns. Patient had punctate active knee bleeding scalp laceration, which was closed with Dermabond. Patient tolerated procedure well. Medical Decision Making Medical Decision Making MDM Narrative: 82-year-old male presenting to the emergency department for evaluation of mechanical fall which occurred last night at 7:00 p.m.. Patient states that he was walking when he slipped and fell backwards striking his posterior head on the floor. He felt well prior to the fall. No chest pain or shortness of breath. Denies loss of consciousness. He was on the ground for approximately 6 hours as his had difficulty getting him back up. Patient states that since the fall he has had dizziness only with ambulation. Patient had an NIH score of 0. Plan: Labs, CT head, CT cervical spine, UA Differential Diagnosis Differential Diagnoses: The differential diagnosis associated with the presentation includes ICH, subdural hematoma, cervical spine fracture, closed head injury, vertigo Admission/Observation Consideration of admission/observation: Escalation of care including admission/observation considered Escalation of care including admission observation was considered given mechanical fall and dizziness since fall. Lab Data MDM Lab Attestation statement: I reviewed the patient's lab results. H&H stable, around his baseline, BUN 28, urine non infectious. 06/04/23 04:17 06/04/23 04:17 Labs: Lab Results 06/04/23 06/04/23 06/04/23 Range/Units 04:17 04:30 08:22 WBC 6.8 (4.8-10.8) X10*3/uL RBC 3.50 L (4.60-5.80) X10*6/uL Hgb 10.8 L (14.0-18.0) g/dl Hct 33.4 L (42.0-52.0) % MCV 95.4 (80.0-98.0) fL MCH 30.9 (27.0-33.0) pg MCHC 32.3 (31.0-36.0) g/dl RDW 14.0 (11.0-16.0) % Plt Count 112 L D (160-400) X10*3/uL MPV 8.7 L (9.4-12.4) fL Immature Gran % (Auto) 0.3 (0.0-0.4) % Neut % (Auto) 74.7 H (45-73) % Lymph % (Auto) 13.9 L (20-40) % [place] % (Auto) 8.2 (2-11) % Eos % (Auto) 2.6 (0-4) % Baso % (Auto) 0.3 (0-2) % Lymph # (Auto) 1.0 L (1.2-4.9) X10*3/uL [place] # (Auto) 0.6 (0.1-1.2) X10*3/uL Eos # (Auto) 0.2 (0.0-0.4) X10*3/uL Baso # (Auto) 0.0 (0.0-0.2) X10*3/uL Abs Immat Gran (auto) 0.02 (0.00-0.03) X10*3/uL Absolute Neuts (auto) 5.1 (2.0-8.3) x10*3/uL Absolute Nucleated RBC 0.000 (0.0-0.012) X10*3/uL Nucleated RBC % (auto) 0.0 (0.0-0.2) /100WBC PT 24.9 H (11.1-13.3) SEC INR 2.0 H (0.9-1.1) APTT 41.6 H (26.0-36.4) SEC Sodium 138 (135-145) mmol/L Potassium 4.3 (3.3-5.1) mmol/L Chloride 107 (96-108) mmol/L Carbon Dioxide 22 (22-29) mmol/L Anion Gap 13 (12-20) BUN 28 H (9-16) mg/dL Creatinine 1.30 (0.5-1.4) mg/dL Estim Creat Clear Calc 52.6 Estimated GFR 53 Random Glucose 142 H (60-115) mg/dL Calcium 9.4 D (8.4-10.2) mg/dL Total Bilirubin 0.7 (0.0-1.0) mg/dL AST 26 (5-37) U/L ALT 16 (0-40) U/L Alkaline Phosphatase 78 (39-117) U/L Total Creatine Kinase 100 (38-174) U/L Troponin I High Sens 10.4 10.5 (<3.5-35.0) ng/L Total Protein 7.0 (6.5-8.0) g/dL Albumin 3.8 (3.5-5.0) g/dL Urine Color Yellow Urine Appearance Clear Urine pH 5.5 (5.0-9.0) Ur Specific [place] 1.025 (1.005-1.025) Urine Protein Negative (Neg-Trace) mg/dL Urine Glucose (UA) Negative (Negative) mg/dL Urine Ketones Negative (Negative) mg/dL Urine Blood Trace (Negative) Urine Nitrite Negative (Negative) Ur Leukocyte Esterase Negative (Negative) Urine RBC 0-2 (0-2) /HPF Urine WBC 0-5 (0-5) /HPF Ur Squamous Epith Cells 0-2 (0-2) /HPF Urine Bacteria None Seen (None Seen) Hyaline Casts 3-5 (0-2) /LPF Independent Interpretation I performed an independent interpretation of an: EKG Interpretation: Sinus rhythm with first-degree AV block with ventricular rate of 74 bpm, LA interval 230, QTC 483, right bundle branch block noted. Right bundle branch block was also seen on previous EKG performed December 11, 2022. Radiology Impression Discussion of test interpretation with radiology: I have reviewed the radiologist's reading. Radiologist Impression: EXAM: CT HEAD WITHOUT CONTRAST CT CERVICAL SPINE INDICATION: Reason for Exam +head strike, fall TECHNIQUE: A noncontrast CT scan was performed from the skull base to the vertex. A noncontrast CT scan of the cervical spine was performed from the base of the skull through T1 at 2.5 mm and 0.625 mm collimation. Coronal and sagittal reformats were obtained at the acquisition workstation. This CT examination was performed using dose optimization techniques as appropriate, variously including the following: * Automated exposure control * Adjustment of mA and/or kV according to patient size (this includes techniques or standardized protocols for targeted exams where dose is matched to indication/reason for exam; i.e. extremities or head) * Use of iterative reconstruction technique Dose length product is 505 mGy-cm. COMPARISON: None FINDINGS: Head: There is no evidence of acute intracranial hemorrhage or territorial infarction. No abnormal mass effect or midline shift is seen. Shah to white matter differentiation is well preserved. No extra-axial fluid collections are identified. Commensurate prominence of the ventricles and sulci is compatible with generalized parenchymal volume loss. There is periventricular and subcortical white matter hypoattenuation, most likely representing microangiopathic disease . No acute calvarial fracture.. Paranasal sinuses and mastoid air cells are well-aerated. Cervical Spine: The atlantooccipital and atlantoaxial articulations remain well aligned. Straightening of the normal cervical lordosis. Mild anterolisthesis of C3 on C4, C4 on C5. No evidence of acute fracture. Severe arthritis of the anterior arch of C1-dense. Multilevel disc degenerative changes, more prominent changes of severe disc degeneration at C5-6, C6-7, C7-T1. Multilevel posterior disc osteophyte complex protruding into the central canal. Anterior bridging osteophytes at C2-3. Multilevel severe facet degeneration. Chronic heterotopic ossification in the posterior soft tissues. Prevertebral soft tissue swelling. No suspicious thyroid findings. Subcentimeter lymph nodes in the neck. No pneumothorax in the lung apices. CT/CT cervical spine wo IV con IMPRESSION: Head: No CT evidence of acute intracranial hemorrhage or edematous territorial infarction. Chronic changes as detailed above. Cervical spine: No CT evidence of acute fracture. Severe cervical spondylosis. Dictated By: Erik Peters MD Discharge Plan Discharge Clinical Impression: Fall, Dizziness, Skin tear of left elbow without complication, Scalp abrasion Patient Disposition: Still a Patient Additional Instructions: You presented to the emergency department after having a fall. Your head CT and neck CT do not show any new injuries. Your labs were reassuring. Please continue taking all at home medications. Please follow Case Management and Physical therapy recommendations. If any new or worsening symptoms occur including but not limited to worsening dizziness, headaches, chest pain or shortness of breath, please return for re- evaluation. We applied Steri-Strips to your left elbow, allow the Steri-Strips to fall off on their own. You may shower, do not submerge wound. Do not pick at the wound. Watch for any new or worsening symptoms of infection including redness, swelling, fevers or chills. I also applied skin glue to the top of your head as you appear to scratch her head causing it to bleed. Please do not pick at this wound. Last skin glue to fall off on its own. Prescriptions: No Action donepezil 10 mg tablet 1 tab PO BEDTIME atenolol 25 mg tablet 1 tab PO DAILY Xarelto 20 mg tablet 1 tab PO DAILY@1700 insulin glargine [Lantus U-100 Insulin] 100 unit/mL Solution 30 unit SUBCUT DAILY atorvastatin 40 mg tablet 40 mg PO DAILY Januvia 100 mg tablet 100 mg PO DAILY venlafaxine 150 mg capsule,extended release 24hr 150 mg PO DAILY Rx Instructions: take with 37.5 mg capsule pioglitazone 15 mg tablet 15 mg PO DAILY venlafaxine 37.5 mg capsule,extended release 24hr 37.5 mg PO DAILY Rx Instructions: take with 150 mg capsule amlodipine 10 mg tablet 5 mg PO DAILY ipratropium bromide 21 mcg (0.03 %) spray,non-aerosol 2 spray intranasal BID acetaminophen 500 mg Tablet 1,000 mg PO BID gabapentin 100 mg capsule 100 mg PO BID
[2023-06-04 08:47] LABS: Troponin-I High Sensitivity 10.5 ng/L (<3.5-35.0)
--- NOTE | 2023-06-04 08:52 | PC.NURSE ---
Pt reports 3/10 pain in head, skin tare to left elbow, cleaned with NS and DCD applied.Pt in no apparent distress. Colostomy bag noted, stool present, site intact. Neuros intact. urinal at bedside
--- NOTE | 2023-06-04 11:00 | PC.NURSE ---
Ambulation trial with walker failed, Pt was dizzy and unsteady, Provider aware, Plan to have PT eval in the AM.
--- NOTE | 2023-06-04 11:28 | PHA.MEDREC ---
Addendum entered by Kristan Sandoval RPh 06/04/23 11:44: Reviewed pdmp regarding gabapentin and only see fill history for december 2022 at once daily. Family of patient states [facility] and takes bid. Original Note: Pharmacy Consult ? Medication Reconciliation Pharmacy has completed the medication reconciliation. Spoke to patient's family member to confirm meds.
[2023-06-04] MEDS: 0.9 % Sodium Chloride 1,000 ML 999 ML IV (13:10)
--- NOTE | 2023-06-04 15:50 | PC.NURSE ---
Addendum entered by Jazmín Calvo 06/04/23 15:55: steri strips placed by Mary Jane FU Original Note: Pt feeling better, states less dizzy s/p fluid bolus. Small open area top of bleeding, cleaned and bleeding controlled. Ate lunch well. Using urinal as needed.
[2023-06-04] MEDS: Rivaroxaban 20 MG TABLET PO (18:38)
[2023-06-04] MEDS: Donepezil HCl 10 MG TABLET PO (22:07)
[2023-06-04] MEDS: Acetaminophen 325 MG TABLET 975 MG PO (22:07)
[2023-06-04] MEDS: Gabapentin 100 MG CAPSULE PO (22:07)
[2023-06-04] MEDS: Ipratropium Bromide Nas 0.03 % 30 ML SPRAY 2 SPRAY NOSTRIL-B (22:40)
[2023-06-05 01:27] VITALS: BP 139/64; PULSE 81; RESP 16; TEMP 37.2; O2SAT 97
--- NOTE | 2023-06-05 02:09 | PC.NURSE ---
pt resting comfortably with eyes closed, breathing even and unlabored. no apparent distress at this time.
--- NOTE | 2023-06-05 07:13 | PC.NURSE ---
skin tear to L elbow opened, wound redressed, bed changed
[2023-06-05 08:38] VITALS: BP 172/71; PULSE 70; RESP 16; TEMP 36.5; O2SAT 99
[2023-06-05] MEDS: atenoloL 25 MG TABLET PO (08:42)
[2023-06-05] MEDS: Acetaminophen 325 MG TABLET 975 MG PO ×2 (08:42→21:33)
[2023-06-05] MEDS: Insulin Glargine,Hum.rec.anlog 100 UNIT/ML 10 ML VIAL 30 UNIT SUBCUT (08:42)
[2023-06-05] MEDS: Gabapentin 100 MG CAPSULE PO ×2 (08:43→21:33)
[2023-06-05] MEDS: Ipratropium Bromide Nas 0.03 % 30 ML SPRAY 2 SPRAY NOSTRIL-B ×2 (08:43→21:33)
[2023-06-05] MEDS: Atorvastatin Calcium 40 MG TABLET PO (08:43)
[2023-06-05] MEDS: Venlafaxine HCl ER 37.5 MG CAP.ER.24H PO (08:43)
[2023-06-05] MEDS: amLODIPine Besylate 5 MG TABLET PO (08:43)
[2023-06-05] MEDS: Venlafaxine HCl ER 150 MG CAP.ER.24H PO (08:43)
--- NOTE | 2023-06-05 09:12 | PC.NURSE ---
patient alert and oriented, respirations even and unlabored. ate breakfast, medicated per the MAR. small skin tear to left elbow, re-wrapped due to bleeding, bleeding now controlled at this point. IV removed from right arm.
[2023-06-05 10:19] VITALS: BP 172/71; PULSE 70; O2SAT 99
[2023-06-05] MEDS: SITagliptin Phosphate 100 MG TABLET PO (10:28)
--- NOTE | 2023-06-05 10:33 | PC.NURSE ---
patient was ambulating with physical therapy when he began to feel dizzy, was placed in a chair and back into bed. dizziness has since resolved, patient aware that he will be awaiting case management and short term rehab. continues to rest comfortably and offering no complaints with call silva in reach
[2023-06-05] MEDS: Rivaroxaban 20 MG TABLET PO (18:57)
[2023-06-05 18:59] VITALS: BP 150/64; PULSE 62; RESP 16; TEMP 36.6; O2SAT 99
--- NOTE | 2023-06-05 19:14 | PC.NURSE ---
patient's bandage re-wrapped. medicated per the MAR, lights dimmed for patient to try to rest, call silva within reach
[2023-06-05] MEDS: Donepezil HCl 10 MG TABLET PO (21:33)
[2023-06-06 02:49] VITALS: BP 162/62; PULSE 61; RESP 15; O2SAT 99
--- NOTE | 2023-06-06 04:20 | MHC.EDTECH ---
Pt stated he needed his colostomy bag emptied. T/w assisted with this. Pt cleaned up and warm blankets given per request. Lights off, call silva within reach.
[2023-06-06 08:37] VITALS: BP 173/70; PULSE 65; RESP 16; TEMP 36.6; O2SAT 98
[2023-06-06] MEDS: Insulin Glargine,Hum.rec.anlog 100 UNIT/ML 10 ML VIAL 30 UNIT SUBCUT (08:40)
[2023-06-06] MEDS: Ipratropium Bromide Nas 0.03 % 30 ML SPRAY 2 SPRAY NOSTRIL-B ×2 (08:41→20:26)
[2023-06-06] MEDS: Gabapentin 100 MG CAPSULE PO ×2 (08:41→20:26)
[2023-06-06] MEDS: Venlafaxine HCl ER 37.5 MG CAP.ER.24H PO (08:41)
[2023-06-06] MEDS: Acetaminophen 325 MG TABLET 975 MG PO ×2 (08:41→20:26)
[2023-06-06] MEDS: atenoloL 25 MG TABLET PO (08:41)
[2023-06-06] MEDS: Atorvastatin Calcium 40 MG TABLET PO (08:41)
[2023-06-06] MEDS: Venlafaxine HCl ER 150 MG CAP.ER.24H PO (08:41)
[2023-06-06] MEDS: amLODIPine Besylate 5 MG TABLET PO (08:41)
[2023-06-06 08:49] LABS: Glucose, Whole Blood 196 mg/dL (60-115)
[2023-06-06] MEDS: SITagliptin Phosphate 100 MG TABLET PO (09:14)
[2023-06-06 09:41] LABS: COVID-19 Test Negative (Negative); IDNOW Serial# BCCEAD1C
--- NOTE | 2023-06-06 10:40 | MHC.CM.ED ---
Received case management consult from ER provider. Patient came to the ER due to falls and dizziness. Work up essentially negative. Physical therapy eval completed. Short term rehab is recommended. Met with patient in regards to discharge planning. Patient lives with his , uses a walker for mobility and had no services prior to coming to the ER. PCP verified. Copy of HCP verified to be on file. Patient has been to [facility] in the past. Patient requesting referrals to both facilities with [facility] being first choice. Referrals made via [facility]. [facility] is able to offer a bed. Patient accepts bed. [facility] has been asked to obtain insurance auth. Continue to monitor for d/c needs.
[2023-06-06 14:52] VITALS: BP 138/61; PULSE 62; RESP 16; TEMP 36.7; O2SAT 99
[2023-06-06] MEDS: Rivaroxaban 20 MG TABLET PO (16:18)
--- NOTE | 2023-06-06 19:29 | PC.NURSE ---
Ostomy bag emptied of brown firm and liquid feces. Pt tolerated well.
[2023-06-06 20:25] VITALS: BP 166/56; PULSE 65; RESP 20; O2SAT 98
[2023-06-06] MEDS: Donepezil HCl 10 MG TABLET PO (20:26)
[2023-06-07 01:26] VITALS: BP 150/64; PULSE 64; RESP 20; TEMP 36.6; O2SAT 99
--- NOTE | 2023-06-07 01:37 | PC.NURSE ---
Pt colostomy changed, urinal emptied, pt positioned, pt denies any pain at this time. Pt resting in bed, no sign of distress at this time.
--- NOTE | 2023-06-07 06:40 | PC.NURSE ---
pt reposition, emptied colostomy bag.
[2023-06-07] MEDS: Ipratropium Bromide Nas 0.03 % 30 ML SPRAY 2 SPRAY NOSTRIL-B (09:09)
[2023-06-07] MEDS: Atorvastatin Calcium 40 MG TABLET PO (09:10)
[2023-06-07] MEDS: Venlafaxine HCl ER 150 MG CAP.ER.24H PO (09:10)
[2023-06-07] MEDS: amLODIPine Besylate 5 MG TABLET PO (09:10)
[2023-06-07] MEDS: SITagliptin Phosphate 100 MG TABLET PO (09:10)
[2023-06-07] MEDS: Gabapentin 100 MG CAPSULE PO (09:10)
[2023-06-07] MEDS: Venlafaxine HCl ER 37.5 MG CAP.ER.24H PO (09:10)
[2023-06-07] MEDS: atenoloL 25 MG TABLET PO (09:10)
[2023-06-07] MEDS: Acetaminophen 325 MG TABLET 975 MG PO (09:10)
--- NOTE | 2023-06-07 09:10 | MHC.CM.ED ---
Patient remains in ER. Insurance auth has been obtained by [facility]. Patient can leave at 12pm. Patient, Janina TAYLOR and Layne FU aware. Spoke with patient's son, Mega, via telephone at [phone]. Mega aware of d/c plan. Continue to monitor for d/c needs.
[2023-06-07] MEDS: Insulin Glargine,Hum.rec.anlog 100 UNIT/ML 10 ML VIAL 30 UNIT SUBCUT (09:11)
[2023-06-07 12:03] VITALS: BP 173/78; PULSE 74; RESP 18; TEMP 36.2; O2SAT 98
--- NOTE | 2023-06-07 12:17 | PC.NURSE ---
Report to Bertha at [facility]
== END 2023-06-07 12:32 | disposition skilled nursing facility (03) ==
PROVIDERS: Physician Assistant Medical; Emergency Provider Emergency Medicine; PCP Family Medicine
DX: S00.01XA Abrasion of scalp, initial encounter (principal); S50.312A Abrasion of left elbow, initial encounter; W01.10XA Fall on same level from slipping, tripping and stumbling with subsequent striking against unspecified object, initial encounter; Y93.9 Activity, unspecified; Y92.9 Unspecified place or not applicable; Y99.9 Unspecified external cause status; R42 Dizziness and giddiness; Z11.52 Encounter for screening for COVID-19; Z79.899 Other long term (current) drug therapy
CPT/HCPCS: 36415; 70450; 71045; 72125; 80053; 81001; 82550; 82947; 84484; 85025; 85610; 85730; 87635; 93005; 96360; 96361; 97162; 99285

== ENCOUNTER → 2023-06-04 04:36 | Outpatient (BNV) | payer MEDICARE, SELFPAY | PROVIDERS: Emergency Provider Emergency Medicine; PCP Family Medicine; Visit Provider Internal Medicine | DX: I44.0 Atrioventricular block, first degree (principal); R94.31 Abnormal electrocardiogram [ECG] [EKG] | CPT/HCPCS: 93010 ==

== ENCOUNTER 2023-10-09 23:35 | Inpatient (IN) | payer MEDICARE, SELFPAY ==
--- NOTE | 2023-10-09 | ECG_ITS ---
Test Reason : FALL Blood Pressure : / mmHG Vent. Rate : 066 BPM Atrial Rate : 066 BPM P-R Int : 194 ms QRS Dur : 144 ms QT Int : 488 ms P-R-T Axes : 088 059 008 degrees QTc Int : 511 ms Normal sinus rhythm Right bundle branch block Abnormal ECG When compared with ECG of 04-JUN-2023 04:36, FL interval has decreased Referred By: Generic ED Physician Electronically Signed By:[place]
--- NOTE | ~2023-10-09 | CT_ITS ---
EXAMINATION: CT HEAD WITHOUT CONTRAST CT CERVICAL SPINE WITHOUT CONTRAST CLINICAL INFORMATION: Fall. Pain. COMPARISON: None available. TECHNIQUE: Contiguous axial imaging was performed through the head and cervical spine without intravenous administration of contrast. Sagittal and coronal reformatted images obtained. This CT examination was performed using dose optimization techniques as appropriate, variously including the following: *Automated exposure control *Adjustment of mA and/or kV according to patient size (this includes techniques or standardized protocols for targeted exams where dose is matched to indication/reason for exam; i.e. extremities or head) *Use of iterative reconstruction technique DLP: 1368 mGy-cm FINDINGS: There is cerebral volume loss with prominence of the lateral and the third ventricles. The cortical sulci are widened appropriately. The fourth ventricle and basal cisterns are normally outlined. There is extensive bilateral periventricular and central white matter diminished attenuation. There is no acute territorial defect, hemorrhage or midline shift. The extra-axial spaces are unremarkable. Calvarium: Intact. Maxillofacial sinuses and mastoids clear as visualized. Cervical spine: Motion slightly limits evaluation. The alignment is within normal limits. There is diffuse zvqb-ar-oeyrvbbo cervical disc degenerative change most pronounced at C5-C6, C6-C7 and C7-T1 with loss of disc space, endplate change and posterior osteophytes associated with diffuse mild to moderate facet osteoarthritic hypertrophic change with multilevel sqpl-ll-wsofgqpa spinal canal and neuroforaminal narrowing. The bony structures are heterogeneous/osteopenic. No fracture is seen. The soft tissues are unremarkable. The visualized upper lung rincon are clear. CT/CT head/brain wo IV con IMPRESSION: 1. No acute intracranial process seen. 2. Moderate cerebral volume loss with chronic small vessel ischemic changes. 3. There is no acute fracture, dislocation or subluxation seen in the cervical spine. There are degenerative disc changes and facet joint arthropathy as described above.
--- NOTE | ~2023-10-09 | CT_ITS ---
EXAMINATION: CT HEAD WITHOUT CONTRAST CT CERVICAL SPINE WITHOUT CONTRAST CLINICAL INFORMATION: Fall. Pain. COMPARISON: None available. TECHNIQUE: Contiguous axial imaging was performed through the head and cervical spine without intravenous administration of contrast. Sagittal and coronal reformatted images obtained. This CT examination was performed using dose optimization techniques as appropriate, variously including the following: *Automated exposure control *Adjustment of mA and/or kV according to patient size (this includes techniques or standardized protocols for targeted exams where dose is matched to indication/reason for exam; i.e. extremities or head) *Use of iterative reconstruction technique DLP: 1368 mGy-cm FINDINGS: There is cerebral volume loss with prominence of the lateral and the third ventricles. The cortical sulci are widened appropriately. The fourth ventricle and basal cisterns are normally outlined. There is extensive bilateral periventricular and central white matter diminished attenuation. There is no acute territorial defect, hemorrhage or midline shift. The extra-axial spaces are unremarkable. Calvarium: Intact. Maxillofacial sinuses and mastoids clear as visualized. Cervical spine: Motion slightly limits evaluation. The alignment is within normal limits. There is diffuse msbr-zr-kqamsqme cervical disc degenerative change most pronounced at C5-C6, C6-C7 and C7-T1 with loss of disc space, endplate change and posterior osteophytes associated with diffuse mild to moderate facet osteoarthritic hypertrophic change with multilevel gsdh-lk-xareyfmm spinal canal and neuroforaminal narrowing. The bony structures are heterogeneous/osteopenic. No fracture is seen. The soft tissues are unremarkable. The visualized upper lung rincon are clear. CT/CT cervical spine wo IV con IMPRESSION: 1. No acute intracranial process seen. 2. Moderate cerebral volume loss with chronic small vessel ischemic changes. 3. There is no acute fracture, dislocation or subluxation seen in the cervical spine. There are degenerative disc changes and facet joint arthropathy as described above.
[2023-10-09 23:45] VITALS: BP 128/75; PULSE 64; O2SAT 99
[2023-10-09 23:46] VITALS: BP 136/52; PULSE 68; RESP 18; TEMP 36.6; O2SAT 99; BMI 39.5
[2023-10-10] VITALS (13 sets, daily range): BP systolic 113–151; BP diastolic 40–72; PULSE 66–94; RESP 13–18; TEMP 36.2–36.8; O2SAT 97–99
[2023-10-10 00:22] LABS: MANUAL DIFF FLAG NO
[2023-10-10 00:24] LABS: Basophils Percent Auto 0.3 % (0-2); Eosinophils Percent Auto 0.1 % (0-4); Hematocrit 31.6 % (42.0-52.0); Hemoglobin 10.3 g/dl (14.0-18.0); Imm Gran Abs Auto 0.09 X10*3/uL (0.00-0.03); Imm Gran Pct Auto 0.7 % (0.0-0.4); Lymphocytes Percent Auto 7.2 % (20-40); Mean Corpuscular HGB Conc 32.6 g/dl (31.0-36.0); Mean Corpuscular Hemoglobin 32.1 pg (27.0-33.0); Mean Corpuscular Volume 98.4 fL (80.0-98.0); Mean Platelet Volume 9.4 fL (9.4-12.4); Monocytes Absolute Auto 0.6 X10*3/uL (0.1-1.2); Monocytes Percent Auto 4.5 % (2-11); Neutrophils Absolute Auto 11.9 x10*3/uL (2.0-8.3); Neutrophils Percent Auto 87.2 % (45-73); Platelet Count 138 X10*3/uL (160-400); Red Blood Count 3.21 X10*6/uL (4.60-5.80); Red Cell Distribution Width 13.1 % (11.0-16.0); White Blood Count 13.7 X10*3/uL (4.8-10.8)
[2023-10-10 01:11] LABS: Alanine Aminotransferase 17 U/L (0-40); Albumin Level 3.5 g/dL (3.5-5.0); Alkaline Phosphatase 78 U/L (39-117); Anion Gap 15 (12-20); Aspartate Amino Transferase 19 U/L (5-37); Bilirubin Total 0.7 mg/dL (0.0-1.0); Blood Urea Nitrogen 33 mg/dL (9-16); Calcium 9.5 mg/dL (8.4-10.2); Carbon Dioxide 23 mmol/L (22-29); Chloride 105 mmol/L (96-108); Creatinine Clr Calc Pharmacy 55.3; Estimated Glomerular Filt Rate 56; Glucose Random 361 mg/dL (60-115); Potassium 5.4 mmol/L (3.3-5.1); Sodium 138 mmol/L (135-145); Total Protein 6.3 g/dL (6.5-8.0)
[2023-10-10 04:54] LABS: Glucose, Whole Blood 293 mg/dL (60-115)
--- NOTE | 2023-10-10 05:43 | ECG_ITS ---
Test Reason : ELEVATED TROP Blood Pressure : / mmHG Vent. Rate : 083 BPM Atrial Rate : 083 BPM P-R Int : 224 ms QRS Dur : 150 ms QT Int : 442 ms P-R-T Axes : 083 052 011 degrees QTc Int : 519 ms Sinus rhythm with 1st degree A-V block Right bundle branch block Abnormal ECG When compared with ECG of 09-OCT-2023 23:51, IA interval has increased Inverted T waves have replaced nonspecific T wave abnormality in Anterior leads Referred By: Shanell Coelho Electronically Signed By:[place]
--- NOTE | 2023-10-10 05:50 | ED.FALL ---
HPI - Fall General Chief Complaint: Fall Stated Complaint: fall and dizziness Time Seen by Provider: 10/10/23 06:29 Source: patient Mode of arrival: EMS Limitations: no limitations History of Present Illness HPI Narrative: Patient comes in the emergency room complaining of a fall. Patient states that he does have history of orthostatic hypotension. Today, patient went to the bathroom, emptied his colostomy back and when he was on his way back to his room, patient fell. Patient states that he did not hit his head, did not lose consciousness. Patient states that he has not on blood thinners, although his home medications have Xarelto listed. Patient's tried helping him up but could not help him so he stayed on the floor for approximately 1/2 hour and then EMS arrived and brought him to the emergency room. Patient states that he has no chest pain or shortness of breath. Otherwise feels well. Related Data Home Medications ?Medication ?Instructions ?Recorded ?Confirmed atenolol 25 mg tablet 1 tab PO DAILY 05/27/21 06/04/23 donepezil 10 mg tablet 1 tab PO BEDTIME 05/27/21 06/04/23 insulin glargine 100 unit/mL 30 unit subcut DAILY 05/27/21 06/04/23 subcutaneous solution (Lantus U-100 Insulin) rivaroxaban 20 mg tablet (Xarelto) 1 tab PO DAILY@1700 05/27/21 06/04/23 atorvastatin 40 mg tablet 40 mg PO DAILY 10/20/22 06/04/23 sitagliptin phosphate 100 mg 100 mg PO DAILY 10/20/22 06/04/23 tablet (Januvia) venlafaxine 150 mg 150 mg PO DAILY 10/20/22 06/04/23 capsule,extended release 24 hr gabapentin 100 mg capsule 100 mg PO BID 12/11/22 06/04/23 acetaminophen 500 mg tablet 1,000 mg PO BID Pain 06/04/23 06/04/23 amlodipine 10 mg tablet 5 mg PO DAILY 06/04/23 06/04/23 ipratropium bromide 21 mcg (0.03 2 spray intranasal BID 06/04/23 06/04/23 %) nasal spray pioglitazone 15 mg tablet 15 mg PO DAILY 06/04/23 06/04/23 venlafaxine 37.5 mg 37.5 mg PO DAILY 06/04/23 06/04/23 capsule,extended release 24 hr Allergies Allergy/AdvReac Type Severity Reaction Status Date / Time No Known Allergies Allergy Verified 10/09/23 23:48 Review of Systems Review of Systems: Constitutional : No Weight loss, No Fever, No Chills, No Night Sweats, No Fatigue, No Malaise ENT/Mouth : No Hearing loss, No Ear Pain, No Nasal Congestion, No Sinus Pain, No Hoarseness, No sore throat, No Rhinorrhea, No Swallowing Difficulty Eyes: No Eye Pain, No Swelling, No Redness, No Foreign Body, No Discharge, No Vision Changes Cardiovascular : Patient complaining of orthostatic hypotension, No Chest Pain, No SOB, No Dyspnea on Exertion, No Orthopnea, No Edema, No Palpitations Respiratory : No Cough, No Sputum, No Wheezing, No Smoke Exposure, No Dyspnea Gastrointestinal : No Nausea, No Vomiting, No Diarrhea, No Constipation, No abdominal Pain, No Hematochezia, No Melena Genitourinary : no irregular bleeding, No Dysuria, No Urinary Frequency, No Hematuria, No Urinary Incontinence, No Urgency, No Flank Pain, No Urinary Flow Changes, No Hesitancy Musculoskeletal : No joint pain, No Myalgias, No Joint Swelling Skin : No Skin Lesions, No rash Neuro : No Weakness, No Numbness, No Paresthesias, No Loss of Consciousness, No Dizziness, No Headache Psych : No Anxiety/Panic, No Depression, No SI/HI/AH/VH, No Social Issues, Heme/Lymph: No Bruising, No Bleeding,No Lymphadenopathy Endocrine : No Polyuria, No Polydipsia, No Temperature Intolerance [facility] Social History Social History Alcohol intake: never Patient Tobacco Use Status: Never used Tobacco Smoked in Last 30 Days: No Use of substances other than those prescribed or required for medical reasons: No Advance Directives: Yes Advance Directives on File: Yes Advance Directives Date on File: 12/12/22 Physical Exam Vital Signs: Vital Signs: Last Vital Signs Temp 97.8 F 10/10/23 10:24 Pulse 94 10/10/23 11:32 Resp 17 10/10/23 10:24 BP 119/61 10/10/23 11:32 Pulse Ox 99 10/10/23 10:24 O2 Del Method Room Air 10/10/23 10:24 BMI result Body Mass Index 39.5 Const: Other: Appearance: Alert. Oriented X3. No acute distress. Eyes: Pupils equal, round and reactive to light. ENT: Pharynx normal. Neck: Normal inspection. Neck supple. No lymph nodes noted. No crepitus CVS: Normal heart rate and rhythm. Pulses normal. Normal S1 and S2 Respiratory: No respiratory distress. Breath sounds normal. No Wheezing. No rales Abdomen: Soft and nontender. No rigidity. No distention. Skin: Skin warm and dry. Normal skin color. Normal skin turgor. Extremities: No lower extremity edema. No Lacerations. No Rash Neuro: Oriented X 3. No motor deficit. No sensory deficit. Moving all extremities. No slurred speech. CN 2 through 12 grossly intact Psych: calm, cooperative, normal affect Course Reevaluation(s) Reevaluation #1: patient remains orthostatic, nearly fell with BP in 70s, will send UA and hydrate. Glucose resisitant to insulin. Time: 11:54 Medications Administered Discontinued Medications Generic Name Dose Route Start Last Admin Trade Name Freq PRN Reason Stop Dose Admin Sodium Chloride 1,000 mls @ 999 mls/hr 10/10/23 06:00 10/10/23 09:26 Ns IVCONT 10/10/23 07:00 Infused .Q1H1M ONE Infusion Insulin Glargine 30 unit 10/10/23 09:30 10/10/23 09:52 Insulin Glargine,Hum.Rec.Anlog 100 Unit/Ml 10 Ml Vial SUBCUT 10/10/23 09:31 30 unit ONCE ONE Administration Insulin Human Lispro 8 unit 10/10/23 09:30 10/10/23 09:50 Insulin Lispro 100 Unit/Ml 3 Ml Vial SUBCUT 10/10/23 09:31 8 unit ONCE ONE Administration Insulin Human Regular 10 unit 10/10/23 05:58 10/10/23 06:15 Insulin Regular, Human 100 Unit/Ml 3 Ml Vial IVPUSH 10/10/23 05:59 10 unit ONCE ONE Administration Medical Decision Making Medical Decision Making [facility] Narrative: My interpretation of EKG 1., normal sinus rhythm, heart rate 66, right bundle branch block, QTC 411, nonspecific ST segment elevation in lead 3 -my interpretation of EKG 2, no significant changes from the 1st EKG. -my interpretation of labs: White blood cell count 13.7, likely reactive leukocytosis, potassium slightly bumped 5.4, patient receiving insulin for potassium and hyperglycemia, labs to be rechecked -my interpretation of CT scan, no intracranial bleed -patient's orthostatic vitals are positive, patient receiving IV fluids. Also, patient's glucose elevated, received insulin. Patient's troponin improved/decreased from the 1. Patient never had chest pain. -sign-out given to my colleague Dr. De La Cruz Differential Diagnosis Differential Diagnoses: The differential diagnosis associated with the presentation includes (Orthostatic hypotension, vasovagal syncope, near syncope, BPPV) Admission/Observation Consideration of admission/observation: Escalation of care including admission/observation considered (Given patient's symptoms and presentation, admission was considered) Lab Data MDM Lab Attestation statement: I reviewed the patient's lab results. 10/10/23 00:17 10/10/23 06:08 Labs: Lab Results 10/09/23 10/10/23 10/10/23 Range/Units 23:51 00:17 06:06 WBC 13.7 H (4.8-10.8) X10*3/uL RBC 3.21 L (4.60-5.80) X10*6/uL Hgb 10.3 L (14.0-18.0) g/dl Hct 31.6 L (42.0-52.0) % MCV 98.4 H (80.0-98.0) fL MCH 32.1 (27.0-33.0) pg MCHC 32.6 (31.0-36.0) g/dl RDW 13.1 (11.0-16.0) % Plt Count 138 L (160-400) X10*3/uL MPV 9.4 (9.4-12.4) fL Immature Gran % (Auto) 0.7 H (0.0-0.4) % Neut % (Auto) 87.2 H (45-73) % Lymph % (Auto) 7.2 L (20-40) % Knott % (Auto) 4.5 (2-11) % Eos % (Auto) 0.1 (0-4) % Baso % (Auto) 0.3 (0-2) % Lymph # (Auto) 1.0 L (1.2-4.9) X10*3/uL Knott # (Auto) 0.6 (0.1-1.2) X10*3/uL Eos # (Auto) 0.0 (0.0-0.4) X10*3/uL Baso # (Auto) 0.0 (0.0-0.2) X10*3/uL Abs Immat Gran (auto) 0.09 H (0.00-0.03) X10*3/uL Absolute Neuts (auto) 11.9 H (2.0-8.3) x10*3/uL Absolute Nucleated RBC 0.000 (0.0-0.012) X10*3/uL Nucleated RBC % (auto) 0.0 (0.0-0.2) /100WBC Sodium 138 (135-145) mmol/L Potassium 5.4 H (3.3-5.1) mmol/L Chloride 105 (96-108) mmol/L Carbon Dioxide 23 (22-29) mmol/L Anion Gap 15 (12-20) BUN 33 H (9-16) mg/dL Creatinine 1.24 (0.5-1.4) mg/dL Estim Creat Clear Calc 55.3 Estimated GFR 56 POC Glucose 293 H (60-115) mg/dL Random Glucose 361 H* (60-115) mg/dL Calcium 9.5 (8.4-10.2) mg/dL Total Bilirubin 0.7 (0.0-1.0) mg/dL AST 19 (5-37) U/L ALT 17 (0-40) U/L Alkaline Phosphatase 78 (39-117) U/L Total Creatine Kinase 75 (38-174) U/L Troponin I High Sens 149.0 H* D 87.5 H (<3.5-35.0) ng/L Total Protein 6.3 L (6.5-8.0) g/dL Albumin 3.5 (3.5-5.0) g/dL 10/10/23 10/10/23 10/10/23 Range/Units 06:08 06:09 07:02 WBC (4.8-10.8) X10*3/uL RBC (4.60-5.80) X10*6/uL Hgb (14.0-18.0) g/dl Hct (42.0-52.0) % MCV (80.0-98.0) fL MCH (27.0-33.0) pg MCHC (31.0-36.0) g/dl RDW (11.0-16.0) % Plt Count (160-400) X10*3/uL MPV (9.4-12.4) fL Immature Gran % (Auto) (0.0-0.4) % Neut % (Auto) (45-73) % Lymph % (Auto) (20-40) % Knott % (Auto) (2-11) % Eos % (Auto) (0-4) % Baso % (Auto) (0-2) % Lymph # (Auto) (1.2-4.9) X10*3/uL Knott # (Auto) (0.1-1.2) X10*3/uL Eos # (Auto) (0.0-0.4) X10*3/uL Baso # (Auto) (0.0-0.2) X10*3/uL Abs Immat Gran (auto) (0.00-0.03) X10*3/uL Absolute Neuts (auto) (2.0-8.3) x10*3/uL Absolute Nucleated RBC (0.0-0.012) X10*3/uL Nucleated RBC % (auto) (0.0-0.2) /100WBC Sodium 139 (135-145) mmol/L Potassium 5.1 (3.3-5.1) mmol/L Chloride 107 (96-108) mmol/L Carbon Dioxide 24 (22-29) mmol/L Anion Gap 13 (12-20) BUN 33 H (9-16) mg/dL Creatinine 1.15 (0.5-1.4) mg/dL Estim Creat Clear Calc 59.6 Estimated GFR > 60 POC Glucose 368 H* 322 H (60-115) mg/dL Random Glucose 420 H* (60-115) mg/dL Calcium 9.4 (8.4-10.2) mg/dL Total Bilirubin (0.0-1.0) mg/dL AST (5-37) U/L ALT (0-40) U/L Alkaline Phosphatase (39-117) U/L Total Creatine Kinase (38-174) U/L Troponin I High Sens (<3.5-35.0) ng/L Total Protein (6.5-8.0) g/dL Albumin (3.5-5.0) g/dL 10/10/23 10/10/23 Range/Units 07:44 10:46 WBC (4.8-10.8) X10*3/uL RBC (4.60-5.80) X10*6/uL Hgb (14.0-18.0) g/dl Hct (42.0-52.0) % MCV (80.0-98.0) fL MCH (27.0-33.0) pg MCHC (31.0-36.0) g/dl RDW (11.0-16.0) % Plt Count (160-400) X10*3/uL MPV (9.4-12.4) fL Immature Gran % (Auto) (0.0-0.4) % Neut % (Auto) (45-73) % Lymph % (Auto) (20-40) % Knott % (Auto) (2-11) % Eos % (Auto) (0-4) % Baso % (Auto) (0-2) % Lymph # (Auto) (1.2-4.9) X10*3/uL Knott # (Auto) (0.1-1.2) X10*3/uL Eos # (Auto) (0.0-0.4) X10*3/uL Baso # (Auto) (0.0-0.2) X10*3/uL Abs Immat Gran (auto) (0.00-0.03) X10*3/uL Absolute Neuts (auto) (2.0-8.3) x10*3/uL Absolute Nucleated RBC (0.0-0.012) X10*3/uL Nucleated RBC % (auto) (0.0-0.2) /100WBC Sodium (135-145) mmol/L Potassium (3.3-5.1) mmol/L Chloride (96-108) mmol/L Carbon Dioxide (22-29) mmol/L Anion Gap (12-20) BUN (9-16) mg/dL Creatinine (0.5-1.4) mg/dL Estim Creat Clear Calc Estimated GFR POC Glucose 342 H 354 H* (60-115) mg/dL Random Glucose (60-115) mg/dL Calcium (8.4-10.2) mg/dL Total Bilirubin (0.0-1.0) mg/dL AST (5-37) U/L ALT (0-40) U/L Alkaline Phosphatase (39-117) U/L Total Creatine Kinase (38-174) U/L Troponin I High Sens (<3.5-35.0) ng/L Total Protein (6.5-8.0) g/dL Albumin (3.5-5.0) g/dL Independent Interpretation I performed an independent interpretation of an: EKG and CT Scan Radiology Impression Discussion of test interpretation with radiology: I have reviewed the radiologist's reading. Radiologist Impression: FINDINGS: There is cerebral volume loss with prominence of the lateral and the third ventricles. The cortical sulci are widened appropriately. The fourth ventricle and basal cisterns are normally outlined. There is extensive bilateral periventricular and central white matter diminished attenuation. There is no acute territorial defect, hemorrhage or midline shift. The extra-axial spaces are unremarkable. Calvarium: Intact. Maxillofacial sinuses and mastoids clear as visualized. Cervical spine: Motion slightly limits evaluation. The alignment is within normal limits. There is diffuse wzdf-jf-uyxrixhy cervical disc degenerative change most pronounced at C5-C6, C6-C7 and C7-T1 with loss of disc space, endplate change and posterior osteophytes associated with diffuse mild to moderate facet osteoarthritic hypertrophic change with multilevel wnht-up-wcoaheqh spinal canal and neuroforaminal narrowing. The bony structures are heterogeneous/osteopenic. No fracture is seen. The soft tissues are unremarkable. The visualized upper lung rincon are clear. CT/CT head/brain wo IV con IMPRESSION: 1. No acute intracranial process seen. 2. Moderate cerebral volume loss with chronic small vessel ischemic changes. 3. There is no acute fracture, dislocation or subluxation seen in the cervical spine. There are degenerative disc changes and facet joint arthropathy as described above. Critical Care Time Critical Care Time Critical Care Time: Yes Total Critical Care Time: 45 Attestation: I have personally provided critical care time. Time includes review of lab data, radiology results, discussion with consultants, and monitoring for potential decompensation. Intervention performed as documented. Discharge Plan Discharge Clinical Impression: Orthostatic hypotension, Hyperglycemia Patient Disposition: Still a Patient Prescriptions: No Action donepezil 10 mg tablet 1 tab PO BEDTIME atenolol 25 mg tablet 1 tab PO DAILY Xarelto 20 mg tablet 1 tab PO DAILY@1700 insulin glargine [Lantus U-100 Insulin] 100 unit/mL Solution 30 unit SUBCUT DAILY atorvastatin 40 mg tablet 40 mg PO DAILY Januvia 100 mg tablet 100 mg PO DAILY venlafaxine 150 mg capsule,extended release 24hr 150 mg PO DAILY Rx Instructions: take with 37.5 mg capsule pioglitazone 15 mg tablet 15 mg PO DAILY venlafaxine 37.5 mg capsule,extended release 24hr 37.5 mg PO DAILY Rx Instructions: take with 150 mg capsule amlodipine 10 mg tablet 5 mg PO DAILY ipratropium bromide 21 mcg (0.03 %) spray,non-aerosol 2 spray intranasal BID acetaminophen 500 mg Tablet 1,000 mg PO BID gabapentin 100 mg capsule 100 mg PO BID Print Language: O[place]i
[2023-10-10 06:15] LABS: Glucose, Whole Blood 368 mg/dL (60-115)
[2023-10-10] MEDS: Insulin Regular, Human 100 UNIT/ML 3 ML VIAL 10 UNIT IVPUSH (06:15)
[2023-10-10] MEDS: 0.9 % Sodium Chloride 1,000 ML 999 ML IVCONT (06:16)
[2023-10-10 06:29] LABS: Anion Gap 13 (12-20); Blood Urea Nitrogen 33 mg/dL (9-16); Calcium 9.4 mg/dL (8.4-10.2); Carbon Dioxide 24 mmol/L (22-29); Chloride 107 mmol/L (96-108); Creatinine Clr Calc Pharmacy 59.6; Estimated Glomerular Filt Rate > 60; Glucose Random 420 mg/dL (60-115); Potassium 5.1 mmol/L (3.3-5.1); Sodium 139 mmol/L (135-145)
[2023-10-10 06:35] LABS: Troponin-I High Sensitivity 87.5 ng/L (<3.5-35.0)
[2023-10-10 07:08] LABS: Glucose, Whole Blood 322 mg/dL (60-115)
[2023-10-10 07:51] LABS: Glucose, Whole Blood 342 mg/dL (60-115)
[2023-10-10] MEDS: Insulin Lispro 100 UNIT/ML 3 ML VIAL 8 UNIT SUBCUT (09:50)
[2023-10-10] MEDS: Insulin Glargine,Hum.rec.anlog 100 UNIT/ML 10 ML VIAL 30 UNIT SUBCUT (09:52)
[2023-10-10 10:50] LABS: Glucose, Whole Blood 354 mg/dL (60-115)
--- NOTE | 2023-10-10 11:38 | MHC.EDTECH ---
This pct along with another pct attempted to do orthos static vitals, the patient was unable to stand long enough to conduct ortho static vitals.RN Aware
--- NOTE | 2023-10-10 11:57 | ECG_ITS ---
Test Reason : TROPONIN ELEVATION Blood Pressure : / mmHG Vent. Rate : 071 BPM Atrial Rate : 071 BPM P-R Int : 216 ms QRS Dur : 152 ms QT Int : 454 ms P-R-T Axes : 081 061 012 degrees QTc Int : 493 ms Sinus rhythm with 1st degree A-V block with Premature atrial complexes Right bundle branch block Abnormal ECG When compared with ECG of 10-OCT-2023 05:50, Premature atrial complexes are now Present Referred By: Nav De La Cruz Electronically Signed By:YASMIN DE LA VEGA MD
[2023-10-10 12:00] LABS: Anion Gap 10 (12-20); Blood Urea Nitrogen 30 mg/dL (9-16); Calcium 8.7 mg/dL (8.4-10.2); Carbon Dioxide 25 mmol/L (22-29); Chloride 107 mmol/L (96-108); Creatinine Clr Calc Pharmacy 65.9; Estimated Glomerular Filt Rate > 60; Glucose Random 408 mg/dL (60-115); Sodium 138 mmol/L (135-145)
[2023-10-10] MEDS: 0.9 % Sodium Chloride 1,000 ML 200 ML IVCONT (12:07)
[2023-10-10 12:14] LABS: Appearance Urine Clear; Color Urine Yellow; Glucose Urine UA >=1000 mg/dL (Negative); Leukocyte Esterase Urine Negative (Negative); Nitrite Urine Negative (Negative); Specific Gravity - Urine >= 1.030 (1.005-1.025); UMIC TRIGGER UACC YES; Urine Blood Negative (Negative); Urine Ketones Negative (Negative); Urine Protein Negative (Neg-Trace)
[2023-10-10 12:21] LABS: Bacteria Urine None Seen (None Seen); RBC Urine 0-2 /HPF (0-2); Squamous Epithelial Cell Urine 0-2 /HPF (0-2); WBC Urine 0-5 /HPF (0-5)
--- NOTE | 2023-10-10 12:26 | PM.IMHP ---
History of Present Illness Date of Service: 10/10/23 Chief Complaint: Fall 82 year old man presenting after a fall and found to have orthostasis while in the ED. patient reported that he was in his kitchen he got up and felt dizzy like the room was spinning and suddenly fell to the ground. He was unable to get himself up. His called his son who came to the house and was also unable to get him up. They then decided to call EMS who brought the patient to the emergency department. Patient denied any loss of consciousness, chest pain, shortness for breath, nausea, vomiting, diarrhea, fever, chills. He was also noted to have elevated troponin with no ekg changes and no chest pain. His blood sugars were noted to be elevated and he was noted to be orthostatic. In the ED, Head CT, cervical spine ct negative for acute abnormality. He received IV fluids, insulin. He will be placed on observation for tx of orthostatic hypotension and fall. Review of Systems Review of Systems: Denies any recent fever chills or decrease in appetite respiratory denies any shortness of breath or cough cardiovascular denied chest pain gastrointestinal denies any dysphagia abdominal pain nausea vomiting or diarrhea genitourinary denies any dysuria frequency or hematuria musculoskeletal denies any joint pain or swelling neuropsych denies any weakness or seizures all other systems reviewed are negative [facility] Medical History (Updated 10/10/23 @ 14:43 by Bhavana Donaldson NP) CAD (coronary artery disease) Depression Ulcerative colitis Aortic stenosis TATY on CPAP Obesity BPH (benign prostatic hyperplasia) Atrial fibrillation History of DVT (deep vein thrombosis) Asthma Diabetes mellitus Hyperlipidemia Hypertension Surgical History (Updated 10/10/23 @ 14:43 by Bhavana Donaldson NP) H/O ileostomy Social History Alcohol intake: never Patient Tobacco Use Status: Never used Tobacco Smoked in Last 30 Days: No Use of substances other than those prescribed or required for medical reasons: No Advance Directives: Yes Advance Directives on File: Yes Advance Directives Date on File: 12/12/22 Meds Allergies Allergy/AdvReac Type Severity Reaction Status Date / Time No Known Allergies Allergy Verified 10/09/23 23:48 Active Medications: Current Medications Acetaminophen (Acetaminophen 325 Mg Tablet) 650 mg PO Q6H PRN PRN Reason: Pain, Mild (Pain Scale 1-3) Sodium Chloride (Ns) 1,000 mls @ 200 mls/hr IVCONT .Q5H [facility] Stop: 10/10/23 16:44 Last Admin: 10/10/23 12:07 Dose: 200 mls/hr Ondansetron HCl (Ondansetron Hcl 4 Mg/2 Ml Vial) 4 mg IVPUSH Q8H PRN PRN Reason: Nausea and Vomiting Sodium Chloride (0.9 % Sodium Chloride Flush 3 Ml Syringe) 3 ml IVFLUSH QSHIFT [facility] Home Medications ?Medication ?Instructions ?Recorded ?Confirmed ?Last Taken ?Type atenolol 25 mg tablet 1 tab PO DAILY 05/27/21 10/10/23 10/09/23 History donepezil 10 mg tablet 1 tab PO BEDTIME 05/27/21 10/10/23 10/09/23 History insulin glargine 100 unit/mL 33 unit subcut DAILY 05/27/21 10/10/23 10/09/23 History subcutaneous solution (Lantus U-100 Insulin) rivaroxaban 20 mg tablet (Xarelto) 1 tab PO DAILY@1700 05/27/21 10/10/23 10/09/23 History atorvastatin 40 mg tablet 40 mg PO DAILY 10/20/22 10/10/23 10/09/23 History sitagliptin phosphate 100 mg 100 mg PO DAILY 10/20/22 10/10/23 10/09/23 History tablet (Januvia) venlafaxine 150 mg 150 mg PO DAILY 10/20/22 10/10/23 10/09/23 History capsule,extended release 24 hr gabapentin 100 mg capsule 100 mg PO BID 12/11/22 10/10/23 10/09/23 History acetaminophen 500 mg tablet 1,000 mg PO BID PRN Pain 06/04/23 10/10/23 06/03/23 History amlodipine 10 mg tablet 5 mg PO DAILY 06/04/23 10/10/23 10/09/23 History ipratropium bromide 21 mcg (0.03 2 spray intranasal BID 06/04/23 10/10/23 10/09/23 History %) nasal spray pioglitazone 15 mg tablet 15 mg PO DAILY 06/04/23 10/10/23 10/09/23 History venlafaxine 37.5 mg 37.5 mg PO DAILY 06/04/23 10/10/23 10/09/23 History capsule,extended release 24 hr Physical Exam Vital Signs and Narrative: Vital Signs: Last Vital Signs Temp 97.8 F 10/10/23 10:24 Pulse 94 10/10/23 11:32 Resp 17 10/10/23 10:24 BP 119/61 10/10/23 11:32 Pulse Ox 99 10/10/23 10:24 O2 Del Method Room Air 10/10/23 10:24 BMI result Body Mass Index 39.5 Appearing in no acute distress head is normocephalic atraumatic eyes pupils are PERRLA sclera is anicteric mouth throat mucous membranes are intact and moist neck is supple no lymphadenopathy, no JVD noted lung sounds are clear to auscultation heart regular rate rhythm, clear S1, S2 positive bowel sounds, abdomen is soft, nontender neuro patient is alert x3, no focal deficits Results Labs 10/10/23 00:17 10/10/23 11:29 Labs: Laboratory Results - last 24 hr 10/09/23 10/10/23 10/10/23 23:51 00:17 06:06 MCV 98.4 H MCH 32.1 MCHC 32.6 RDW 13.1 Plt Count 138 L MPV 9.4 Immature Gran % (Auto) 0.7 H Neut % (Auto) 87.2 H Lymph % (Auto) 7.2 L [place] % (Auto) 4.5 Eos % (Auto) 0.1 Baso % (Auto) 0.3 Lymph # (Auto) 1.0 L [place] # (Auto) 0.6 Eos # (Auto) 0.0 Baso # (Auto) 0.0 Abs Immat Gran (auto) 0.09 H Absolute Neuts (auto) 11.9 H Absolute Nucleated RBC 0.000 Nucleated RBC % (auto) 0.0 Anion Gap 15 Estim Creat Clear Calc 55.3 Estimated GFR 56 POC Glucose 293 H Random Glucose 361 H* Calcium 9.5 Total Bilirubin 0.7 AST 19 ALT 17 Alkaline Phosphatase 78 Total Creatine Kinase 75 Troponin I High Sens 149.0 H* D 87.5 H Total Protein 6.3 L Albumin 3.5 Urine Color Urine Appearance Urine pH Ur Specific [place] Urine Protein Urine Glucose (UA) Urine Ketones Urine Blood Urine Nitrite Ur Leukocyte Esterase Urine RBC Urine WBC Ur Squamous Epith Cells Urine Bacteria Hyaline Casts 10/10/23 10/10/23 10/10/23 06:08 06:09 07:02 MCV MCH MCHC RDW Plt Count MPV Immature Gran % (Auto) Neut % (Auto) Lymph % (Auto) [place] % (Auto) Eos % (Auto) Baso % (Auto) Lymph # (Auto) [place] # (Auto) Eos # (Auto) Baso # (Auto) Abs Immat Gran (auto) Absolute Neuts (auto) Absolute Nucleated RBC Nucleated RBC % (auto) Anion Gap 13 Estim Creat Clear Calc 59.6 Estimated GFR > 60 POC Glucose 368 H* 322 H Random Glucose 420 H* Calcium 9.4 Total Bilirubin AST ALT Alkaline Phosphatase Total Creatine Kinase Troponin I High Sens Total Protein Albumin Urine Color Urine Appearance Urine pH Ur Specific [place] Urine Protein Urine Glucose (UA) Urine Ketones Urine Blood Urine Nitrite Ur Leukocyte Esterase Urine RBC Urine WBC Ur Squamous Epith Cells Urine Bacteria Hyaline Casts 10/10/23 10/10/23 10/10/23 07:44 10:46 11:29 MCV MCH MCHC RDW Plt Count MPV Immature Gran % (Auto) Neut % (Auto) Lymph % (Auto) [place] % (Auto) Eos % (Auto) Baso % (Auto) Lymph # (Auto) [place] # (Auto) Eos # (Auto) Baso # (Auto) Abs Immat Gran (auto) Absolute Neuts (auto) Absolute Nucleated RBC Nucleated RBC % (auto) Anion Gap 10 L Estim Creat Clear Calc 65.9 Estimated GFR > 60 POC Glucose 342 H 354 H* Random Glucose 408 H* Calcium 8.7 D Total Bilirubin AST ALT Alkaline Phosphatase Total Creatine Kinase Troponin I High Sens Total Protein Albumin Urine Color Urine Appearance Urine pH Ur Specific [place] Urine Protein Urine Glucose (UA) Urine Ketones Urine Blood Urine Nitrite Ur Leukocyte Esterase Urine RBC Urine WBC Ur Squamous Epith Cells Urine Bacteria Hyaline Casts 10/10/23 12:01 MCV MCH MCHC RDW Plt Count MPV Immature Gran % (Auto) Neut % (Auto) Lymph % (Auto) [place] % (Auto) Eos % (Auto) Baso % (Auto) Lymph # (Auto) [place] # (Auto) Eos # (Auto) Baso # (Auto) Abs Immat Gran (auto) Absolute Neuts (auto) Absolute Nucleated RBC Nucleated RBC % (auto) Anion Gap Estim Creat Clear Calc Estimated GFR POC Glucose Random Glucose Calcium Total Bilirubin AST ALT Alkaline Phosphatase Total Creatine Kinase Troponin I High Sens Total Protein Albumin Urine Color Yellow Urine Appearance Clear Urine pH 5.0 Ur Specific [place] >= 1.030 H Urine Protein Negative Urine Glucose (UA) >=1000 H Urine Ketones Negative Urine Blood Negative Urine Nitrite Negative Ur Leukocyte Esterase Negative Urine RBC 0-2 Urine WBC 0-5 Ur Squamous Epith Cells 0-2 Urine Bacteria None Seen Hyaline Casts 3-5 Imaging Radiologist's Impressions: Impressions Cervical Spine CT 10/10/23 00:45 IMPRESSION: 1. No acute intracranial process seen. 2. Moderate cerebral volume loss with chronic small vessel ischemic changes. 3. There is no acute fracture, dislocation or subluxation seen in the cervical spine. There are degenerative disc changes and facet joint arthropathy as described above. Head CT 10/10/23 00:45 IMPRESSION: 1. No acute intracranial process seen. 2. Moderate cerebral volume loss with chronic small vessel ischemic changes. 3. There is no acute fracture, dislocation or subluxation seen in the cervical spine. There are degenerative disc changes and facet joint arthropathy as described above. Assessment and Plan (1) Elevated troponin: Status: Acute (2) Hyperglycemia: Status: Acute Plan 82-year-old man placed on observation after a fall at home with noted orthostatic hypotension in the ED Orthostatic hypotension Check orthostatics Q shift Out of bed with assist Gentle IV fluid hydration Out of bed with assist monitor on telemetry Fall Physical therapy consultation Elevated troponin No chest pain No ischemic changes noted on EKG Hypertension continue home medications Diabetes mellitus type 2 Sliding scale, ADA diet Diabetic neuropathy Continue gabapentin Mental health Continue home medications DVT prophylaxis with xarelto Full code Observation Quality Stroke Does the patient have a stroke diagnosis?: No VTE Prior VTE?: No VTE Risk Level:: Medical - moderate - high VTE Device Contraindication: N/A - Device Ordered VTE Drug Contraindication: Treatment Not Indicated
[2023-10-10 12:36] LABS: Troponin-I High Sensitivity 64.9 ng/L (<3.5-35.0)
--- NOTE | 2023-10-10 15:52 | PHA.MEDREC ---
Pharmacy Consult ? Medication Reconciliation Pharmacy has completed the medication reconciliation. Spoke to son Mega via phone and confirmed medication list. He said pt takes gabapentin 100 mg bid, 33 units of lantus daily and 5 mg of amlodipine daily.
[2023-10-10 15:53] LABS: Troponin-I High Sensitivity 59.5 ng/L (<3.5-35.0)
[2023-10-10 16:01] LABS: Glucose, Whole Blood 277 mg/dL (60-115)
--- NOTE | 2023-10-10 16:28 | MHC.EDTECH ---
This pct attempted orthos static vitals but patient can not stand long enough to conduct orthos. RN Aware
[2023-10-10 17:01] LABS: Glucose, Whole Blood 264 mg/dL (60-115)
[2023-10-10] MEDS: Rivaroxaban 20 MG TABLET PO (18:08)
[2023-10-10] MEDS: Insulin Lispro 100 UNIT/ML 3 ML VIAL SUBCUT ×2 (18:10→21:09)
--- NOTE | 2023-10-10 19:43 | MHC.EDTECH ---
Patient repositioned and bed pad changed
--- NOTE | 2023-10-10 20:55 | MHC.EDTECH ---
Assumed care at 20:30
[2023-10-10] MEDS: Donepezil HCl 10 MG TABLET PO (21:09)
[2023-10-10] MEDS: Gabapentin 100 MG CAPSULE PO (21:09)
[2023-10-10] MEDS: Nystatin Powder 15 GM BOTTLE 1 APPL TOPICAL (21:10)
[2023-10-10 21:13] LABS: Glucose, Whole Blood 242 mg/dL (60-115)
[2023-10-11] MEDS: 0.9 % Sodium Chloride Flush 3 ML SYRINGE IVFLUSH ×2 (00:45→08:31)
[2023-10-11 06:53] LABS: Hemoglobin 9.2 g/dl (14.0-18.0); Mean Corpuscular HGB Conc 32.9 g/dl (31.0-36.0); Mean Corpuscular Hemoglobin 32.1 pg (27.0-33.0); Mean Corpuscular Volume 97.6 fL (80.0-98.0); Mean Platelet Volume 9.4 fL (9.4-12.4); Platelet Count 131 X10*3/uL (160-400); Red Blood Count 2.87 X10*6/uL (4.60-5.80); Red Cell Distribution Width 13.3 % (11.0-16.0); White Blood Count 9.5 X10*3/uL (4.8-10.8)
[2023-10-11 07:22] LABS: Alanine Aminotransferase 13 U/L (0-40); Albumin Level 3.3 g/dL (3.5-5.0); Alkaline Phosphatase 57 U/L (39-117); Anion Gap 12 (12-20); Aspartate Amino Transferase 14 U/L (5-37); Bilirubin Total 0.8 mg/dL (0.0-1.0); Blood Urea Nitrogen 21 mg/dL (9-16); Calcium 9.1 mg/dL (8.4-10.2); Carbon Dioxide 24 mmol/L (22-29); Chloride 106 mmol/L (96-108); Creatinine Clr Calc Pharmacy 79.7; Estimated Glomerular Filt Rate > 60; Glucose Random 189 mg/dL (60-115); Potassium 3.6 mmol/L (3.3-5.1); Sodium 138 mmol/L (135-145)
[2023-10-11 07:26] LABS: Glucose, Whole Blood 161 mg/dL (60-115)
[2023-10-11 08:29] VITALS: BP 150/43; PULSE 66; RESP 16; TEMP 36.7; O2SAT 99
[2023-10-11] MEDS: Gabapentin 100 MG CAPSULE PO ×2 (08:31→21:16)
[2023-10-11] MEDS: Atorvastatin Calcium 40 MG TABLET PO (08:31)
[2023-10-11] MEDS: Venlafaxine HCl ER 150 MG CAP.ER.24H PO (08:31)
[2023-10-11] MEDS: Insulin Lispro 100 UNIT/ML 3 ML VIAL SUBCUT ×4 (08:32→21:17)
[2023-10-11] MEDS: Insulin Glargine,Hum.rec.anlog 100 UNIT/ML 10 ML VIAL 33 UNIT SUBCUT (08:32)
[2023-10-11] MEDS: Nystatin Powder 15 GM BOTTLE 1 APPL TOPICAL (08:33)
--- NOTE | 2023-10-11 08:36 | PC.NURSE ---
this RN resumed care of pt at this time. a&ox4. vss and up to date. nsr on the child monitor. pt used walker to ambulate to restroom - 1:1 assist needed while using walker. no sob/wob noted during ambulation. fresh bedding applied. pt denies pain at this time. medication administered per provider order. nystatin powder applied to groin. redness/foul smell noted to be coming from groin area. pt resting comfortably in bed w/ the lights dimmed. pt waiting for bed assignment at this time. plan of care ongoing. call silva placed within reach.
[2023-10-11] MEDS: Venlafaxine HCl ER 37.5 MG CAP.ER.24H PO (10:22)
--- NOTE | 2023-10-11 10:30 | PC.NURSE ---
admission worksheet complete. transport notified at this time.
[2023-10-11 11:37] LABS: Glucose, Whole Blood 240 mg/dL (60-115)
--- NOTE | 2023-10-11 11:40 | MHC.CM.PN ---
PT REPORTS HE LIVES AT [facility] WITH HIS HE IS INDEPENDENT WITH SELF CARE THEY HAVE A PRIVATE PAY HOME HEALTH AID WHO HELPS WITH HEAVY CLEANING PT HAS A WALKER HE USES OUTSIDE OF THE APARTMENT ONLY HE HAS A HCP ON FILE PCP: ERICK BAI OBSERVATION NOTICE DELIVERED PER PTS REQUEST, CM CALLED HIS SON, JAYASHREE. OBS NOTICE EXPLAINED TO JAYASHREE HE ASKS THAT REFERRALS BE MADE TO [facility] HE DOES NOT WANT PT TO GO TO [facility] PT WILL NEED BLS TRANSPORT
[2023-10-11 12:00] VITALS: BP 141/63; PULSE 77
--- NOTE | 2023-10-11 12:17 | HO.PM.IMPN ---
Subjective Subjective Date of Service: 10/11/23 Review of Systems Follow up fall, orthostatis feeling better today no pain Physical Exam Vital Signs: Vital Signs: Last Vital Signs Temp 98.0 F 10/11/23 08:29 Pulse 66 10/11/23 08:29 Resp 16 10/11/23 08:29 BP 150/43 H 10/11/23 08:29 Pulse Ox 99 10/11/23 08:29 O2 Del Method Room Air 10/11/23 08:29 BMI result Body Mass Index 39.5 Appearing in no acute distress lung sounds are clear to auscultation heart regular rate rhythm, clear S1, S2 positive bowel sounds, abdomen is soft, nontender neuro patient is alert x3, no focal deficits Objective Data Active Medications Acetaminophen (Acetaminophen 325 Mg Tablet) 650 mg PO Q6H PRN PRN Reason: Pain, Mild (Pain Scale 1-3) Atorvastatin Calcium (Atorvastatin Calcium 40 Mg Tablet) 40 mg PO DAILY [facility] Last Admin: 10/11/23 08:31 Dose: 40 mg Documented By: BOYD Donepezil HCl (Donepezil Hcl 10 Mg Tablet) 10 mg PO BEDTIME [facility] Last Admin: 10/10/23 21:09 Dose: 10 mg Documented By: RAISSA Gabapentin (Gabapentin 100 Mg Capsule) 100 mg PO BID [facility] Last Admin: 10/11/23 08:31 Dose: 100 mg Documented By: BOYD Glucose (Glucose Gel 15 Gm Gel..Gram.) 15 gm PO Q15M PRN; Protocol PRN Reason: per Hypoglycemia Standing Ord. Dextrose (D10) 250 mls @ 750 mls/hr IV Q15M PRN; Protocol PRN Reason: per Hypoglycemia Standing Ord. Insulin Glargine (Insulin Glargine,Hum.Rec.Anlog 100 Unit/Ml 10 Ml Vial) 33 unit SUBCUT DAILY [facility] Last Admin: 10/11/23 08:32 Dose: 33 unit Documented By: BOYD Insulin Human Lispro (Insulin Lispro 100 Unit/Ml 3 Ml Vial) 0 unit SUBCUT QIDACHS [facility]; Protocol Last Admin: 10/11/23 12:02 Dose: 4 unit Documented By: RIVER Nystatin (Nystatin Powder 15 Gm Bottle) 1 appl TOPICAL TID [facility]; Protocol Last Admin: 10/11/23 08:33 Dose: 1 appl Documented By: BOYD Ondansetron HCl (Ondansetron Hcl 4 Mg/2 Ml Vial) 4 mg IVPUSH Q8H PRN PRN Reason: Nausea and Vomiting Rivaroxaban (Rivaroxaban 20 Mg Tablet) 20 mg PO DAILY@1700 [facility] Last Admin: 10/10/23 18:08 Dose: 20 mg Documented By: RUDY Sodium Chloride (0.9 % Sodium Chloride Flush 3 Ml Syringe) 3 ml IVFLUSH QSHIFT [facility] Last Admin: 10/11/23 08:31 Dose: 3 ml Documented By: BOYD Venlafaxine HCl (Venlafaxine Hcl Er 37.5 Mg Cap.Er.24h) 37.5 mg PO DAILY [facility] Last Admin: 10/11/23 10:22 Dose: 37.5 mg Documented By: BOYD Venlafaxine HCl (Venlafaxine Hcl Er 150 Mg Cap.Er.24h) 150 mg PO DAILY [facility] Last Admin: 10/11/23 08:31 Dose: 150 mg Documented By: BOYD Labs 10/11/23 04:31 10/11/23 04:31 Labs: Laboratory Results - last 24 hr 10/10/23 10/10/23 10/10/23 12:01 12:04 15:27 MCV MCH MCHC RDW Plt Count MPV Absolute Nucleated RBC Nucleated RBC % (auto) Anion Gap Estim Creat Clear Calc Estimated GFR POC Glucose Random Glucose Calcium Total Bilirubin AST ALT Alkaline Phosphatase Troponin I High Sens 64.9 H 59.5 H Total Protein Albumin Urine Color Yellow Urine Appearance Clear Urine pH 5.0 Ur Specific [place] >= 1.030 H Urine Protein Negative Urine Glucose (UA) >=1000 H Urine Ketones Negative Urine Blood Negative Urine Nitrite Negative Ur Leukocyte Esterase Negative Urine RBC 0-2 Urine WBC 0-5 Ur Squamous Epith Cells 0-2 Urine Bacteria None Seen Hyaline Casts 3-5 10/10/23 10/10/23 10/10/23 15:56 16:56 21:03 MCV MCH MCHC RDW Plt Count MPV Absolute Nucleated RBC Nucleated RBC % (auto) Anion Gap Estim Creat Clear Calc Estimated GFR POC Glucose 277 H 264 H 242 H Random Glucose Calcium Total Bilirubin AST ALT Alkaline Phosphatase Troponin I High Sens Total Protein Albumin Urine Color Urine Appearance Urine pH Ur Specific [place] Urine Protein Urine Glucose (UA) Urine Ketones Urine Blood Urine Nitrite Ur Leukocyte Esterase Urine RBC Urine WBC Ur Squamous Epith Cells Urine Bacteria Hyaline Casts 10/11/23 10/11/23 10/11/23 04:31 07:19 11:19 MCV 97.6 MCH 32.1 MCHC 32.9 RDW 13.3 Plt Count 131 L MPV 9.4 Absolute Nucleated RBC 0.000 Nucleated RBC % (auto) 0.0 Anion Gap 12 Estim Creat Clear Calc 79.7 Estimated GFR > 60 POC Glucose 161 H 240 H Random Glucose 189 H Calcium 9.1 Total Bilirubin 0.8 AST 14 ALT 13 Alkaline Phosphatase 57 Troponin I High Sens Total Protein 6.0 L Albumin 3.3 L Urine Color Urine Appearance Urine pH Ur Specific [place] Urine Protein Urine Glucose (UA) Urine Ketones Urine Blood Urine Nitrite Ur Leukocyte Esterase Urine RBC Urine WBC Ur Squamous Epith Cells Urine Bacteria Hyaline Casts Assessment and Plan (1) Orthostatic hypotension: Status: Acute Plan 82-year-old man placed on observation after a fall at home with noted orthostatic hypotension in the ED Orthostatic hypotension Out of bed with assist still orthostatic today but no dizziness Fall no injury Physical therapy consultation>rec STR but patient and family want him home with VNA Elevated troponin No chest pain No ischemic changes noted on EKG Hypertension continue home medications Diabetes mellitus type 2 Sliding scale, ADA diet Diabetic neuropathy Continue gabapentin Mental health Continue home medications DVT prophylaxis with xarelto Attending Dr. Sr Full code Observation Quality Stroke Does the patient have a stroke diagnosis?: No VTE Prior VTE?: No VTE Risk Level:: Medical - moderate - high VTE Device Contraindication: N/A - Device Ordered VTE Drug Contraindication: Treatment Not Indicated
[2023-10-11] MEDS: 0.9 % Sodium Chloride 1,000 ML 100 ML IVCONT (12:41)
--- NOTE | 2023-10-11 12:42 | PC.NURSE ---
Bhavana Donaldson aware of orthostatic vitals. IVF ordered and running. Pt ambulated to BR using walker- unsteady and denied dizziness. Sitting up in recliner with legs elevated
--- NOTE | 2023-10-11 14:05 | MHC.CM.PN ---
Patient/son prefer to return home w/ services. Have used [facility] in the past and would like to use again. Referral sent via [facility]. CM will continue to follow.
[2023-10-11 15:34] VITALS: BP 149/66; PULSE 75; RESP 20; TEMP 36.2; O2SAT 99
[2023-10-11 16:08] LABS: Glucose, Whole Blood 269 mg/dL (60-115)
[2023-10-11] MEDS: Rivaroxaban 20 MG TABLET PO (16:12)
[2023-10-11 20:00] VITALS: BP 149/58; BP 156/68; PULSE 95; PULSE 96; RESP 18; TEMP 36.6; O2SAT 98
[2023-10-11 20:24] LABS: Glucose, Whole Blood 218 mg/dL (60-115)
[2023-10-11] MEDS: Donepezil HCl 10 MG TABLET PO (21:16)
--- NOTE | 2023-10-11 23:01 | PC.NURSE ---
pt alert and oriented x 3 on assessment, however is intermittently forgetful and somewhat restless requiring redirection. Has scattered bruising to BUE, and scabs to BLE. Skin tear to L arm covered in dressing, CDI. ostomy appliance in place, CDI.
[2023-10-11 23:53] VITALS: BP 155/76; PULSE 88; RESP 18; TEMP 36.7; O2SAT 99
[2023-10-12] MEDS: 0.9 % Sodium Chloride 1,000 ML 100 ML IVCONT ×4 (00:45→21:21)
[2023-10-12] MEDS: 0.9 % Sodium Chloride Flush 3 ML SYRINGE IVFLUSH ×4 (00:45→21:00)
[2023-10-12 03:50] VITALS: BP 185/81; PULSE 95; RESP 20; TEMP 36.3; O2SAT 100
[2023-10-12 07:44] VITALS: BP 73/39; PULSE 103
[2023-10-12 07:51] LABS: Glucose, Whole Blood 157 mg/dL (60-115)
[2023-10-12] MEDS: Insulin Lispro 100 UNIT/ML 3 ML VIAL SUBCUT ×4 (07:56→21:29)
[2023-10-12] MEDS: Insulin Glargine,Hum.rec.anlog 100 UNIT/ML 10 ML VIAL 33 UNIT SUBCUT (07:56)
[2023-10-12] MEDS: Atorvastatin Calcium 40 MG TABLET PO (07:57)
[2023-10-12] MEDS: Gabapentin 100 MG CAPSULE PO ×2 (07:57→20:59)
[2023-10-12] MEDS: Venlafaxine HCl ER 37.5 MG CAP.ER.24H PO (07:57)
[2023-10-12] MEDS: Venlafaxine HCl ER 150 MG CAP.ER.24H PO (07:57)
[2023-10-12] MEDS: Nystatin Powder 15 GM BOTTLE 1 APPL TOPICAL ×3 (07:57→21:29)
[2023-10-12 08:00] VITALS: BP 126/63; BP 137/62; PULSE 88; PULSE 89; RESP 16; TEMP 36.6; O2SAT 98
--- NOTE | 2023-10-12 10:49 | CA_ITS ---
Transthoracic Echocardiogram Patient (Last, First, Middle): Kevin Pena, Gender: Male Date of : 1940 Age: 82 Procedure Date: 10/12/2023 Procedure Type: Transthoracic Echocardiogram Location: S3E Height: 172.72 cm Weight: 78.02 kg BSA: 1.92 m2 Heart Rate: 93 bpm BP: 126 / 63 mmHg Senior Network Systems Engineer: SB Referring MD: Nina FU Symptoms: syncope, ? Study Quality: Adequate w contrast ECG Rhythm: Sinus arrhythmia Conclusions: - Normal left ventricular size and systolic function. The visually estimated ejection fraction is between 55-60%. - Normal right ventricular cavity size and systolic function. - There is moderate aortic valve stenosis. Findings Procedure Information Contrast agent, definity, is being given per protocol without apparent complications. The quality of the study was technically difficult. The study quality is limited by patients body habitus. Left Ventricle Normal left ventricular size and systolic function. The visually estimated ejection fraction is between 55-60%. There is no evidence of regional wall motion abnormalities. Abnormal diastolic function is noted. Spectral Doppler is indicative of an impaired relaxation filling pattern. E/E prime ratio is between 8 and 15 consistent with indeterminate filling pressures. There is moderate septal asymmetric hypertrophy. Right Ventricle Normal right ventricular cavity size and systolic function. Atria The left atrium is likely dilated. The right atrium is normal in size. Aortic Valve There is a normal trileaflet aortic valve. There is mild calcification of the aortic valve. There is moderate aortic valve stenosis. The peak aortic velocity is 3.74 m/s. The mean gradient is 28 mmHg. The aortic valve area is 1.14 cm2. There is trace (trivial) aortic valve regurgitation. Mitral Valve Normal mitral valve structure and function. There is mild mitral valve regurgitation. There is no mitral valve stenosis. Pulmonic Valve The pulmonic valve is normal. There is trace pulmonic valve regurgitation. Tricuspid Valve Normal tricuspid valve structure. There is trace tricuspid valve regurgitation. Tricuspid regurgitation envelope is inadequate for calculation of right ventricular systolic pressure. Normal right atrial pressure. Great Vessels All visible segments of the aorta are normal in size. The visualized portions of the pulmonary artery and branches are normal. Venous The inferior vena cava is normal in size and collapses greater than 50% with inspiration. Pericardium/Pleural There is no evidence of pericardial effusion. Prior Study Comparison No prior study available for comparison. Measurements 2D Linear Measurements IVSd: 1.42 0.6-0.9/0.6-1.0 cm LVIDd: 4.91 3.9-5.3/4.2-5.9 cm LVIDd Index: 2.56 2.4-3.2/2.2-3.1 cm/m2 LVIDs: 3.68 2.0-3.6 cm LVPWd: 0.92 0.7-1.1 cm LA Diam: 3.60 2.7-3.8/3.0-4.0 cm LAIDs Index: 1.88 1.5-2.3 cm/m2 LV Mass: 272.56 67-162/88-224 g LV Mass Index: 141.96 43-95/49-115 g/m2 LVOT Diam: 2.30 3.0+(-)1.3 cm 2D Systolic Function EF 4C: 62.40 >55% EF 2C: 50.20 >55% EF BiP: 58.00 >55% Mitral Valve MV Pk E: 1.00 MV PK A: 0.99 MV Decel Time: 202.00 E/A: 1.00 E'Lateral: 8.27 E'Medial: 6.53 E/E' Med: 15.30 E/E' Lat: 12.10 PHT: 59.00 MVA PHT: 3.73 Decel [place]: 4.97 Aortic Valve AoV Pk Alan: 3.74 AoV Mn [place]: 2.43 AoV VTI: 0.82 AoV Pk Grad: 56.00 Aov Mn Grad: 28.00 JABARI Cont.VTI: 1.14 LVOT LVOT Pk Alan: 0.93 LVOT Mn Alan: 0.66 LVOT VTI: 0.23 LVOT Pk Grad: 3.00 LVOT Mn Grad: 2.00 LVOT Diam: 2.30 LVOT Area: 4.15 Diastolic Function MV Pk E: 1.00 MV Pk A: 0.99 E/A: 1.00 E'Medial: 6.53 E/E' Med: 15.30 E' Laterial: 8.27 E/E' Lat: 12.10 Right Ventricle TAPSE (mm): 23.40 TVS' Alan: 12.20 Tricuspid Valve RA Press: 3.00 Great Vessels Aorta Sinus of Valsalva: 3.50 2.0-3.5 cm Ao Asc: 3.50 2.1-3.4 cm Pulmonary Valve PV Pk Alan: 1.13 Peak PV Grad: 5.00 Updated in Other Vendor System with Status of Final [place] MD electronically signed on 10/12/2023 4:55:12 PM with status of Final
[2023-10-12 11:31] LABS: Glucose, Whole Blood 197 mg/dL (60-115)
--- NOTE | 2023-10-12 13:58 | MHC.CM.PN ---
Patient now inpatient. IMM delivered.
--- NOTE | 2023-10-12 14:12 | P.CONNP_ITS ---
History of Present Illness Reason for Consult Consult date: 10/12/23 Reason for consult: Orthostatic hypotension Chief Complaint Chief complaint: fall ortho History of Present Illness Narrative: 82 year old man presenting after a fall and found to have orthostasis while in the ED. patient reported that he was in his kitchen he got up and felt dizzy like the room was spinning and suddenly fell to the ground. He was unable to get himself up. His called his son who came to the house and was also unable to get him up. They then decided to call EMS who brought the patient to the emergency department. Consult has been requested for orthostatic hypotension. Urinalysis showed a specific gravity I. 030 Review of Systems Constitutional: Denies fever(s) and Denies weight loss Cardiovascular: Denies chest pain Respiratory: Denies cough and Denies hemoptysis Gastrointestinal: Denies abdominal pain, Denies diarrhea and Denies nausea Musculoskeletal: Denies back pain Denies focal weakness PMFSH Past Medical History Medical History (Updated 10/10/23 @ 14:43 by Bhavana Donaldson NP) CAD (coronary artery disease) Depression Ulcerative colitis Aortic stenosis TATY on CPAP Obesity BPH (benign prostatic hyperplasia) Atrial fibrillation History of DVT (deep vein thrombosis) Asthma Diabetes mellitus Hyperlipidemia Hypertension Surgical History Surgical History (Updated 10/10/23 @ 14:43 by Bhavana Donaldson NP) H/O ileostomy Social History Social History Household Members: Spouse Housing: Other Housing Other:: independent living Alcohol intake: never Patient Tobacco Use Status: Never used Tobacco Smoked in Last 30 Days: No Use of substances other than those prescribed or required for medical reasons: No Currently Displaying Signs/Symptoms of Drug Intoxication Withdrawal: No Have you been hit, kicked, punched, or otherwise hurt by someone within the past year? If so, by whom?: No Do you feel safe in your current relationship?: Yes Is there a partner from a previous relationship who is making you feel unsafe now?: No Are you made to feel afraid or neglected: No Advance Directives: Yes Advance Directives on File: Yes Advance Directives Date on File: 12/12/22 Do you have thoughts of harming others: None Do you have a plan to hurt others: No Plan Recently lost weight without trying: No Nutrition Risks: No Nutritional Risk service: No Meds Allergies Allergy/AdvReac Type Severity Reaction Status Date / Time No Known Allergies Allergy Verified 10/09/23 23:48 Active Medications: Current Medications Acetaminophen (Acetaminophen 325 Mg Tablet) 650 mg PO Q6H PRN PRN Reason: Pain, Mild (Pain Scale 1-3) Atorvastatin Calcium (Atorvastatin Calcium 40 Mg Tablet) 40 mg PO DAILY [facility] Last Admin: 10/12/23 07:57 Dose: 40 mg Donepezil HCl (Donepezil Hcl 10 Mg Tablet) 10 mg PO BEDTIME [facility] Last Admin: 10/11/23 21:16 Dose: 10 mg Gabapentin (Gabapentin 100 Mg Capsule) 100 mg PO BID [facility] Last Admin: 10/12/23 07:57 Dose: 100 mg Glucose (Glucose Gel 15 Gm Gel..Gram.) 15 gm PO Q15M PRN; Protocol PRN Reason: per Hypoglycemia Standing Ord. Dextrose (D10) 250 mls @ 750 mls/hr IV Q15M PRN; Protocol PRN Reason: per Hypoglycemia Standing Ord. Sodium Chloride (Ns) 1,000 mls @ 100 mls/hr IVCONT .Q10H [facility] Last Admin: 10/12/23 11:13 Dose: 100 mls/hr Insulin Glargine (Insulin Glargine,Hum.Rec.Anlog 100 Unit/Ml 10 Ml Vial) 33 unit SUBCUT DAILY [facility] Last Admin: 10/12/23 07:56 Dose: 33 unit Insulin Human Lispro (Insulin Lispro 100 Unit/Ml 3 Ml Vial) 0 unit SUBCUT QIDACHS [facility]; Protocol Last Admin: 10/12/23 12:06 Dose: 2 unit Nystatin (Nystatin Powder 15 Gm Bottle) 1 appl TOPICAL TID [facility]; Protocol Last Admin: 10/12/23 07:57 Dose: 1 appl Ondansetron HCl (Ondansetron Hcl 4 Mg/2 Ml Vial) 4 mg IVPUSH Q8H PRN PRN Reason: Nausea and Vomiting Rivaroxaban (Rivaroxaban 20 Mg Tablet) 20 mg PO DAILY@1700 [facility] Last Admin: 10/11/23 16:12 Dose: 20 mg Sodium Chloride (0.9 % Sodium Chloride Flush 3 Ml Syringe) 3 ml IVFLUSH QSHIFT [facility] Last Admin: 10/12/23 07:57 Dose: 3 ml Venlafaxine HCl (Venlafaxine Hcl Er 37.5 Mg Cap.Er.24h) 37.5 mg PO DAILY [facility] Last Admin: 10/12/23 07:57 Dose: 37.5 mg Venlafaxine HCl (Venlafaxine Hcl Er 150 Mg Cap.Er.24h) 150 mg PO DAILY [facility] Last Admin: 10/12/23 07:57 Dose: 150 mg Home Medications ?Medication ?Instructions ?Recorded ?Confirmed ?Last Taken ?Type atenolol 25 mg tablet 1 tab PO DAILY 05/27/21 10/10/23 10/09/23 History donepezil 10 mg tablet 1 tab PO BEDTIME 05/27/21 10/10/23 10/09/23 History insulin glargine 100 unit/mL 33 unit subcut DAILY 05/27/21 10/10/23 10/09/23 History subcutaneous solution (Lantus U-100 Insulin) rivaroxaban 20 mg tablet (Xarelto) 1 tab PO DAILY@1700 05/27/21 10/10/23 10/09/23 History atorvastatin 40 mg tablet 40 mg PO DAILY 10/20/22 10/10/23 10/09/23 History sitagliptin phosphate 100 mg 100 mg PO DAILY 10/20/22 10/10/23 10/09/23 History tablet (Januvia) venlafaxine 150 mg 150 mg PO DAILY 10/20/22 10/10/23 10/09/23 History capsule,extended release 24 hr gabapentin 100 mg capsule 100 mg PO BID 12/11/22 10/10/23 10/09/23 History acetaminophen 500 mg tablet 1,000 mg PO BID PRN Pain 06/04/23 10/10/23 06/03/23 History amlodipine 10 mg tablet 5 mg PO DAILY 06/04/23 10/10/23 10/09/23 History ipratropium bromide 21 mcg (0.03 2 spray intranasal BID 06/04/23 10/10/23 10/09/23 History %) nasal spray pioglitazone 15 mg tablet 15 mg PO DAILY 06/04/23 10/10/23 10/09/23 History venlafaxine 37.5 mg 37.5 mg PO DAILY 06/04/23 10/10/23 10/09/23 History capsule,extended release 24 hr Physical Exam Vital Signs: Last Vital Signs Temp 97.8 F 10/12/23 08:00 Pulse 89 10/12/23 08:00 Resp 16 10/12/23 08:00 BP 126/63 10/12/23 08:00 Pulse Ox 98 10/12/23 08:00 O2 Del Method Room Air 10/12/23 08:00 BMI result Body Mass Index 39.5 Const Other: Appearance: Alert. Oriented X3. No acute distress. Eyes: Pupils equal, round and reactive to light. ENT: Pharynx normal. Neck: Normal inspection. Neck supple. No lymph nodes noted. No crepitus CVS: Normal heart rate and rhythm. Pulses normal. Normal S1 and S2 Respiratory: No respiratory distress. Breath sounds normal. No Wheezing. No rales Abdomen: Soft and nontender. No rigidity. No distention. Skin: Skin warm and dry. Normal skin color. Normal skin turgor. Extremities: No lower extremity edema. No Lacerations. No Rash Neuro: Oriented X 3. No motor deficit. No sensory deficit. Moving all extremities. No slurred speech. CN 2 through 12 grossly intact Psych: calm, cooperative, normal affect Results Lab Results 10/11/23 04:31 10/11/23 04:31 Lab results: Chemistry 10/10/23 10/10/23 10/10/23 00:17 06:08 11:29 Sodium 138 139 138 Potassium 5.4 H 5.1 4.0 D Carbon Dioxide 23 24 25 BUN 33 H 33 H 30 H Creatinine 1.24 1.15 1.04 Calcium 9.5 9.4 8.7 D 10/11/23 04:31 Sodium 138 Potassium 3.6 Carbon Dioxide 24 BUN 21 H Creatinine 0.86 Calcium 9.1 Hematology 10/10/23 10/11/23 00:17 04:31 WBC 13.7 H 9.5 Hgb 10.3 L 9.2 L Plt Count 138 L 131 L Urinalysis 10/10/23 12:01 Urine Color Yellow Urine Appearance Clear Urine pH 5.0 Ur Specific [place] >= 1.030 H Urine Protein Negative Urine Glucose (UA) >=1000 H Urine Ketones Negative Urine Blood Negative Urine Nitrite Negative Ur Leukocyte Esterase Negative Urine RBC 0-2 Urine WBC 0-5 Ur Squamous Epith Cells 0-2 Hyaline Casts 3-5 Assessment and Plan (1) Orthostatic hypotension: Status: Acute Plan Elderly man with orthostatic hypotension and essentially normal renal function. The urine specific gravity was more than 1.030 which suggestive of volume depletion. Other causes including adrenal insufficiency should be ruled out. Recommendation is to check urine for sodium, creatinine, osmolality. Check serum cortisol In the meantime I would recommend hydrating with normal saline. Watch orthostatic blood pressure changes over the next 24-48 hours. Use all orthostatic precautions including tight stockings and had an elevation to 30 degrees. Further workup will be based on above baseline workup She will follow along with the team. Thank you Procedures Date of Service Date of Service: 10/12/23
--- NOTE | 2023-10-12 15:57 | HO.PM.IMPN ---
Subjective Subjective Date of Service: 10/12/23 Interval History: seen and examined this morning follow up for orthostatic hypotension and fall reports intermittent dizziness still orthostatic Review of Systems Review of Systems: Yes all other systems are reviewed and are negative Constitutional Constitutional: Denies chills and Denies fever(s) ENT Ears, Nose, Mouth, and Throat: Reports dizziness Cardiovascular Cardiovascular: Denies chest pain, Denies palpitations and Denies dyspnea Respiratory Respiratory: Denies cough and Denies dyspnea Neurologic Neurologic: Reports dizziness Endocrine Endocrine: Denies palpitations Physical Exam Vital Signs: Vital Signs: Last Vital Signs Temp 97.8 F 10/12/23 08:00 Pulse 89 10/12/23 08:00 Resp 16 10/12/23 08:00 BP 126/63 10/12/23 08:00 Pulse Ox 98 10/12/23 08:00 O2 Del Method Room Air 10/12/23 08:00 BMI result Body Mass Index 39.5 Const: General: cooperative, comfortable, no acute distress, alert and awake Nutritional Appearance: obese Orientation/consciousness: patient oriented x3 Resp: Effort & Inspection: normal respiratory effort, able to speak in complete sentences, no respiratory distress and no use of accessory muscles Cardio: Rate: regular rate Heart sounds: Murmur heart sound present GI: Other: colostomy with brown stool Inspection: No distended Palpation (GI): Soft to palpation and nontender Neuro: General: patient oriented x3, moves all extremities and CN's II-XI intact bilaterally Extrem: Other: trace edema Objective Data Active Medications Acetaminophen (Acetaminophen 325 Mg Tablet) 650 mg PO Q6H PRN PRN Reason: Pain, Mild (Pain Scale 1-3) Atorvastatin Calcium (Atorvastatin Calcium 40 Mg Tablet) 40 mg PO DAILY [facility] Last Admin: 10/12/23 07:57 Dose: 40 mg Documented By: DOMINGO Donepezil HCl (Donepezil Hcl 10 Mg Tablet) 10 mg PO BEDTIME [facility] Last Admin: 10/11/23 21:16 Dose: 10 mg Documented By: HEATHER Gabapentin (Gabapentin 100 Mg Capsule) 100 mg PO BID [facility] Last Admin: 10/12/23 07:57 Dose: 100 mg Documented By: DOMINGO Glucose (Glucose Gel 15 Gm Gel..Gram.) 15 gm PO Q15M PRN; Protocol PRN Reason: per Hypoglycemia Standing Ord. Dextrose (D10) 250 mls @ 750 mls/hr IV Q15M PRN; Protocol PRN Reason: per Hypoglycemia Standing Ord. Sodium Chloride (Ns) 1,000 mls @ 100 mls/hr IVCONT .Q10H [facility] Last Admin: 10/12/23 11:13 Dose: 100 mls/hr Documented By: DOMINGO Insulin Glargine (Insulin Glargine,Hum.Rec.Anlog 100 Unit/Ml 10 Ml Vial) 33 unit SUBCUT DAILY [facility] Last Admin: 10/12/23 07:56 Dose: 33 unit Documented By: DOMINGO Insulin Human Lispro (Insulin Lispro 100 Unit/Ml 3 Ml Vial) 0 unit SUBCUT QIDACHS [facility]; Protocol Last Admin: 10/12/23 12:06 Dose: 2 unit Documented By: DOMINGO Nystatin (Nystatin Powder 15 Gm Bottle) 1 appl TOPICAL TID [facility]; Protocol Last Admin: 10/12/23 15:01 Dose: 1 appl Documented By: DOMINGO Ondansetron HCl (Ondansetron Hcl 4 Mg/2 Ml Vial) 4 mg IVPUSH Q8H PRN PRN Reason: Nausea and Vomiting Rivaroxaban (Rivaroxaban 20 Mg Tablet) 20 mg PO DAILY@1700 [facility] Last Admin: 10/11/23 16:12 Dose: 20 mg Documented By: RIVER Sodium Chloride (0.9 % Sodium Chloride Flush 3 Ml Syringe) 3 ml IVFLUSH QSHIFT [facility] Last Admin: 10/12/23 15:01 Dose: 3 ml Documented By: DOMINGO Venlafaxine HCl (Venlafaxine Hcl Er 37.5 Mg Cap.Er.24h) 37.5 mg PO DAILY [facility] Last Admin: 10/12/23 07:57 Dose: 37.5 mg Documented By: DOMINGO Venlafaxine HCl (Venlafaxine Hcl Er 150 Mg Cap.Er.24h) 150 mg PO DAILY [facility] Last Admin: 10/12/23 07:57 Dose: 150 mg Documented By: DOMINGO Labs 10/11/23 04:31 10/11/23 04:31 Labs: Laboratory Results - last 24 hr 10/11/23 10/11/23 10/12/23 15:59 20:16 07:10 POC Glucose 269 H 218 H 157 H 10/12/23 11:19 POC Glucose 197 H Assessment and Plan (1) Orthostatic hypotension: Status: Acute Plan This is an 82-year-old man who resented after a fall at home with noted orthostatic hypotension in the ED Orthostatic hypotension persistent orthostatic hypotension continue IVF orthostatic precautions, will order teds stockings home norvasc and atenolol on hold for now seen by nephrology, urine studies and am cortisol ordered dizziness likely due to orthostasis as above h/o with ?valve replacement echo pending Fall no injury Physical therapy consultation>rec STR but patient and family want him home with VNA paraoxysmal atrial fibrillation s/p ablation 2003 in sinus at this time continue xarelto for AC for now atenolol on hold for orthostatic hypotension Elevated troponin No chest pain No ischemic changes noted on EKG Hypertension norvasc 5 and atenolol 25 mg are on hold due to orthostatic hypotension Diabetes mellitus type 2 continue Lantus , Sliding scale, ADA diet januvia on hold Diabetic neuropathy Continue gabapentin moderate cognitive impairment continue aricept Mental health Continue home medications DVT prophylaxis with xarelto Attending Dr. Sr Full code patient requires ongoing inpatient stay for management of persistent orthostatic hypotension despite IV fluid Resuscitation hand specialist evaluation Quality Stroke Does the patient have a stroke diagnosis?: No VTE Prior VTE?: No VTE Risk Level:: Medical - moderate - high VTE Device Contraindication: N/A - Device Ordered VTE Drug Contraindication: Treatment Not Indicated
[2023-10-12 16:00] VITALS: BP 150/69; PULSE 84; RESP 15; TEMP 36.2; O2SAT 99
[2023-10-12 16:34] LABS: Glucose, Whole Blood 214 mg/dL (60-115)
[2023-10-12] MEDS: Rivaroxaban 20 MG TABLET PO (16:56)
[2023-10-12 20:00] VITALS: BP 144/71; PULSE 88; RESP 18; TEMP 36.2; O2SAT 97
[2023-10-12] MEDS: Donepezil HCl 10 MG TABLET PO (20:59)
[2023-10-12 21:39] LABS: Glucose, Whole Blood 219 mg/dL (60-115)
[2023-10-13] VITALS: BP 164/63; PULSE 83; RESP 14; TEMP 36; O2SAT 99
[2023-10-13 01:13] LABS: Osmolality Urine 392 mosm/kg (373-1093)
[2023-10-13 01:16] LABS: Creatinine Urine 20.72 mg/dL
[2023-10-13 03:47] VITALS: BP 166/75; PULSE 79; RESP 16; TEMP 36.6; O2SAT 94
[2023-10-13] MEDS: 0.9 % Sodium Chloride 1,000 ML 100 ML IVCONT (06:13)
[2023-10-13 07:15] VITALS: BP 168/74; PULSE 73; RESP 16; TEMP 36.6; O2SAT 98
[2023-10-13 07:23] LABS: Glucose, Whole Blood 143 mg/dL (60-115)
[2023-10-13] MEDS: Gabapentin 100 MG CAPSULE PO (07:36)
[2023-10-13] MEDS: Atorvastatin Calcium 40 MG TABLET PO (07:36)
[2023-10-13] MEDS: Venlafaxine HCl ER 37.5 MG CAP.ER.24H PO (07:36)
[2023-10-13] MEDS: Venlafaxine HCl ER 150 MG CAP.ER.24H PO (07:36)
[2023-10-13] MEDS: Insulin Glargine,Hum.rec.anlog 100 UNIT/ML 10 ML VIAL 33 UNIT SUBCUT (07:36)
[2023-10-13] MEDS: 0.9 % Sodium Chloride Flush 3 ML SYRINGE IVFLUSH (07:37)
[2023-10-13] MEDS: Nystatin Powder 15 GM BOTTLE 1 APPL TOPICAL (07:37)
[2023-10-13 07:58] VITALS: BP 173/81; PULSE 75
[2023-10-13 07:59] VITALS: BP 155/66; BP 156/67; PULSE 81; PULSE 91
[2023-10-13 09:05] LABS: Anion Gap 11 (12-20); Blood Urea Nitrogen 12 mg/dL (9-16); Calcium 8.8 mg/dL (8.4-10.2); Carbon Dioxide 27 mmol/L (22-29); Chloride 106 mmol/L (96-108); Creatinine Clr Calc Pharmacy 82.6; Estimated Glomerular Filt Rate > 60; Glucose Random 181 mg/dL (60-115); Potassium 3.7 mmol/L (3.3-5.1); Sodium 140 mmol/L (135-145)
--- NOTE | 2023-10-13 09:43 | PM.DS ---
DS: Providers Provider Date of Service: 10/13/23 Date of admission: 10/10/23 12:21 Date of discharge: 10/13/23 Primary care physician: Shahid Reno MD Consults: 10/11/23 11:32 Consult to Wound Care Routine Reason for consultation: skin tears left elbow/ dryness, scratch/scab to lower extremities Has provider been notified: Yes 10/12/23 07:54 Consult to Nephrology Routine Consulting Provider: [facility] [place] Reason for consultation: orthostatic hypotension Has provider been notified: No Attending physician on discharge: Prasanna Sr Discharging clinician: Nina Moyer DS: Diagnosis Discharge Diagnosis (1) Orthostatic hypotension: Status: Acute DS: Summary Hospital Course Hospital Course: From the H&P on the day of admission 82 year old man presenting after a fall and found to have orthostasis while in the ED. patient reported that he was in his kitchen he got up and felt dizzy like the room was spinning and suddenly fell to the ground. He was unable to get himself up. His called his son who came to the house and was also unable to get him up. They then decided to call EMS who brought the patient to the emergency department. Patient denied any loss of consciousness, chest pain, shortness for breath, nausea, vomiting, diarrhea, fever, chills. He was also noted to have elevated troponin with no ekg changes and no chest pain. His blood sugars were noted to be elevated and he was noted to be orthostatic. In the ED, Head CT, cervical spine ct negative for acute abnormality. He received IV fluids, insulin. He will be placed on observation for tx of orthostatic hypotension and fall. Orthostatic hypotension. Patient was treated with IVF and started on orthostatic precautions and provided with TEDs stockings. His blood pressure medication was initially placed on hold. He was seen in consultation by nephrology. Orthostatic blood pressures improved and patient was able to ambulate without symptoms. For dizziness, he had echo with showed known Moderate aortic stenosis with preserved ejection fraction. He was evaluated by Physical therapy who recommended STR but patient and family declined and elected to take him home with VNA and home PT services. Discussion was had with HCP, patient's son who feels that he will receive better care at home then at SNF and is aware of his risk for falling as he has had multiple falls before. Recommended to follow up to discuss ongoing anticogulation given frequent falls. Norvasc has been stopped and Dose of atenolol will be decreased by 50% from 25 to 12.5 mg daily and he will follow up nephrology in the next week. Time Attestation Discharge Coordination Time (in mins): 32 Quality: Safe Use of Opioids Does Pt have an Active Cancer Diagnosis on the Problem List?: No Quality: Stroke Does the patient have a stroke diagnosis?: No Physical Exam Vital Signs: Vital Signs: Last Vital Signs Temp 97.8 F 10/13/23 07:15 Pulse 91 10/13/23 07:59 Resp 16 10/13/23 07:15 BP 156/67 H 10/13/23 07:59 Pulse Ox 98 10/13/23 07:15 O2 Del Method Room Air 10/13/23 07:15 BMI result Body Mass Index 39.5 Const: General: cooperative, comfortable, no acute distress, alert and awake Nutritional Appearance: obese Orientation/consciousness: patient oriented x3 Resp: Effort & Inspection: normal respiratory effort, able to speak in complete sentences, no respiratory distress and no use of accessory muscles Cardio: Rate: regular rate Heart sounds: Murmur heart sound present GI: Other: colostomy with brown stool Inspection: No distended Palpation (GI): Soft to palpation and nontender Neuro: General: patient oriented x3, moves all extremities and CN's II-XI intact bilaterally Extrem: Other: trace edema DS: Data Data Completed and Pending Labs on day of discharge: Laboratory Results - last 24 hr 10/12/23 10/12/23 10/12/23 11:19 16:30 21:21 Hold Purple Top Sodium Potassium Chloride Carbon Dioxide Anion Gap BUN Creatinine Estim Creat Clear Calc Estimated GFR POC Glucose 197 H 214 H 219 H Random Glucose Calcium Urine Osmolality Ur Random Sodium Urine Creatinine 10/13/23 10/13/23 10/13/23 00:50 00:50 07:12 Hold Purple Top Sodium Potassium Chloride Carbon Dioxide Anion Gap BUN Creatinine Estim Creat Clear Calc Estimated GFR POC Glucose 143 H Random Glucose Calcium Urine Osmolality 392 Ur Random Sodium 130.0 Urine Creatinine 20.72 Cancelled 10/13/23 08:18 Hold Purple Top SEE NOTE Sodium 140 Potassium 3.7 Chloride 106 Carbon Dioxide 27 Anion Gap 11 L BUN 12 Creatinine 0.83 Estim Creat Clear Calc 82.6 Estimated GFR > 60 POC Glucose Random Glucose 181 H Calcium 8.8 Urine Osmolality Ur Random Sodium Urine Creatinine Discharge Plan Discharge Anticipated Discharge Date/Time: 10/13/23 09:35 Patient Disposition: Home Health Service Discharge Diagnosis: Orthostatic hypotension Fall Elevated troponin Referrals: [facility] [Outside] - 3-5 Days ([facility] will call you to schedule your home physical therapy appointments) Tavon Herndon MD [Physician] - 1 Week Shahid Reno MD [Primary Care Provider] - 1 Week Discharge Medications: New (DME) crescencio.[email or web address],knee,reg,xlrg Misc See Rx Instructions .Route Qty: 12 0RF Rx Instructions: As directed Continued donepezil 10 mg tablet 1 tab PO BEDTIME Xarelto 20 mg tablet 1 tab PO DAILY@1700 insulin glargine [Lantus U-100 Insulin] 100 unit/mL Solution 33 unit SUBCUT DAILY atorvastatin 40 mg tablet 40 mg PO DAILY Januvia 100 mg tablet 100 mg PO DAILY venlafaxine 150 mg capsule,extended release 24hr 150 mg PO DAILY Rx Instructions: take with 37.5 mg capsule pioglitazone 15 mg tablet 15 mg PO DAILY venlafaxine 37.5 mg capsule,extended release 24hr 37.5 mg PO DAILY Rx Instructions: take with 150 mg capsule ipratropium bromide 21 mcg (0.03 %) spray,non-aerosol 2 spray intranasal BID acetaminophen 500 mg Tablet 1,000 mg PO BID PRN (Reason: Pain) gabapentin 100 mg capsule 100 mg PO BID Changed atenolol 25 mg tablet 12.5 mg PO DAILY Qty: 90 0RF Discontinued amlodipine 10 mg tablet 5 mg PO DAILY Discharge Orders: Discharge Order (Routine); Ordered 10/13/23 Ordered By: Nina Moyer Diet: Advance to usual diet Activity on Discharge: As tolerated Stand Alone Forms: Patient Portal Discharge page Print Language: Welsh Care Plan Goals: Home with visiting nurse services and physical therapy Health Concerns: Orthostatic hypotension Fall Elevated troponin Plan of Treatment: Stop taking amlodipine decrease dose of atenolol from 25 mg daily to 12.5 mg daily call to schedule a follow up appointment with the nephrology office in one week Follow-up with primary care provider for follow up with blood pressure and discussion regarding falls and blood thinner Assessment: See discharge summary
[2023-10-13 10:27] LABS: Cortisol Random 13.4 ug/dL
[2023-10-13 11:16] LABS: Glucose, Whole Blood 219 mg/dL (60-115)
[2023-10-13 11:47] VITALS: BP 156/66; PULSE 62; RESP 16; TEMP 36.1; O2SAT 99
[2023-10-13] MEDS: Insulin Lispro 100 UNIT/ML 3 ML VIAL SUBCUT (12:10)
--- NOTE | 2023-10-13 13:21 | W.MHC.F2F ---
Service Date Service Date: 10/13/23 Encounter Date of encounter: 10/13/23 Reasons for Services Signs and symptoms assessed: needs long-term for blood pressure monitoring, med adjustment, education around orthostatic precautions Reason for long-term: other Reason for physical therapy: home safety and mobility and gait/transfer training Overseeing Care: Shahid eRno Homebound: Leaving the home is medically contraindicated at this time without the asist of a device and/or another person due th the listed conditions above and below. Reason homebound: unsteady gait / fall risk Certification: Based on the above findings, I certify that this patient is confined to the home and needs intermittent long-term care, physical therapy and/or speech therapy, or continues to need occupational therapy. The patient is under my care, and I have initiated the establishment of the plan of care. The patient will be followed by a physician who will periodically review the plan of care. Time Spent With Patient Time: Total time managing care of this patient today ____ minutes.
--- NOTE | 2023-10-13 13:24 | MHC.CM.PN ---
EMR reviewed. Per MD rounds patient is medically cleared for dc home w/ [facility]. Son is at bedside to transport home. [facility] is aware of dc.
== END 2023-10-13 13:57 | disposition home health service (06) | DRG 312 ==
LOC: HO.ED 10-10 11:55 → HO.S3 10-11 10:23 → HO.EDOVER 10-12 13:41 → HO.S3 10-12 13:41
PROVIDERS: Emergency Medicine; Admitting Provider Nurse Practitioner Acute Care; Emergency Provider Emergency Medicine; PCP Family Medicine; Visit Provider Physician Assistant Medical
DX: I95.1 Orthostatic hypotension (principal); I25.10 Atherosclerotic heart disease of native coronary artery without angina pectoris; E11.65 Type 2 diabetes mellitus with hyperglycemia; I35.0 Nonrheumatic aortic (valve) stenosis; E11.40 Type 2 diabetes mellitus with diabetic neuropathy, unspecified; I48.0 Paroxysmal atrial fibrillation; G47.33 Obstructive sleep apnea (adult) (pediatric); I10 Essential (primary) hypertension; Z93.3 Colostomy status; Z79.4 Long term (current) use of insulin; Z79.01 Long term (current) use of anticoagulants; Z79.899 Other long term (current) drug therapy
CPT/HCPCS: 36415; 70450; 72125; 80048; 80053; 81001; 82533; 82550; 82570; 82947; 83935; 84300; 84484; 85025; 85027; 93005; 93306; 97116; 97162; 97530; 99221; 99285; Q9957

== ENCOUNTER → 2023-10-09 23:51 | Outpatient (BNV) | payer MEDICARE, SELFPAY | PROVIDERS: Admitting Provider Nurse Practitioner Acute Care; Emergency Provider Emergency Medicine; Visit Provider Internal Medicine Cardiovascular Disease | DX: I45.10 Unspecified right bundle-branch block (principal) | CPT/HCPCS: 93010 ==

== ENCOUNTER → 2023-10-10 05:43 | Outpatient (BNV) | payer MEDICARE, SELFPAY | PROVIDERS: Admitting Provider Nurse Practitioner Acute Care; Emergency Provider Emergency Medicine; Visit Provider Internal Medicine Cardiovascular Disease | DX: R79.89 Other specified abnormal findings of blood chemistry (principal) | CPT/HCPCS: 93010 ==

== ENCOUNTER 2023-10-10 12:21 | Outpatient (BNV) | payer MEDICARE, SELFPAY | END 2023-10-12 10:49 | PROVIDERS: Admitting Provider Nurse Practitioner Acute Care; Emergency Provider Emergency Medicine; PCP Family Medicine; Visit Provider Internal Medicine Cardiovascular Disease | DX: I35.2 Nonrheumatic aortic (valve) stenosis with insufficiency (principal) | CPT/HCPCS: 93306 ==

== ENCOUNTER → 2023-10-10 12:21 | Outpatient (BNV) | payer MEDICARE, SELFPAY | PROVIDERS: Admitting Provider Nurse Practitioner Acute Care; Emergency Provider Emergency Medicine; PCP Family Medicine; Visit Provider Nurse Practitioner Acute Care | DX: I95.1 Orthostatic hypotension (principal) | CPT/HCPCS: 99223; 99232; 99233; 99239; G0180 ==

== ENCOUNTER → 2023-10-10 12:21 | Outpatient (BNV) | payer MEDICARE, SELFPAY | PROVIDERS: Admitting Provider Nurse Practitioner Acute Care; Emergency Provider Emergency Medicine; PCP Family Medicine; Visit Provider Internal Medicine Hypertension Specialist | DX: I95.1 Orthostatic hypotension (principal) | CPT/HCPCS: 99222 ==